=== PATIENT | male | born 1955 ===

== ENCOUNTER 2017-09-07 10:27 | Emergency (ER) | payer OTHER ==
[2017-09-07 10:28] VITALS: BMI 27.9
[2017-09-07 10:38] VITALS: TEMP 98
--- NOTE | 2017-09-07 11:08 | C.PDOC ---
History Of Present Illness 61 y/o male with hx of HTN and hyperlipidemia, c/o rash since this morning. Patient reports that he ate food with maral around 05:00 and is unsure if it is related to allergic reaction. Patient notes becoming itchy around 06:00 this morning, with hives. . Patient drank water with lemon and notes improvements of symptoms. Denies new substances. No wheezing or fever. No intra-orbital swelling or SOB. Time Seen by Provider: 09/07/17 10:43 Chief Complaint (Nursing): Allergic Reaction History Per: Patient History/Exam Limitations: no limitations Onset/Duration Of Symptoms: Hrs, Sudden Onset Current Symptoms Are (Timing): Still Present Quality Of Symptoms: Itching Severity: Mild Recent travel outside of the [place]: No Additional History Per: Patient Past Medical History Reviewed: Historical Data, Nursing Documentation, Vital Signs Vital Signs: Last Vital Signs Temp 98 F 09/07/17 10:33 Pulse 79 09/07/17 11:27 Resp 17 09/07/17 11:27 BP 136/79 09/07/17 11:27 Pulse Ox 99 09/07/17 11:57 - Medical History PMH: Arthritis, HTN, Hypercholesterolemia Denies: Chronic Kidney Disease Surgical History: Cholecystectomy, Tonsillectomy Family History: States: Unknown Family Hx - Social History Hx Alcohol Use: No Hx Substance Use: No - Immunization History Hx Tetanus Toxoid Vaccination: No Hx Influenza Vaccination: No Hx Pneumococcal Vaccination: No Review Of Systems Except As Marked, All Systems Reviewed And Found Negative. Constitutional: Negative for: Fever ENT: Negative for: Mouth Swelling, Throat Swelling Respiratory: Negative for: Shortness of Breath, Wheezing Skin: Positive for: Rash (Allergic reaction) Physical Exam - Physical Exam Appears: Non-toxic, No Acute Distress Skin: Warm, Dry, Rash (Mild maculopapular rash to the upper chest and shoulders. ) Head: Atraumatic, Normacephalic Oral Mucosa: Moist Tongue: Normal Appearing, No Swelling Lips: Normal Appearing, No Swelling Throat: Normal, No Erythema Neck: Supple Cardiovascular: Rhythm Regular, No Murmur Respiratory: Normal Breath Sounds, No Accessory Muscle Use, No Stridor, No Wheezing Neurological/Psych: Oriented x3 ED Course And Treatment O2 Sat by Pulse Oximetry: 99 (RA) Pulse Ox Interpretation: Normal Medical Decision Making Medical Decision Making: Plans: * Benadryl * Pepcid * Prednisone Patient is resting comfortably, tolerating PO, has no shortness of breath, has no intra-oral swelling, no stridor. Patient notes that pruritus has improved.. Patient was advised to avoid potential allergens, and to follow up with physician in 1-2 days. pt advised to d/c any new medications and avoid any potential precipitant food.s . pt advised to f/u in clinic for specialist. eval Disposition - Disposition Referrals: [facility] [Outside] [facility] [Outside] [facility] [Outside] [email or web address] [Outside] Disposition: HOME/ ROUTINE Disposition Time: 12:00 Condition: STABLE Additional Instructions: please follow up with your doctor. return to er with worsening symptoms or concerns. Prescriptions: DiphenhydrAMINE [Benadryl] 25 mg PO Q4 PRN #20 cap PRN Reason: Itching / Pruritus Famotidine [Pepcid] 20 mg PO DAILY #7 tab Prednisone 50 mg PO DAILY #4 tablet Instructions: Allergies (ED) Forms: [facility] ([place]i) Print Language: CZECH - Clinical Impression Clinical Impression: Allergic reaction - Scribe Statement The provider has reviewed the documentation as recorded by the Scribe Lacy duggan All medical record entries made by the Scribe were at my direction and personally dictated by me. I have reviewed the chart and agree that the record accurately reflects my personal performance of the history, physical exam, medical decision making, and the department course for this patient. I have also personally directed, reviewed, and agree with the discharge instructions and disposition.
[2017-09-07 11:27] VITALS: BP 136/79; PULSE 79; RESP 17
[2017-09-07 11:58] VITALS: O2SAT 99
== END 2017-09-07 11:29 | disposition home or self-care (01) ==
LOC: C.ER 10:27
DX: T78.40XA Allergy, unspecified, initial encounter (principal)

== ENCOUNTER 2017-10-16 08:52 | Inpatient (IN) | payer OTHER ==
[2017-10-16 08:52] VITALS: BMI 27.9
--- NOTE | 2017-10-16 10:15 | C.PDOC ---
History Of Present Illness 62 year old male with PMHx of CVA, HTN and HLD presents to the ED for evaluation of CP, palpitations and SOB on exertion. 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 Patient reports he was admitted 1 month ago for similar symptoms, he was d/c with prescriptions that finished, he states that while using the medications he still felt palpitations in his chest. Patient reports that yesterday while he was walking he felt SOB and palpitations once he got home he tried to lay down and rest but he still felt CP and palpitations. Patient denies fever, chills, abdominal pain, nausea, vomit, diarrhea, diaphoresis. Time Seen by Provider: 10/16/17 09:39 Chief Complaint (Nursing): Chest Pain History Per: Patient History/Exam Limitations: no limitations Onset/Duration Of Symptoms: Days Current Symptoms Are (Timing): Still Present Severity: Mild Pain Scale Rating Of: 4 Quality: "Pain" Exacerbating Factors: Movement, Exertion Alleviating Factors: None Recent travel outside of the [place]: No Additional History Per: Patient Past Medical History Reviewed: Historical Data, Nursing Documentation, Vital Signs Vital Signs: Last Vital Signs Temp 97.6 F 10/16/17 08:57 Pulse 108 H 10/16/17 13:30 Resp 18 10/16/17 13:30 BP 112/61 10/16/17 13:30 Pulse Ox 97 10/16/17 13:30 - Medical History PMH: Arthritis, HTN, Hypercholesterolemia Denies: Chronic Kidney Disease Surgical History: Cholecystectomy, Tonsillectomy Family History: States: Unknown Family Hx - Social History Hx Alcohol Use: No Hx Substance Use: No - Immunization History Hx Tetanus Toxoid Vaccination: No Hx Influenza Vaccination: No Hx Pneumococcal Vaccination: No Review Of Systems Constitutional: Negative for: Fever, Chills Cardiovascular: Positive for: Chest Pain, Palpitations Respiratory: Positive for: SOB with Excertion. Negative for: Cough Gastrointestinal: Negative for: Nausea, Vomiting, Abdominal Pain Musculoskeletal: Negative for: Back Pain Skin: Negative for: Rash Neurological: Negative for: Weakness, Numbness, Headache, Dizziness Physical Exam - Physical Exam Appears: Non-toxic, No Acute Distress Skin: Normal Color, Warm, Dry Head: Atraumatic, Normacephalic Nose: No Discharge, No Deformity Oral Mucosa: Moist Neck: Normal ROM, Supple Chest: Symmetrical Cardiovascular: Rhythm Regular, No Murmur Respiratory: Normal Breath Sounds, No Rales, No Rhonchi, No Wheezing Gastrointestinal/Abdominal: Soft, No Tenderness Extremity: Normal ROM, No Pedal Edema, No Calf Tenderness, No Swelling Neurological/Psych: Oriented x3, Normal Speech, Normal Cognition Gait: Steady ED Course And Treatment - Laboratory Results Result Diagrams: 10/16/17 10:37 10/16/17 10:37 O2 Sat by Pulse Oximetry: 100 (On RA) Pulse Ox Interpretation: Normal Medical Decision Making Medical Decision Making: Impression : 62 y/o male with CP, palpitations, SOB. Plan: * EKG * CXR * Plavix 600 mg PO * Tropol XL 25 mg PO * Blood work Spoke with laboratory gave result for: * Troponin 2.87 * BNP 2420 Disposition Discussed With DrMckenna: Cathie Calloway Doctor Will See Patient In The: Hospital Counseled Patient/Family Regarding: Studies Performed, Diagnosis - Disposition Disposition: HOSPITALIZED Disposition Time: 13:11 Condition: GUARDED - POA Present On Arrival: None - Clinical Impression Clinical Impression: NSTEMI (non-ST elevated myocardial infarction) - Scribe Statement The provider has reviewed the documentation as recorded by the Scribe Naseem Fraga All medical record entries made by the Scribe were at my direction and personally dictated by me. I have reviewed the chart and agree that the record accurately reflects my personal performance of the history, physical exam, medical decision making, and the department course for this patient. I have also personally directed, reviewed, and agree with the discharge instructions and disposition.
[2017-10-16 10:46] LABS: BASO # 0.1 K/uL (0.0-0.2); BASO % 0.6 % (0.0-2.0); EOS # 0.1 K/uL (0.0-0.7); EOS % 1.3 % (0.0-4.0); HEMATOCRIT 41.8 % (35.0-51.0); LYMPH # 1.4 K/uL (1.0-4.3); LYMPH % 15.7 % (20.0-40.0); MEAN CELL VOLUME 94.6 fL (80.0-94.0); MEAN CORPUSCULAR HEMOGLOBIN 32.6 pg (27.0-31.0); MEAN CORPUSCULAR HGB CONC 34.5 g/dL (33.0-37.0); MONO # 0.8 K/uL (0.0-0.8); MONO % 9.3 % (0.0-10.0); NRBC % 0.1 % (0.0-2.0); RED CELL DISTRIBUTION WIDTH 13.7 % (11.5-14.5); WHITE BLOOD COUNT 9.1 K/uL (4.8-10.8)
[2017-10-16 11:04] LABS: ALKALINE PHOSPHATASE 70 U/L (38-126); ALT/SGPT 25 U/L (21-72); AST/SGOT 71 U/L (17-59); BILIRUBIN,TOTAL 0.8 mg/dL (0.2-1.3); BLOOD UREA NITROGEN 13 mg/dL (9-20); CALCIUM 8.4 mg/dl (8.6-10.4); CARBON DIOXIDE 33 mmol/L (22-30); CHLORIDE 96 mmol/L (98-107); GFR AFRICAN-AMERICAN > 60; GLUCOSE,RANDOM 110 mg/dL (75-110); POTASSIUM 3.5 mmol/L (3.6-5.2); SODIUM 133 mmol/L (132-148); TOTAL PROTEIN 6.2 g/dL (6.3-8.3)
[2017-10-16 11:06] LABS: ALB/GLOB RATIO 1.6 (1.0-2.1)
[2017-10-16] MEDS ORDERED: Metoprolol Succinate 25 mg XL Tab PO STA (13:17)
[2017-10-16] MEDS ORDERED: Heparin25000 units/250ml 1/2NS 25,000 UNITS/250 ML BAG IV ONE (13:21)
--- NOTE | 2017-10-16 14:03 | CP.PCM.CON ---
<Michelle Pettit - Last Filed: 10/16/17 14:10> History of Present Illness - History of Present Illness History of Present Illness: PGY 2 consult note for cardiology, Dr. Maria 62 year old male with past medical history of HTN, HLD, hx of CVA in 2007 vitamin D deficiency presented to ED for left sided chest pain. Cardiology is consulted due to NSTEMI. Pt states that about 4 days ago he developed left sided chest pain. Pain was intermittent and radiating down left arm. Patient states that yesterday pain worsened after he went for a walk. Pain was also accompanied with palpitations. Pain was no associated with N/V, diaphoresis. 1 month ago, patient presented to hospital for left sided chest pain as well. At that time, cardiac markers and EKG were negative. Stress test done in 07/2016 was also negative. Patient denies having any recent travels or recent illnesses. Patient denies having any F/C, abd pain, N/V/D/C, LE pain or swelling, SOB, cough. 12 point ROS are negative except for the above mentioned PMHx: stated above PSHx: Lap Cholecystecomy 2011, per chart review: amygdala 1984 Allergies: Penicillin (known from allergy testing in past) Home medications: Plavix 75mg po qd, Aspirin 81 mg, tamsulosin 0.4mg po qd, vitamin D 2000u po qd, irbesartan 150mg po qd, hydrocholothiazide 25mg po qd, atorvastatin 40mg po qd, Ranexa? FamHx: Father - DMII, Mother - HTN SocialHx: 2 ppd for 30 years, quit smoking 30 years ago; denies alcohol or illicit drug use; lives at home with Review of Systems - Constitutional Constitutional: absent: Chills, Fever, Headache - EENT Eyes: absent: Change in Vision Nose/Mouth/Throat: absent: Nasal Congestion, Nasal Discharge, Sore Throat - Cardiovascular Cardiovascular: Chest Pain, Palpitations, Radiating Pain, Rapid Heart Rate. absent: Dyspnea, Edema, Pedal Edema - Respiratory Respiratory: absent: Cough, Dyspnea, Dyspnea on Exertion, Wheezing, Pain with Coughing - Gastrointestinal Gastrointestinal: absent: Abdominal Pain, Constipation, Diarrhea, Nausea, Vomiting - Genitourinary Genitourinary: absent: Urinary Frequency - Musculoskeletal Musculoskeletal: absent: Muscle Weakness - Neurological Neurological: absent: Numbness, Headaches, Paresthesias, Syncope - Psychiatric Psychiatric: absent: Confusion Past Patient History - Past Medical History & Family History Past Medical History?: Yes - Past Social History Smoking Status: Former Smoker - CARDIAC Hx Hypercholesterolemia: Yes Hx Hypertension: Yes - PULMONARY Hx Respiratory Disorders: No - NEUROLOGICAL Hx Neurological Disorder: Yes HX Cerebrovascular Accident: Yes (2006) - HEENT Hx HEENT Problems: No - RENAL Hx Chronic Kidney Disease: No - ENDOCRINE/METABOLIC Hx Endocrine Disorders: No - HEMATOLOGICAL/ONCOLOGICAL Hx Blood Disorders: No - INTEGUMENTARY Hx Dermatological Problems: No - MUSCULOSKELETAL/RHEUMATOLOGICAL Hx Arthritis: Yes - GASTROINTESTINAL Hx Gastrointestinal Disorders: No - GENITOURINARY/GYNECOLOGICAL Hx Genitourinary Disorders: No - PSYCHIATRIC Hx Substance Use: No - SURGICAL HISTORY Hx Cholecystectomy: Yes Hx Tonsillectomy: Yes - ANESTHESIA Hx Anesthesia: Yes Hx Anesthesia Reactions: No Hx Malignant Hyperthermia: No Meds Allergies/Adverse Reactions: Allergies Allergy/AdvReac Type Severity Reaction Status Date / Time Penicillins Allergy ANAPHYLAXIS Verified 10/16/17 08:58 diphenhydramine AdvReac Verified 10/16/17 12:19 [From Benadryl] - Medications Medications: Current Medications Aspirin (Ecotrin) 81 mg PO DAILY J[facility]ON Clopidogrel Bisulfate (Plavix) 75 mg PO DAILY [facility] Heparin Sodium/Sodium Chloride (Heparin 59379 Units/250ml 1/2 Normal Saline) 25 ,000 units in 250 mls @ 13.608 mls/hr IV .[id number] ONE; 15 UNITS/KG/HR PRN Reason: Protocol Stop: 10/17/17 07:43 Nitroglycerin (Nitrostat Sl Tab) 0.4 mg SL Q5M PRN PRN Reason: Pain, Mild (1-3) Physical Exam - Constitutional Appears: Non-toxic, No Acute Distress - Head Exam Head Exam: ATRAUMATIC, NORMOCEPHALIC - Eye Exam Eye Exam: EOMI - ENT Exam ENT Exam: Mucous Membranes Moist - Respiratory Exam Respiratory Exam: Clear to Auscultation Bilateral. absent: Accessory Muscle Use , Rales, Rhonchi, Wheezes, Respiratory Distress - Cardiovascular Exam Cardiovascular Exam: Tachycardia, +S1, +S2. absent: Diastolic murmur, Gallop, Rubs, Systolic Murmur - GI/Abdominal Exam GI & Abdominal Exam: Normal Bowel Sounds, Soft. absent: Distended, Firm, Guarding, Rigid, Tenderness - Extremities Exam Extremities exam: Negative for: pedal edema, tenderness - Neurological Exam Neurological exam: Alert, Oriented x3 - Psychiatric Exam Psychiatric exam: Normal Affect, Normal Mood - Skin Skin Exam: Dry, Intact, Normal Color, Warm Results - Vital Signs Recent Vital Signs: Last Vital Signs Temp 97.6 F 10/16/17 08:57 Pulse 67 10/16/17 12:11 Resp 18 10/16/17 12:11 BP 103/57 L 10/16/17 12:11 Pulse Ox 100 10/16/17 13:13 - Labs Result Diagrams: 10/16/17 10:37 10/16/17 10:37 Labs: Laboratory Results - last 24 hr 10/16/17 10/16/17 10:37 10:37 WBC 9.1 RBC 4.42 Hgb 14.4 Hct 41.8 MCV 94.6 H MCH 32.6 H MCHC 34.5 RDW 13.7 Plt Count 159 MPV 10.0 Neut % (Auto) 73.1 Lymph % (Auto) 15.7 L Real % (Auto) 9.3 Eos % (Auto) 1.3 Baso % (Auto) 0.6 Neut # 6.7 Lymph # 1.4 Real # 0.8 Eos # 0.1 Baso # 0.1 Sodium 133 Potassium 3.5 L Chloride 96 L Carbon Dioxide 33 H Anion Gap 8 L BUN 13 Creatinine 0.9 Est GFR ( Amer) > 60 Est GFR (Non-Af Amer) > 60 Random Glucose 110 Calcium 8.4 L Total Bilirubin 0.8 AST 71 H D ALT 25 Alkaline Phosphatase 70 Troponin I 2.8700 H* NT-Pro-B Natriuret Pep 2420 H Total Protein 6.2 L Albumin 3.9 Globulin 2.4 Albumin/Globulin Ratio 1.6 - EKG Data EKG Interpreted by: ER Physician Assessment & Plan - Assessment and Plan (Free Text) Assessment: 62 year old male with past medical history of HTN, HLD, CVA in 2007 on DAPT ( noncompliant for 1 month), impaired glucose tolerance is admitted for NSTEMI with elevated troponin and EKG changes. 1. NSTEMI - pt will have STAT echo done. Will be taken for cardiac cath today - Pt started on heparin drip therapeutic dose. - Stat dose of plavix and Aspirin and metoprolol given - Nitroglycerine prn - Continue daily Aspirin, plavix and metoprolol - Blood work from 09/02/17 showed Hgb A1c of 5.8; TG 71; Cholestrol 99; LDL 56; HDL 37 - Will continue to monitor VS Case discussed with Dr. Maria. All orders and management per Dr. Maria - Date & Time Date: 10/16/17 Time: 14:15 <Tyrone Maria - Last Filed: 10/16/17 17:16> Meds - Medications Medications: Current Medications Aspirin (Ecotrin) 81 mg PO DAILY JASON Clopidogrel Bisulfate (Plavix) 75 mg PO DAILY [facility] Heparin Sodium/Sodium Chloride (Heparin 52208 Units/250ml 1/2 Normal Saline) 25 ,000 units in 250 mls @ 13.608 mls/hr IV .[id number] ONE; 15 UNITS/KG/HR PRN Reason: Protocol Stop: 10/17/17 07:43 Last Admin: 10/16/17 14:30 Dose: 15 units/kg/hr, 13.608 mls/hr Metoprolol Succinate (Toprol Xl) 12.5 mg PO DAILY [facility] Nitroglycerin (Nitrostat Sl Tab) 0.4 mg SL Q5M PRN PRN Reason: Pain, Mild (1-3) Last Admin: 10/16/17 16:52 Dose: 0.4 mg Rosuvastatin Calcium (Crestor) 20 mg PO HS [facility] Results - Vital Signs Recent Vital Signs: Last Vital Signs Temp 97.6 F 10/16/17 08:57 Pulse 108 H 10/16/17 13:30 Resp 18 10/16/17 13:30 BP 112/61 10/16/17 13:30 Pulse Ox 100 10/16/17 14:55 - Labs Result Diagrams: 10/16/17 10:37 10/16/17 10:37 Labs: Laboratory Results - last 24 hr 10/16/17 10/16/17 10/16/17 10:37 10:37 14:54 WBC 9.1 RBC 4.42 Hgb 14.4 Hct 41.8 MCV 94.6 H MCH 32.6 H MCHC 34.5 RDW 13.7 Plt Count 159 MPV 10.0 Neut % (Auto) 73.1 Lymph % (Auto) 15.7 L Real % (Auto) 9.3 Eos % (Auto) 1.3 Baso % (Auto) 0.6 Neut # 6.7 Lymph # 1.4 Real # 0.8 Eos # 0.1 Baso # 0.1 APTT 34 Sodium 133 Potassium 3.5 L Chloride 96 L Carbon Dioxide 33 H Anion Gap 8 L BUN 13 Creatinine 0.9 Est GFR ( Amer) > 60 Est GFR (Non-Af Amer) > 60 Random Glucose 110 Hemoglobin A1c Calcium 8.4 L Total Bilirubin 0.8 AST 71 H D ALT 25 Alkaline Phosphatase 70 Troponin I 2.8700 H* NT-Pro-B Natriuret Pep 2420 H Total Protein 6.2 L Albumin 3.9 Globulin 2.4 Albumin/Globulin Ratio 1.6 LDL Cholesterol Direct Influenza Typ A,B (EIA) 10/16/17 10/16/17 10/16/17 16:17 16:17 16:17 WBC RBC Hgb Hct MCV MCH MCHC RDW Plt Count MPV Neut % (Auto) Lymph % (Auto) Real % (Auto) Eos % (Auto) Baso % (Auto) Neut # Lymph # Real # Eos # Baso # APTT Sodium Potassium Chloride Carbon Dioxide Anion Gap BUN Creatinine Est GFR ( Amer) Est GFR (Non-Af Amer) Random Glucose Hemoglobin A1c 5.6 Calcium Total Bilirubin AST ALT Alkaline Phosphatase Troponin I NT-Pro-B Natriuret Pep Total Protein Albumin Globulin Albumin/Globulin Ratio LDL Cholesterol Direct 36 Influenza Typ A,B (EIA) Negative for flu a/b Attending/Attestation - Attestation I have personally seen and examined this patient.: Yes I have fully participated in the care of the patient.: Yes I have reviewed all pertinent clinical information: Yes Notes (Text): 10/16/17 17:15 62 year old male with hx of htn, dyslipidemia presenting with typical CP and + ve TnI Echo - reviewed mild inferior hypokinesis with normal LVEF IV heparin ICU monitoring GDMT for CAD ( DAPT , BB, statins ) plan for cath at [facility] [place], [place] tomorrow at 2 pm NPO p BF in am
--- NOTE | 2017-10-16 14:26 | CP.PCM.HP ---
History of Present Illness - History of Present Illness History of Present Illness: Patient seen, examined at approximately 1:30PM on 10/16/17 on [facility] 7. CC: Palpitations HPI: 62 year old Male PMHX CVA (6-7 years ago), HTN, Lipid disorder comes in for chest pain, palpitations and associated dyspnea on exertion. Patient reports last Saturday, he felt chest pain, over left side of chest, while walking up hill, which stopped and had to breathe heavy. Patient reports chest pain improved on Saturday but was intermittent. Last night around 3:30AM, chest pain was more persistent, more frequent and he could not sleep. Patient reports he took his Plavix 75mgX1, Irebsratan [id number], Ranexa 500mg X1, and HCTZ 25mg X1last night but did not take Aspirin for the past month because did not have script. Patient reports when he first came into the Emergency Room his chest pain was 8/10, and now on assessment it is 3/10 on pain scale. Patient reports he is normally able to walk 40 blocks with ease prior to Saturday' s episode. ROS: denies headache, denies change in vision, denies hearing loss, reports chest pain, reports dyspnea on exertion, and angina on rest, denies cough, denies abdominal pain, denies nausea, denies vomitting, denies numbness, denies tingling, denies edema, denies dizziness. Medical Hx: CVA (6-7 years ago), Lipid disorder, HTN, impaired glucose tolerance , Vitamin D deficiency Surgery: Lap Cholecystecomy 2011, per chart review: 1984 Medications: Plavix 75mg po qd, tamsulosin 0.4mg po qd, vitamin D 2000u po qd, irbesartan 150mg po qd, hydrocholothiazide 25mg po qd, atorvastatin 40mg po qd, ranexa 500mg twice a day Allergies: PCN, benadryl (SE: makes his blood pressure come down?) Social: former smoker, stopped 30 years ago, 2ppd for 20 years, denies alcohol or illicit drug use; lives at home with Family Hx: Father- DM, Mother--HTN, No family hx of NC/CAD PMD: Dr. Alas, [facility] In the ED, given Aspirin 325mg POX1. Patient seen and evaluated by Dr Maria and his team, pending echo stat to determine next step. Cardiology discussed with patient and at bedside, with assistance of translation from Sarah Luong-speaker for cardiac cath given nonstemi. Discussed with ICU, Dr Boucher, awaiting plan from cardiology team. Present on Admission - Present on Admission Any Indicators Present on Admission: No History of DVT/PE: No History of Uncontrolled Diabetes: No Urinary Catheter: No Decubitus Ulcer Present: No Review of Systems - Constitutional Constitutional: Excessive Sweating, Lethargy. absent: Chills, Fever, Weakness - EENT Eyes: absent: Blurred Vision, Change in Vision Ears: Decreased Hearing (right sided, from prior stroke). absent: Ear Pain Nose/Mouth/Throat: absent: Epistaxis, Sore Throat - Cardiovascular Cardiovascular: Chest Pain, Chest Pain at Rest, Diaphoresis, Dyspnea, Palpitations, Radiating Pain. absent: Edema, Lightheadedness, Pedal Edema - Respiratory Respiratory: Dyspnea, Dyspnea on Exertion. absent: Cough, Hemoptysis, Wheezing - Gastrointestinal Gastrointestinal: absent: Abdominal Pain, Constipation, Diarrhea, Nausea, Vomiting - Genitourinary Genitourinary: absent: Dysuria - Musculoskeletal Musculoskeletal: absent: Myalgias, Numbness - Integumentary Integumentary: absent: Dry Skin, Unusual Bruising - Neurological Neurological: absent: Confusion, Convulsions, Headaches, Loss of Vision - Endocrine Endocrine: Fatigue, Palpitations Past Patient History - Past Medical History & Family History Past Medical History?: Yes - Past Social History Smoking Status: Former Smoker Alcohol: None Drugs: Denies Home Situation {Lives}: With Family - CARDIAC Hx Cardiac Disorders: Yes Hx Hypercholesterolemia: Yes Hx Hypertension: Yes - PULMONARY Hx Respiratory Disorders: No - NEUROLOGICAL Hx Neurological Disorder: Yes HX Cerebrovascular Accident: Yes (2006) - HEENT Hx HEENT Problems: No - RENAL Hx Chronic Kidney Disease: No - ENDOCRINE/METABOLIC Hx Endocrine Disorders: No - HEMATOLOGICAL/ONCOLOGICAL Hx Blood Disorders: No - INTEGUMENTARY Hx Dermatological Problems: No - MUSCULOSKELETAL/RHEUMATOLOGICAL Hx Arthritis: Yes - GASTROINTESTINAL Hx Gastrointestinal Disorders: No - GENITOURINARY/GYNECOLOGICAL Hx Genitourinary Disorders: No - PSYCHIATRIC Hx Substance Use: No - SURGICAL HISTORY Hx Cholecystectomy: Yes Hx Tonsillectomy: Yes - ANESTHESIA Hx Anesthesia: Yes Hx Anesthesia Reactions: No Hx Malignant Hyperthermia: No Meds Allergies/Adverse Reactions: Allergies Allergy/AdvReac Type Severity Reaction Status Date / Time Penicillins Allergy ANAPHYLAXIS Verified 10/16/17 08:58 diphenhydramine AdvReac Verified 10/16/17 12:19 [From Benadryl] Physical Exam - Constitutional Appears: Non-toxic, No Acute Distress - Head Exam Head Exam: NORMAL INSPECTION - Eye Exam Eye Exam: EOMI, PERRL. absent: Nystagmus, Scleral icterus Pupil Exam: NORMAL ACCOMODATION - ENT Exam ENT Exam: Mucous Membranes Moist - Neck Exam Neck exam: Negative for: Meningismus, Thyromegaly - Respiratory Exam Respiratory Exam: Clear to Auscultation Bilateral, NORMAL BREATHING PATTERN. absent: Rales, Rhonchi, Wheezes, Stridor - Cardiovascular Exam Cardiovascular Exam: Tachycardia, +S1, +S2. absent: JVD - GI/Abdominal Exam GI & Abdominal Exam: Normal Bowel Sounds, Soft. absent: Distended, Firm, Guarding, Rebound, Rigid, Tenderness - Extremities Exam Extremities exam: Positive for: normal capillary refill, pedal pulses present. 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 no erythema, no swelling Muscle strength 5/5 sensation intact - Back Exam Back exam: absent: CVA tenderness (L), CVA tenderness (R), rash noted - Neurological Exam Neurological exam: Alert, CN II-XII Intact, Oriented x3 - Expanded Neurological Exam Expanded Neuro motor strength exam: Left Upper Extremity: 5, Right Upper Extremity: 5, Left Lower Extremity: 5, Right Lower Extremity: 5 Coma Scale Eye Opening: SPONTANEOUS Coma Scale Motor Response: OBEYS COMMANDS Coma Scale Verbal: Oriented Coma Scale Total: 15 - Psychiatric Exam Psychiatric exam: Normal Affect, Normal Mood - Skin Skin Exam: Dry, Intact, Normal Color, Warm Results - Vital Signs Recent Vital Signs: Last Vital Signs Temp 97.6 F 10/16/17 08:57 Pulse 67 10/16/17 12:11 Resp 18 10/16/17 12:11 BP 103/57 L 10/16/17 12:11 Pulse Ox 100 10/16/17 13:13 - Labs Result Diagrams: 10/16/17 10:37 10/16/17 10:37 Labs: Laboratory Results - last 24 hr 12/20/17 12/20/17 10:37 10:37 WBC 9.1 RBC 4.42 Hgb 14.4 Hct 41.8 MCV 94.6 H MCH 32.6 H MCHC 34.5 RDW 13.7 Plt Count 159 MPV 10.0 Neut % (Auto) 73.1 Lymph % (Auto) 15.7 L Castro % (Auto) 9.3 Eos % (Auto) 1.3 Baso % (Auto) 0.6 Neut # 6.7 Lymph # 1.4 Castro # 0.8 Eos # 0.1 Baso # 0.1 Sodium 133 Potassium 3.5 L Chloride 96 L Carbon Dioxide 33 H Anion Gap 8 L BUN 13 Creatinine 0.9 Est GFR ( Amer) > 60 Est GFR (Non-Af Amer) > 60 Random Glucose 110 Calcium 8.4 L Total Bilirubin 0.8 AST 71 H D ALT 25 Alkaline Phosphatase 70 Troponin I 2.8700 H* NT-Pro-B Natriuret Pep 2420 H Total Protein 6.2 L Albumin 3.9 Globulin 2.4 Albumin/Globulin Ratio 1.6 Assessment & Plan (1) Hypokalemia Status: Acute (2) NSTEMI (non-ST elevated myocardial infarction) Status: Acute (3) Benign prostatic hyperplasia Status: Chronic Priority: Medium (4) HLD (hyperlipidemia) Status: Chronic Priority: Medium (5) History of CVA (cerebrovascular accident) Status: Chronic Priority: Medium (6) Hypertension Status: Chronic Priority: Medium (7) Impaired glucose tolerance Status: Chronic Priority: Medium (8) Prophylactic measure Status: Resolved Priority: Low - Assessment and Plan (Free Text) Assessment: Assessment/Plan (1) NONSTEMI Chest pain on exertion Assessment and Plan: * Cardiology consult, Dr Maria on board-->help appreciated * ICU, Dr Boucher, case discussed-->help appreciated * Elevated Troponin, not STEMI on EKG * Pending echocardiogram * To determine cardiac cath plan by cardiology team * Aspirin 325mg po dose given in ED, * Lipid panel: within normal; a1c; 5.8 * STACEY: 4 (CAD risk factors, Used plavix (instead of aspirin), Severe angina 2 episodes in 24 hours, Positive cardiac marker) * Placed on Heparin drip * Aspirin 81mg PO daily * Plavix 75mg PO daily * Toprol XL 12.m5 PO daily * Nitrosublingual 0.4ml SL Q3-5 min X3 doses * UDS pending * TSH ordered (2) Hypertension Assessment and Plan: * Monitor vital signs * Patient given Dose of Toprol Xl in the ED X1 Status: Chronic (3) History of CVA (cerebrovascular accident) Assessment and Plan: * Continue home medication plavix 75mg po qd * Start losartan 50mg po qd; (home medication irbesartan 150mg not carried on hospital formulary) * start rosuvastatin 20mg po qd (home medication atorvastatin 40mg is not carried on hospital formulary) Status: Chronic (4) HLD (hyperlipidemia) Assessment and Plan: * Administer rosuvastatin 20mg po qd (home medication atorvastatin 40mg is not carried here) * Lipid panel ordered: controlled Status: Chronic (5) Impaired glucose tolerance Assessment and Plan: * Monitor Accuchecks Qac and HS * HgbA1C 07/2017: 6.0--->09/02/17: 5.8 Status: Chronic (6) Benign prostatic hyperplasia Assessment and Plan: * Continue home medication tamsulosin 0.4mg po qd-->resume upon discharge Status: Chronic (7) Hypokalemia Assessment and Plan: * Replete Status: Acute (8) Prophylactic measure Assessment and Plan: * Heparin Drip * NPO after breakfast-->Cardiac cath 10/17/17 Status: Acute Pending plan from cardiology team to determine cardiac cath. medicine and ICU teams are aware. Discussed with patient's ED nurse, we are awaiting echocardiogram. Updated: Discussed with cardiology and ICU teams; echocardiogram reviewed by cardiology team, scheduled for cardiac cath tomorrow 10/17 at 2pm, NPO after breakfast. Patient is accepted to ICU for further monitoring. - Date & Time Date: 10/17/17 Time: 14:01
--- NOTE | 2017-10-16 15:53 | CP.CCUPN ---
CCU Subjective - Physician Review Subjective (Free Text): Patient seen, examined at approximately 1:30PM on 10/16/17 on [facility] Bed 7. CC: Palpitations HPI: 62 year old Male PMHX CVA (6-7 years ago), HTN, Lipid disorder comes in for chest pain, palpitations and associated dyspnea on exertion. Patient reports last Saturday, he felt chest pain, over left side of chest, while walking up hill, which stopped and had to breathe heavy. Patient reports chest pain improved on Saturday but was intermittent. Last night around 3:30AM, chest pain was more persistent, more frequent and he could not sleep. Patient reports he took his Plavix 75mgX1, Irebsratan [id number], Ranexa 500mg X1, and HCTZ 25mg X1 last night but did not take Aspirin for the past month because did not have script. Patient states the last time he took Ranexa 10/02. Patient reports when he first came into the Emergency Room his chest pain was 8/10, and now on assessment it is 3/10 on pain scale. Patient reports he is normally able to walk 40 blocks with ease prior to Saturday' s episode. ROS: denies headache, denies change in vision, denies hearing loss, reports chest pain, reports dyspnea on exertion, and angina on rest, denies cough, denies abdominal pain, denies nausea, denies vomiting, denies numbness, denies tingling, denies edema, denies dizziness. Medical Hx: CVA (6-7 years ago), Lipid disorder, HTN, impaired glucose tolerance , Vitamin D deficiency Surgery: Lap Cholecystecomy 2011, per chart review: 1984 Medications: Plavix 75mg po qd, tamsulosin 0.4mg PO QD, vitamin D 2000u po qd, irbesartan 150mg po qd, hydrocholothiazide 25mg po qd, atorvastatin 40mg po qd, ranexa 500mg twice a day Allergies: PCN, benadryl (SE: makes his blood pressure come down?) Social: former smoker, stopped 30 years ago, 2ppd for 20 years, denies alcohol or illicit drug use; lives at home with Family Hx: Father- DM, Mother--HTN, No family hx of ID/CAD PMD: Dr. Alas, [facility] In the ED, given Aspirin 325mg POX1. Patient seen and evaluated by Dr Maria and his team, pending echo stat to determine next step. Cardiology discussed with patient and at bedside, with assistance of translation from Cherise, Tuvaluan-speaker for cardiac cath given NSTEMI Discussed with ICU, Dr Boucher, awaiting plan from cardiology team. CCU Objective - Vital Signs / Intake & Output Vital Signs (Last 4 hours): Vital Signs Pulse Resp BP Pulse Ox 10/16/17 14:55 100 10/16/17 13:30 108 H 18 112/61 97 10/16/17 12:11 67 18 103/57 L 97 Intake and Output (Last 8hrs): Intake & Output 10/16/17 10/16/17 10/16/17 06:59 14:59 22:59 Weight 200 lb - Physical Exam Head: Positive for: Atraumatic, Normocephalic. Negative for: Tenderness Extroacular Muscles: Positive for: EOMI Conjunctiva: Positive for: Normal Pharnyx: Positive for: Normal. Negative for: ERYTHEMA, EXUDATE Neck: Positive for: Normal Range of Motion. Negative for: JVD Cardiovascular: Positive for: Normal S1, S2, Tachycardic Skin: Positive for: Warm, Dry, Normal Color Psychiatric: Positive for: Alert, Oriented x 3, Normal Insight - Medications Active Medications: Active Medications Generic Name Dose Route Start Last Admin Trade Name Freq PRN Reason Stop Dose Admin Aspirin 81 mg 10/17/17 10:00 Ecotrin PO DAILY [facility] Clopidogrel Bisulfate 75 mg 10/17/17 10:00 Plavix PO DAILY [facility] Heparin Sodium/Sodium Chloride 25,000 units in 250 mls @ 13.608 mls/hr 13:21 10/16/17 14:30 Heparin 91487 Units/250ml 1/2 Normal Saline IV 10/17/17 07:43 15 units/kg/ hr .[id number] ONE 13.608 mls/hr Protocol Administration 15 UNITS/KG/HR Potassium Chloride 20 meq in 100 mls @ 50 mls/hr 10/16/17 14:36 Potassium Chloride 20 Meq/100 Ml IVPB 10/16/17 16:35 ONCE ONE Metoprolol Succinate 12.5 mg 10/17/17 10:00 Toprol Xl PO DAILY [facility] Nitroglycerin 0.4 mg 10/16/17 13:56 Nitrostat Sl Tab SL Q5M PRN Pain, Mild (1-3) Rosuvastatin Calcium 20 mg 10/16/17 22:00 Crestor PO HS JASON - Patient Studies Lab Studies: Lab Studies 10/16/17 10/16/17 10/16/17 Range/Units 14:54 10:37 10:37 WBC 9.1 (4.8-10.8) K/uL RBC 4.42 (4.40-5.90) Mil/uL Hgb 14.4 (12.0-18.0) g/dL Hct 41.8 (35.0-51.0) % MCV 94.6 H (80.0-94.0) fL MCH 32.6 H (27.0-31.0) pg MCHC 34.5 (33.0-37.0) g/dL RDW 13.7 (11.5-14.5) % Plt Count 159 (130-400) K/uL MPV 10.0 (7.2-11.7) fL Neut % (Auto) 73.1 (50.0-75.0) % Lymph % (Auto) 15.7 L (20.0-40.0) % Lee % (Auto) 9.3 (0.0-10.0) % Eos % (Auto) 1.3 (0.0-4.0) % Baso % (Auto) 0.6 (0.0-2.0) % Neut # 6.7 (1.8-7.0) K/uL Lymph # 1.4 (1.0-4.3) K/uL Lee # 0.8 (0.0-0.8) K/uL Eos # 0.1 (0.0-0.7) K/uL Baso # 0.1 (0.0-0.2) K/uL APTT 34 (21-34) SECONDS Sodium 133 (132-148) mmol/L Potassium 3.5 L (3.6-5.2) mmol/L Chloride 96 L (98-107) mmol/L Carbon Dioxide 33 H (22-30) mmol/L Anion Gap 8 L (10-20) BUN 13 (9-20) mg/dL Creatinine 0.9 (0.8-1.5) mg/dL Est GFR ( Amer) > 60 Est GFR (Non-Af Amer) > 60 Random Glucose 110 (75-110) mg/dL Calcium 8.4 L (8.6-10.4) mg/dl Total Bilirubin 0.8 (0.2-1.3) mg/dL AST 71 H D (17-59) U/L ALT 25 (21-72) U/L Alkaline Phosphatase 70 (38-126) U/L Troponin I 2.8700 H* (0.00-0.120) ng/mL NT-Pro-B Natriuret Pep 2420 H (0-900) pg/mL Total Protein 6.2 L (6.3-8.3) g/dL Albumin 3.9 (3.5-5.0) g/dL Globulin 2.4 (2.2-3.9) gm/dL Albumin/Globulin Ratio 1.6 (1.0-2.1) Laboratory Results - last 24 hr 10/16/17 10/16/17 10/16/17 10:37 10:37 14:54 WBC 9.1 RBC 4.42 Hgb 14.4 Hct 41.8 MCV 94.6 H MCH 32.6 H MCHC 34.5 RDW 13.7 Plt Count 159 MPV 10.0 Neut % (Auto) 73.1 Lymph % (Auto) 15.7 L Lee % (Auto) 9.3 Eos % (Auto) 1.3 Baso % (Auto) 0.6 Neut # 6.7 Lymph # 1.4 Lee # 0.8 Eos # 0.1 Baso # 0.1 APTT 34 Sodium 133 Potassium 3.5 L Chloride 96 L Carbon Dioxide 33 H Anion Gap 8 L BUN 13 Creatinine 0.9 Est GFR ( Amer) > 60 Est GFR (Non-Af Amer) > 60 Random Glucose 110 Calcium 8.4 L Total Bilirubin 0.8 AST 71 H D ALT 25 Alkaline Phosphatase 70 Troponin I 2.8700 H* NT-Pro-B Natriuret Pep 2420 H Total Protein 6.2 L Albumin 3.9 Globulin 2.4 Albumin/Globulin Ratio 1.6 EKG/Cardiology Studies: Cardiology / EKG Studies 10/16/17 08:58 EKG [ELECTROCARDIOGRAM] Stat Comment: Mode Of Transportation: PORTABLE Reason For Exam: Chest pain 10/16/17 10:21 ELECTROCARDIOGRAM Stat Comment: Mode Of Transportation: BED Reason For Exam: chest pain 10/16/17 15:34 EKG [ELECTROCARDIOGRAM] Stat Comment: Mode Of Transportation: Reason For Exam: chest pain Critical Care Progress Note - Ventilator Checklist Head of Bed 30 Degrees: Yes Daily Sedation Vacation: No Daily Assessment of Readiness to Wean: No Daily Spontaneous Breathing Trial: No PUD Prophalyxis: Yes DVT Prophylaxis: Yes - Extremities/Vascular Does the Patient have a Central Venous Catheter?: No Does the Patient need a Central Venous Catheter?: No Does the Patient have a Castillo Catheter?: No - Prophylaxis DVT Prophylaxis DVT: Heparin SQ - Nutrition Nutrition: Nutrition Category Date Time Status NPO Diet [DIET] Diets 10/16/17 Dinner Active Assessment/Plan - Assessment and Plan (Free Text) Assessment: Cardio Troponin I 10:37 2.8700 CONOR 15:34, 21:49 BNP 2420 Cardiology Consult: Dr. Maria Diet: HHD Endo Hemoglobin A1c Lipid Panel TSH Heme/onc ID monitor WBCs - Date & Time Date: 10/16/17 Time: 16:08
--- NOTE | 2017-10-16 15:57 | RAD ---
PROCEDURE: CHEST RADIOGRAPH, 1 VIEW HISTORY: chest pain COMPARISON: Chest radiograph dated 09/02/2017. FINDINGS: LUNGS: Clear. PLEURA: No pneumothorax or pleural fluid seen. CARDIOVASCULAR: Atherosclerotic aortic calcifications. Cardiomediastinal silhouette stably prominent. OSSEOUS STRUCTURES: Unchanged. VISUALIZED UPPER ABDOMEN: Normal. OTHER FINDINGS: None. IMPRESSION: No active disease.
[2017-10-16 17:23] LABS: TROPONIN I 4.96 ng/mL (0.00-0.120)
[2017-10-16 17:36] LABS: THYROID STIMULATING HORMONE 1.62 mIU/L (0.46-4.68)
[2017-10-16] MEDS ORDERED: Sodium Chloride 0.9% 250 ML IV ONE (17:44)
--- NOTE | 2017-10-16 17:57 | CP.PCM.CON ---
<Soo Vazquez - Last Filed: 10/16/17 18:26> History of Present Illness - History of Present Illness History of Present Illness: Patient seen, examined at approximately 1:30PM on 10/16/17 on [facility]. CC: Chest pain HPI: 62 year old Male PMHX CVA (1999), HTN, Lipid disorder comes in for chest pain, palpitations and associated dyspnea on exertion. Patient reports last Saturday, he felt chest pain, over left side of chest, while walking up hill, which stopped and had to breathe heavy. Patient reports chest pain improved on Saturday but was intermittent. Last night around 3:30AM, chest pain was more persistent, more frequent and he could not sleep. Patient reports he took his Plavix 75mg once, Irebsratan 150mg once, and HCTZ 25mg once, last night but did not take Ranexa since October 02 because did not have script for refills. Patient states the last time he took Ranexa 10/02. Patient reports when he first came into the Emergency Room his chest pain was 8/10, and now on assessment it is 3/10 on pain scale. Patient states that he's had problems for about a month which has been about the same until Saturday, when pain was the worst it's been. Patient reports he is normally able to walk 40 blocks with ease prior to Saturday's episode. Patient denies fever, chills, headache, denies change in vision, denies hearing loss, reports chest pain, reports dyspnea on exertion, and angina on rest, denies cough, denies abdominal pain, denies nausea, denies vomiting, denies numbness, denies tingling, denies edema, denies dizziness. Medical Hx: CVA (6-7 years ago), Lipid disorder, HTN, impaired glucose tolerance , Vitamin D deficiency Surgery: Lap Cholecystecomy 2011, per chart review: 1984 Home Medications: Plavix 75mg po qd, tamsulosin 0.4mg PO QD, vitamin D 2000u po qd, irbesartan 150mg PO QD, hydrochlorothiazide 25mg PO QD, atorvastatin 40mg PO QD, Ranexa 500mg BID (last taken 10/02) Allergies: PCN, benadryl (SE: makes his blood pressure come down?) Social: former smoker, stopped 30 years ago, 2ppd for 20 years, denies alcohol or illicit drug use; lives at home with Family Hx: Father- DM, Mother--HTN, No family hx of VT/CAD PMD: Dr. Alas, Clinic and Resident [facility]ana In the ED, given Aspirin 325mg PO Once. Patient was seen and evaluated by Cardiology Dr. Maria, Patient had an echo and was admitted to the ICU. Cardiology discussed with patient and at bedside, with assistance of translation from Cherise, [employer]-speaker for cardiac cath given NSTEMI. Troponin I came back positive and elevated x2 Past Patient History - Past Medical History & Family History Past Medical History?: Yes - Past Social History Smoking Status: Former Smoker - CARDIAC Hx Hypercholesterolemia: Yes Hx Hypertension: Yes - PULMONARY Hx Respiratory Disorders: No - NEUROLOGICAL Hx Neurological Disorder: Yes HX Cerebrovascular Accident: Yes (2006) - HEENT Hx HEENT Problems: No - RENAL Hx Chronic Kidney Disease: No - ENDOCRINE/METABOLIC Hx Endocrine Disorders: No - HEMATOLOGICAL/ONCOLOGICAL Hx Blood Disorders: No - INTEGUMENTARY Hx Dermatological Problems: No - MUSCULOSKELETAL/RHEUMATOLOGICAL Hx Falls: No - GASTROINTESTINAL Hx Gastrointestinal Disorders: No - GENITOURINARY/GYNECOLOGICAL Hx Genitourinary Disorders: No - PSYCHIATRIC Hx Substance Use: No - SURGICAL HISTORY Hx Cholecystectomy: Yes Hx Tonsillectomy: Yes Other/Comment: amputated 1 finger 9thumb on left hand - ANESTHESIA Hx Anesthesia: Yes Hx Anesthesia Reactions: No Hx Malignant Hyperthermia: No Has any member of the family had a problem w/ anesthesia?: No Meds Allergies/Adverse Reactions: Allergies Allergy/AdvReac Type Severity Reaction Status Date / Time Penicillins Allergy ANAPHYLAXIS Verified 10/16/17 08:58 diphenhydramine AdvReac Verified 10/16/17 12:19 [From Benadryl] - Medications Medications: Current Medications Aspirin (Ecotrin) 81 mg PO DAILY JASON Clopidogrel Bisulfate (Plavix) 75 mg PO DAILY JASON Heparin Sodium/Sodium Chloride (Heparin 57229 Units/250ml 1/2 Normal Saline) 25 ,000 units in 250 mls @ 13.608 mls/hr IV .[id number] ONE; 15 UNITS/KG/HR PRN Reason: Protocol Stop: 10/17/17 07:43 Last Admin: 10/16/17 14:30 Dose: 15 units/kg/hr, 13.608 mls/hr Sodium Chloride (Sodium Chloride 0.9%) 250 mls @ 250 mls/hr IV .Q1H ONE Stop: 10/16/17 18:43 Metoprolol Succinate (Toprol Xl) 12.5 mg PO DAILY JASON Nitroglycerin (Nitrostat Sl Tab) 0.4 mg SL Q5M PRN PRN Reason: Pain, Mild (1-3) Last Admin: 10/16/17 16:52 Dose: 0.4 mg Rosuvastatin Calcium (Crestor) 20 mg PO HS [facility] Physical Exam - Head Exam Head Exam: NORMAL INSPECTION - Eye Exam Eye Exam: EOMI, Normal appearance - Cardiovascular Exam Cardiovascular Exam: Bradycardia, +S1, +S2 - GI/Abdominal Exam GI & Abdominal Exam: Normal Bowel Sounds, Soft. absent: Tenderness - Neurological Exam Neurological exam: CN II-XII Intact, Normal Gait, Oriented x3 - Psychiatric Exam Psychiatric exam: Normal Affect, Normal Mood - Skin Skin Exam: Dry, Normal Color, Warm Results - Vital Signs Recent Vital Signs: Last Vital Signs Temp 97.6 F 10/16/17 08:57 Pulse 108 H 10/16/17 13:30 Resp 18 10/16/17 13:30 BP 112/61 10/16/17 13:30 Pulse Ox 100 10/16/17 14:55 - Labs Result Diagrams: 10/16/17 10:37 10/16/17 10:37 Labs: Laboratory Results - last 24 hr 10/16/17 10/16/17 10/16/17 10:37 10:37 14:54 WBC 9.1 RBC 4.42 Hgb 14.4 Hct 41.8 MCV 94.6 H MCH 32.6 H MCHC 34.5 RDW 13.7 Plt Count 159 MPV 10.0 Neut % (Auto) 73.1 Lymph % (Auto) 15.7 L [place] % (Auto) 9.3 Eos % (Auto) 1.3 Baso % (Auto) 0.6 Neut # 6.7 Lymph # 1.4 [place] # 0.8 Eos # 0.1 Baso # 0.1 APTT 34 Sodium 133 Potassium 3.5 L Chloride 96 L Carbon Dioxide 33 H Anion Gap 8 L BUN 13 Creatinine 0.9 Est GFR ( Amer) > 60 Est GFR (Non-Af Amer) > 60 Random Glucose 110 Hemoglobin A1c Calcium 8.4 L Total Bilirubin 0.8 AST 71 H D ALT 25 Alkaline Phosphatase 70 Total Creatine Kinase CK-MB (Mass) Troponin I 2.8700 H* NT-Pro-B Natriuret Pep 2420 H Total Protein 6.2 L Albumin 3.9 Globulin 2.4 Albumin/Globulin Ratio 1.6 Triglycerides Cholesterol LDL Cholesterol Direct HDL Cholesterol TSH 3rd Generation Influenza Typ A,B (EIA) 10/16/17 10/16/17 10/16/17 16:17 16:17 16:17 WBC RBC Hgb Hct MCV MCH MCHC RDW Plt Count MPV Neut % (Auto) Lymph % (Auto) [place] % (Auto) Eos % (Auto) Baso % (Auto) Neut # Lymph # [place] # Eos # Baso # APTT Sodium Potassium Chloride Carbon Dioxide Anion Gap BUN Creatinine Est GFR ( Amer) Est GFR (Non-Af Amer) Random Glucose Hemoglobin A1c 5.6 Calcium Total Bilirubin AST ALT Alkaline Phosphatase Total Creatine Kinase 456 H CK-MB (Mass) 48.4 H Troponin I 4.9600 H* NT-Pro-B Natriuret Pep Total Protein Albumin Globulin Albumin/Globulin Ratio Triglycerides 58 Cholesterol 102 LDL Cholesterol Direct 36 HDL Cholesterol 44 TSH 3rd Generation 1.62 Influenza Typ A,B (EIA) Negative for flu a/b Assessment & Plan - Assessment and Plan (Free Text) Assessment: Cardio hx hypertension, stable angina Troponin I 10:37 2.8700 CONOR 15:34 4.96, f/u CONOR 21:49 CONOR Q6H w/ EKG until procedure BNP 2420 10/16 EKG: t wave inversion in inferior leads, suggesting inferior infarct Cardiology Consult: Dr. Maria laborer laboratory tomorrow 2pm, continue heparin drip per Dr. Maria ASA 81mg POQD JASON Plavix 75mg POQD Toprol 12.5 mg POQD Nitroglycerin 20mg PO Q HS NS @ 250cc/hr Pulmonology NC @ 4L Endo hx hyperlipidemia Hemoglobin A1c Lipid Panel TSH Prophylaxis: Heparin drip Diet: HHD discussed with Dr. Citlaly Vann Eng PGY1 - Date & Time Date: 10/16/17 Time: 18:24 <Glenn Boucher P - Last Filed: 10/20/17 21:17> Results - Vital Signs Recent Vital Signs: Last Vital Signs Temp 97.6 F 10/19/17 07:00 Pulse 71 10/19/17 07:00 Resp 20 10/19/17 07:00 BP 94/55 L 10/19/17 10:28 Pulse Ox 98 10/19/17 07:00 - Labs Result Diagrams: 10/19/17 08:22 10/19/17 08:22 Attending/Attestation - Attestation I have personally seen and examined this patient.: Yes I have fully participated in the care of the patient.: Yes I have reviewed all pertinent clinical information: Yes Notes (Text): Patient evaluated with resident, d/w consultants, agreed with assessment/plan.
[2017-10-16 22:26] LABS: INR 1.2
[2017-10-17 05:33] LABS: BASO # 0.1 K/uL (0.0-0.2); BASO % 1.6 % (0.0-2.0); EOS # 0.1 K/uL (0.0-0.7); HEMATOCRIT 38.7 % (35.0-51.0); LYMPH # 1.4 K/uL (1.0-4.3); LYMPH % 18.6 % (20.0-40.0); MEAN CELL VOLUME 93.2 fL (80.0-94.0); MEAN CORPUSCULAR HEMOGLOBIN 32.5 pg (27.0-31.0); MEAN CORPUSCULAR HGB CONC 34.9 g/dL (33.0-37.0); MEAN PLATELET VOLUME 9.6 fL (7.2-11.7); MONO # 0.8 K/uL (0.0-0.8); MONO % 10.2 % (0.0-10.0); RED CELL DISTRIBUTION WIDTH 13.9 % (11.5-14.5); WHITE BLOOD COUNT 7.4 K/uL (4.8-10.8)
[2017-10-17 06:18] LABS: ALB/GLOB RATIO 1.5 (1.0-2.1); ALKALINE PHOSPHATASE 63 U/L (38-126); ALT/SGPT 27 U/L (21-72); AST/SGOT 149 U/L (17-59); BILIRUBIN,TOTAL 1.6 mg/dL (0.2-1.3); BLOOD UREA NITROGEN 13 mg/dL (9-20); CALCIUM 8.3 mg/dl (8.6-10.4); CARBON DIOXIDE 29 mmol/L (22-30); CHLORIDE 101 mmol/L (98-107); GFR AFRICAN-AMERICAN > 60; GLUCOSE,RANDOM 115 mg/dL (75-110); MAGNESIUM 1.8 mg/dL (1.6-2.3); PHOSPHOROUS 3.4 mg/dL (2.5-4.5); POTASSIUM 3.6 mmol/L (3.6-5.2); SODIUM 134 mmol/L (132-148); TOTAL PROTEIN 5.6 g/dL (6.3-8.3)
[2017-10-17] MEDS ORDERED: Sodium Chloride 0.9% 1,000 ML IV ONE (08:21)
[2017-10-17] MEDS: Metoprolol Succinate 12.5 mg XL PO SCH (09:56)
--- NOTE | 2017-10-17 11:18 | CARD ---
APPROVED REPORT EXAM: Two-dimensional and M-mode echocardiogram with Doppler and color Doppler. Other Information Quality : GoodRhythm : INDICATION CVA/TIA Chest Pain Non STEMI RISK FACTORS Hypertension Hyperlipidemia 2D DIMENSIONS IVSd1.1 (0.7-1.1cm)LVDd5.4 (3.9-5.9cm) PWd1.1 (0.7-1.1cm)LVDs3.9 (2.5-4.0cm) FS (%) 28.5 %LVEF (%)54.4 (>50%) M-Mode DIMENSIONS RVDd1.87 (2.1-3.2cm)Left Atrium (MM)4.30 (2.5-4.0cm) IVSd0.90 (0.7-1.1cm)Aortic Root2.82 (2.2-3.7cm) LVDd5.90 (4.0-5.6cm)Aortic Cusp Exc.2.00 (1.5-2.0cm) PWd0.87 (0.7-1.1cm)FS (%) 29 % LVDs4.20 (2.0-3.8cm)LVEF (%)55 (>50%) Aortic Valve AI P 1/2 [id number] Mitral Valve MV E Uzhcvaqr30.0cm/sMV A Wtxfjoxy031.4cm/sE/A ratio0.5 TDI E/Lateral E'0.0E/Medial E'0.0 Tricuspid Valve TR Peak [id number]/sTR Peak [id number] LEFT VENTRICLE The left ventricle is normal size. There is normal left ventricular wall thickness. Left ventricle systolic function is low normal. The Ejection Fraction is 50-55%. There is mild hypokinesis in the mid-inferior wall consistent with CAD. Transmitral Doppler flow pattern is abnormal.Grade I-abnormal relaxation pattern. No left ventricle thrombus noted on this study. RIGHT VENTRICLE The right ventricle is normal size. The right ventricular systolic function is normal. ATRIA The left atrium is mildly dilated. The right atrium size is normal. AORTIC VALVE The aortic valve is mildly sclerotic. The aortic valve is trileaflet. There is mild to moderate aortic regurgitation. There is no aortic valvular stenosis. There is no aortic valvular vegetation. MITRAL VALVE Mitral annular calcification is mild. There is no evidence of mitral valve prolapse. There is no mitral valve stenosis. Mitral regurgitation is mild. TRICUSPID VALVE The tricuspid valve is normal in structure. There is mild tricuspid regurgitation. Right ventricular systolic pressure is estimated at 30-40 mmHg. There is no pulmonary hypertension. There is no tricuspid valve prolapse or vegetation. There is no tricuspid valve stenosis. PULMONIC VALVE The pulmonic valve is not well visualized. There is mild pulmonic valvular regurgitation. GREAT VESSELS The aortic root is normal in size. The IVC is normal in size and collapses >50% with inspiration. PERICARDIAL EFFUSION There is no pericardial effusion. There is no pleural effusion. <Conclusion> The left ventricle is normal size. Left ventricle systolic function is low normal. The Ejection Fraction is 50-55%. There is mild hypokinesis in the mid-inferior wall consistent with CAD. Transmitral Doppler flow pattern is abnormal.Grade I-abnormal relaxation pattern. The right ventricle is normal size. The right ventricular systolic function is normal. The left atrium is mildly dilated. The right atrium size is normal. There is mild to moderate aortic regurgitation. Mitral regurgitation is mild. There is mild tricuspid regurgitation. There is mild pulmonic valvular regurgitation.
[2017-10-17] MEDS ORDERED: Sodium Chloride 0.9% 1,000 ML IV SCH (11:30)
--- NOTE | 2017-10-17 11:49 | CP.PCM.PN ---
Subjective - Date & Time of Evaluation Date of Evaluation: 10/17/17 Time of Evaluation: 11:30 - Subjective Subjective: Medical Attending Note: Patient seen at bedside. Patient reports chest pain is 1/10 on pain, denies cough, denies abdominal pain, denies nausea, denies vomitting, denies dysuria, denies constipation. Patient is accompanied by his , sister, and brother at law. Objective - Vital Signs/Intake and Output Vital Signs (last 24 hours): Temp Pulse Resp BP Pulse Ox 98.1 F 57 L 9 L 95/50 L 99 10/17/17 08:00 10/17/17 11:00 10/17/17 11:00 10/17/17 10:55 10/17/17 11:00 Intake and Output: 10/17/17 10/17/17 06:59 18:59 Intake Total 410.6 1254.0 Output Total 750 300 Balance -339.4 954.0 - Medications Medications: Current Medications Aspirin (Ecotrin) 81 mg PO DAILY [facility] Last Admin: 10/17/17 09:54 Dose: 81 mg Clopidogrel Bisulfate (Plavix) 75 mg PO DAILY [facility] Last Admin: 10/17/17 09:54 Dose: 75 mg Sodium Chloride (Sodium Chloride 0.9%) 1,000 mls @ 100 mls/hr IV .Q10H JASON Sodium Chloride (Sodium Chloride 0.9%) 1,000 mls @ 100 mls/hr IV .Q10H JASON Heparin Sodium/Sodium Chloride (Heparin 42352 Units/250ml 1/2 Normal Saline) 25 ,000 units in 250 mls @ 9.651 mls/hr IV .Q24H PRN; Protocol; 12 UNITS/KG/HR PRN Reason: PROTOCOL Metoprolol Succinate (Toprol Xl) 12.5 mg PO DAILY [facility] Last Admin: 10/17/17 09:56 Dose: Not Given Rosuvastatin Calcium (Crestor) 20 mg PO HS [facility] Last Admin: 10/16/17 21:07 Dose: 20 mg - Labs Labs: 10/17/17 05:25 10/17/17 05:25 PT 13.5 SECONDS (9.7-12.2) H 10/16/17 22:06 INR 1.2 10/16/17 22:06 APTT 102 SECONDS (21-34) H* D 10/17/17 05:25 - Constitutional Appears: Non-toxic, No Acute Distress - Head Exam Head Exam: NORMAL INSPECTION - Eye Exam Eye Exam: EOMI - ENT Exam ENT Exam: Mucous Membranes Moist - Respiratory Exam Respiratory Exam: Clear to Ausculation Bilateral, NORMAL BREATHING PATTERN. absent: Rales, Rhonchi, Wheezes - Cardiovascular Exam Cardiovascular Exam: Bradycardia, +S1, +S2 - GI/Abdominal Exam GI & Abdominal Exam: Soft, Normal Bowel Sounds. absent: Distended, Rigid, Tenderness, Rebound - Extremities Exam Extremities Exam: absent: Pedal Edema, Tenderness - Neurological Exam Neurological Exam: Alert, Awake, Oriented x3 Neuro motor strength exam: Left Upper Extremity: 5, Right Upper Extremity: 5, Left Lower Extremity: 5, Right Lower Extremity: 5 - Psychiatric Exam Psychiatric exam: Normal Affect, Normal Mood - Skin Skin Exam: Dry, Intact, Normal Color, Warm Assessment and Plan (1) Hypokalemia Status: Acute (2) NSTEMI (non-ST elevated myocardial infarction) Status: Acute (3) Benign prostatic hyperplasia Status: Chronic (4) HLD (hyperlipidemia) Status: Chronic (5) History of CVA (cerebrovascular accident) Status: Chronic (6) Hypertension Status: Chronic (7) Impaired glucose tolerance Status: Chronic (8) Prophylactic measure Status: Resolved Attending/Attestation - Attestation I have personally seen and examined this patient.: Yes I have fully participated in the care of the patient.: Yes I have reviewed all pertinent clinical information, including history, physical exam and plan: Yes Notes (Text): Assessment/Plan (1) NONSTEMI Chest pain on exertion Assessment and Plan: * Cardiology consult, Dr Maria on board-->help appreciated * ICU consult -->help appreciated * STACEY: 4 (CAD risk factors, Used plavix (instead of aspirin), Severe angina 2 episodes in 24 hours, Positive cardiac marker) * Echocardiogram (10/17/17): * Left ventricle is normal size. * Left ventricle systolic function is low normal. Ejection Fraction: 50-55%. Mild hypokinese in the mid-inferior wall consistent with CAD. Right ventricle is normal size. Right ventricular systolic function is normal. Left atrium is mildly dilated. Right atrium size is normal. Mild to moderate aortic regurgitation. Mitral regurgitation is mild. Mild tricupsid regurgitation. Mild pulmonic valvular regurgitation. * Aspirin 325mg po dose given in ED, Aspirin 81mg PO daily * Lipid panel: within normal; a1c; 5.8 * STACEY: 4 (CAD risk factors, Used plavix (instead of aspirin), Severe angina 2 episodes in 24 hours, Positive cardiac marker) * Placed on Heparin drip and to continue while going to [place] for cath 10/17 * Aspirin 81mg PO daily * Plavix 75mg PO daily * Toprol XL 12.5mg PO daily * UDS: negative * Crestor 20mg POqHS * TSH: 1.62 * Lipid panel: 58, Cholestrol: 102, LDL: 36, HDl: 44 * [id number]: 5.6 * Troponin: 2.87-->4.96-->14-->24.100 (2) Hypertension Assessment and Plan: * Monitor vital signs * Patient given Dose of Toprol Xl in the ED X1 Status: Chronic (3) History of CVA (cerebrovascular accident) Assessment and Plan: * Continue home medication plavix 75mg po qd * Start losartan 50mg po qd; (home medication irbesartan 150mg not carried on hospital formulary) * start rosuvastatin 20mg po qd (home medication atorvastatin 40mg is not carried on hospital formulary) Status: Chronic (4) HLD (hyperlipidemia) Assessment and Plan: * Administer rosuvastatin 20mg po qd (home medication atorvastatin 40mg is not carried here) * Lipid panel ordered: controlled Status: Chronic (5) Impaired glucose tolerance Assessment and Plan: * Monitor Accuchecks Qac and HS * HgbA1C 07/2017: 6.0--->09/02/17: 5.8 Status: Chronic (6) Benign prostatic hyperplasia Assessment and Plan: * Continue home medication tamsulosin 0.4mg po qd Status: Chronic (7) Hypokalemia Assessment and Plan: * Normalized Status: Acute (8) Prophylactic measure Assessment and Plan: * Heparin Drip * NPO after breakfast-->Cardiac cath 10/17/17 Status: Acute Disposition: Patient is going to [place] for cardiac cath with Dr. Maria. Patient will continue Heparin Drip per cardiology.
[2017-10-17] MEDS: Heparin25000 units/250ml 1/2NS 25,000 UNITS/250 ML BAG IV PRN (12:33)
[2017-10-17] MEDS: Sodium Chloride 0.9% 1,000 ML IV SCH ×2 (12:43→21:30)
--- NOTE | 2017-10-17 15:47 | CP.CCUPN ---
<Soo Vazquez - Last Filed: 10/17/17 16:50> CCU Subjective - Physician Review Subjective (Free Text): 10/17/17 16:[address] Zavala Patient seen and examined at bedside. Patient continues to be hypotensive, with chest pain at 1/10. Patient states he feels okay and is waiting for cath placed at [address] Maria, Patient tolerated the procedure well and is to return to [facility] at 9pm. Patient is to transfer to telemetry [facility] upon return CCU Objective - Vital Signs / Intake & Output Vital Signs (Last 4 hours): Vital Signs Temp Pulse Resp BP Pulse Ox 10/17/17 12:00 98.8 F 64 9 L 100 10/17/17 11:55 62 14 101/53 L 100 Intake and Output (Last 8hrs): Intake & Output 10/17/17 10/17/17 10/17/17 06:59 14:59 22:59 Intake Total 306.2 1358.8 Output Total 250 300 Balance 56.2 1058.8 Weight 177 lb 4.8 oz Intake: IV 211 Intake, IV Amount 95.2 1158.8 Left Proximal Port 95.2 10.8 Antecubital Right Forearm 48.0 Right Forearm - Y-port 1100 Oral 200 Output: Urine 250 300 Urine, Voided 250 300 - Physical Exam Head: Positive for: Atraumatic, Normocephalic Extroacular Muscles: Positive for: EOMI Conjunctiva: Positive for: Normal Respiratory/Chest: Positive for: Clear to Auscultation. Negative for: Respiratory Distress Cardiovascular: Positive for: Normal S1, S2, Bradycardic - Medications Active Medications: Active Medications Generic Name Dose Route Start Last Admin Trade Name Freq PRN Reason Stop Dose Admin Aspirin 81 mg 10/17/17 10:00 10/17/17 09:54 Ecotrin PO 81 mg DAILY JASON Administration Clopidogrel Bisulfate 75 mg 10/17/17 10:00 10/17/17 09:54 Plavix PO 75 mg DAILY JASON Administration Sodium Chloride 1,000 mls @ 100 mls/hr 10/17/17 11:30 10/17/17 12:40 Sodium Chloride 0.9% IV 100 mls/hr .Q10H JASON Administration Sodium Chloride 1,000 mls @ 100 mls/hr 10/17/17 11:30 10/17/17 12:43 Sodium Chloride 0.9% IV Not Given .Q10H JASON Heparin Sodium/Sodium Chloride 25,000 units in 250 mls @ 9.651 mls/hr 12:00 10/17/17 12:33 Heparin 43651 Units/250ml 1/2 Normal Saline IV 12 units/kg/hr .Q24H PRN 9.651 mls/hr PROTOCOL Administration Protocol 12 UNITS/KG/HR Metoprolol Succinate 12.5 mg 10/17/17 10:00 10/17/17 09:56 Toprol Xl PO Not Given DAILY JASON Rosuvastatin Calcium 20 mg 10/16/17 22:00 10/16/17 21:07 Crestor PO 20 mg HS JASON Administration - Patient Studies Lab Studies: Lab Studies 10/17/17 10/17/17 10/17/17 Range/Units 05:25 05:25 05:25 WBC 7.4 (4.8-10.8) K/uL RBC 4.15 L (4.40-5.90) Mil/uL Hgb 13.5 (12.0-18.0) g/dL Hct 38.7 (35.0-51.0) % MCV 93.2 (80.0-94.0) fL MCH 32.5 H (27.0-31.0) pg MCHC 34.9 (33.0-37.0) g/dL RDW 13.9 (11.5-14.5) % Plt Count 144 (130-400) K/uL MPV 9.6 (7.2-11.7) fL Neut % (Auto) 68.6 (50.0-75.0) % Lymph % (Auto) 18.6 L (20.0-40.0) % Esmeralda % (Auto) 10.2 H (0.0-10.0) % Eos % (Auto) 1.0 (0.0-4.0) % Baso % (Auto) 1.6 (0.0-2.0) % Neut # 5.1 (1.8-7.0) K/uL Lymph # 1.4 (1.0-4.3) K/uL Esmeralda # 0.8 (0.0-0.8) K/uL Eos # 0.1 (0.0-0.7) K/uL Baso # 0.1 (0.0-0.2) K/uL PT (9.7-12.2) SECONDS INR APTT 102 H* D (21-34) SECONDS Sodium 134 (132-148) mmol/L Potassium 3.6 (3.6-5.2) mmol/L Chloride 101 (98-107) mmol/L Carbon Dioxide 29 (22-30) mmol/L Anion Gap 9 L (10-20) BUN 13 (9-20) mg/dL Creatinine 0.8 (0.8-1.5) mg/dL Est GFR ( Amer) > 60 Est GFR (Non-Af Amer) > 60 Random Glucose 115 H (75-110) mg/dL Hemoglobin A1c (4.2-6.5) % Calcium 8.3 L (8.6-10.4) mg/dl Phosphorus 3.4 (2.5-4.5) mg/dL Magnesium 1.8 (1.6-2.3) mg/dL Total Bilirubin 1.6 H (0.2-1.3) mg/dL AST 149 H D (17-59) U/L ALT 27 (21-72) U/L Alkaline Phosphatase 63 (38-126) U/L Total Creatine Kinase 796 H (55-170) U/L CK-MB (Mass) 57.6 H (0.0-3.38) ng/mL Troponin I 24.1000 H* (0.00-0.120) ng/mL Total Protein 5.6 L (6.3-8.3) g/dL Albumin 3.4 L (3.5-5.0) g/dL Globulin 2.2 (2.2-3.9) gm/dL Albumin/Globulin Ratio 1.5 (1.0-2.1) Triglycerides (0-149) mg/dL Cholesterol (0-199) mg/dL LDL Cholesterol Direct (0-129) mg/dL HDL Cholesterol (30-70) mg/dL TSH 3rd Generation (0.46-4.68) mIU/L Urine Opiates Screen (NEGATIVE) Urine Methadone Screen (NEGATIVE) Ur Barbiturates Screen (NEGATIVE) Ur Phencyclidine Scrn (NEGATIVE) Ur Amphetamines Screen (NEGATIVE) U Benzodiazepines Scrn (NEGATIVE) U Oth Cocaine Metabols (NEGATIVE) U Cannabinoids Screen (NEGATIVE) Influenza Typ A,B (EIA) (NEGATIVE) 10/16/17 10/16/17 10/16/17 Range/Units 22:06 22:06 19:17 WBC (4.8-10.8) K/uL RBC (4.40-5.90) Mil/uL Hgb (12.0-18.0) g/dL Hct (35.0-51.0) % MCV (80.0-94.0) fL MCH (27.0-31.0) pg MCHC (33.0-37.0) g/dL RDW (11.5-14.5) % Plt Count (130-400) K/uL MPV (7.2-11.7) fL Neut % (Auto) (50.0-75.0) % Lymph % (Auto) (20.0-40.0) % Esmeralda % (Auto) (0.0-10.0) % Eos % (Auto) (0.0-4.0) % Baso % (Auto) (0.0-2.0) % Neut # (1.8-7.0) K/uL Lymph # (1.0-4.3) K/uL Esmeralda # (0.0-0.8) K/uL Eos # (0.0-0.7) K/uL Baso # (0.0-0.2) K/uL PT 13.5 H (9.7-12.2) SECONDS INR 1.2 APTT 76 H D (21-34) SECONDS Sodium (132-148) mmol/L Potassium (3.6-5.2) mmol/L Chloride (98-107) mmol/L Carbon Dioxide (22-30) mmol/L Anion Gap (10-20) BUN (9-20) mg/dL Creatinine (0.8-1.5) mg/dL Est GFR ( Amer) Est GFR (Non-Af Amer) Random Glucose (75-110) mg/dL Hemoglobin A1c (4.2-6.5) % Calcium (8.6-10.4) mg/dl Phosphorus (2.5-4.5) mg/dL Magnesium (1.6-2.3) mg/dL Total Bilirubin (0.2-1.3) mg/dL AST (17-59) U/L ALT (21-72) U/L Alkaline Phosphatase (38-126) U/L Total Creatine Kinase 776 H (55-170) U/L CK-MB (Mass) 70.0 H (0.0-3.38) ng/mL Troponin I 14.0000 H* (0.00-0.120) ng/mL Total Protein (6.3-8.3) g/dL Albumin (3.5-5.0) g/dL Globulin (2.2-3.9) gm/dL Albumin/Globulin Ratio (1.0-2.1) Triglycerides (0-149) mg/dL Cholesterol (0-199) mg/dL LDL Cholesterol Direct (0-129) mg/dL HDL Cholesterol (30-70) mg/dL TSH 3rd Generation (0.46-4.68) mIU/L Urine Opiates Screen Negative (NEGATIVE) Urine Methadone Screen Negative (NEGATIVE) Ur Barbiturates Screen Negative (NEGATIVE) Ur Phencyclidine Scrn Negative (NEGATIVE) Ur Amphetamines Screen Negative (NEGATIVE) U Benzodiazepines Scrn Negative (NEGATIVE) U Oth Cocaine Metabols Negative (NEGATIVE) U Cannabinoids Screen Negative (NEGATIVE) Influenza Typ A,B (EIA) (NEGATIVE) 10/16/17 10/16/17 10/16/17 Range/Units 16:17 16:17 16:17 WBC (4.8-10.8) K/uL RBC (4.40-5.90) Mil/uL Hgb (12.0-18.0) g/dL Hct (35.0-51.0) % MCV (80.0-94.0) fL MCH (27.0-31.0) pg MCHC (33.0-37.0) g/dL RDW (11.5-14.5) % Plt Count (130-400) K/uL MPV (7.2-11.7) fL Neut % (Auto) (50.0-75.0) % Lymph % (Auto) (20.0-40.0) % Esmeralda % (Auto) (0.0-10.0) % Eos % (Auto) (0.0-4.0) % Baso % (Auto) (0.0-2.0) % Neut # (1.8-7.0) K/uL Lymph # (1.0-4.3) K/uL Esmeralda # (0.0-0.8) K/uL Eos # (0.0-0.7) K/uL Baso # (0.0-0.2) K/uL PT (9.7-12.2) SECONDS INR APTT (21-34) SECONDS Sodium (132-148) mmol/L Potassium (3.6-5.2) mmol/L Chloride (98-107) mmol/L Carbon Dioxide (22-30) mmol/L Anion Gap (10-20) BUN (9-20) mg/dL Creatinine (0.8-1.5) mg/dL Est GFR ( Amer) Est GFR (Non-Af Amer) Random Glucose (75-110) mg/dL Hemoglobin A1c 5.6 (4.2-6.5) % Calcium (8.6-10.4) mg/dl Phosphorus (2.5-4.5) mg/dL Magnesium (1.6-2.3) mg/dL Total Bilirubin (0.2-1.3) mg/dL AST (17-59) U/L ALT (21-72) U/L Alkaline Phosphatase (38-126) U/L Total Creatine Kinase 456 H (55-170) U/L CK-MB (Mass) 48.4 H (0.0-3.38) ng/mL Troponin I 4.9600 H* (0.00-0.120) ng/mL Total Protein (6.3-8.3) g/dL Albumin (3.5-5.0) g/dL Globulin (2.2-3.9) gm/dL Albumin/Globulin Ratio (1.0-2.1) Triglycerides 58 (0-149) mg/dL Cholesterol 102 (0-199) mg/dL LDL Cholesterol Direct 36 (0-129) mg/dL HDL Cholesterol 44 (30-70) mg/dL TSH 3rd Generation 1.62 (0.46-4.68) mIU/L Urine Opiates Screen (NEGATIVE) Urine Methadone Screen (NEGATIVE) Ur Barbiturates Screen (NEGATIVE) Ur Phencyclidine Scrn (NEGATIVE) Ur Amphetamines Screen (NEGATIVE) U Benzodiazepines Scrn (NEGATIVE) U Oth Cocaine Metabols (NEGATIVE) U Cannabinoids Screen (NEGATIVE) Influenza Typ A,B (EIA) Negative for flu a/b (NEGATIVE) Laboratory Results - last 24 hr 10/16/17 10/16/17 10/16/17 16:17 16:17 16:17 WBC RBC Hgb Hct MCV MCH MCHC RDW Plt Count MPV Neut % (Auto) Lymph % (Auto) Esmeralda % (Auto) Eos % (Auto) Baso % (Auto) Neut # Lymph # Esmeralda # Eos # Baso # PT INR APTT Sodium Potassium Chloride Carbon Dioxide Anion Gap BUN Creatinine Est GFR ( Amer) Est GFR (Non-Af Amer) Random Glucose Hemoglobin A1c 5.6 Calcium Phosphorus Magnesium Total Bilirubin AST ALT Alkaline Phosphatase Total Creatine Kinase 456 H CK-MB (Mass) 48.4 H Troponin I 4.9600 H* Total Protein Albumin Globulin Albumin/Globulin Ratio Triglycerides 58 Cholesterol 102 LDL Cholesterol Direct 36 HDL Cholesterol 44 TSH 3rd Generation 1.62 Urine Opiates Screen Urine Methadone Screen Ur Barbiturates Screen Ur Phencyclidine Scrn Ur Amphetamines Screen U Benzodiazepines Scrn U Oth Cocaine Metabols U Cannabinoids Screen Influenza Typ A,B (EIA) Negative for flu a/b 10/16/17 10/16/17 10/16/17 19:17 22:06 22:06 WBC RBC Hgb Hct MCV MCH MCHC RDW Plt Count MPV Neut % (Auto) Lymph % (Auto) Esmeralda % (Auto) Eos % (Auto) Baso % (Auto) Neut # Lymph # Esmeralda # Eos # Baso # PT 13.5 H INR 1.2 APTT 76 H D Sodium Potassium Chloride Carbon Dioxide Anion Gap BUN Creatinine Est GFR ( Amer) Est GFR (Non-Af Amer) Random Glucose Hemoglobin A1c Calcium Phosphorus Magnesium Total Bilirubin AST ALT Alkaline Phosphatase Total Creatine Kinase 776 H CK-MB (Mass) 70.0 H Troponin I 14.0000 H* Total Protein Albumin Globulin Albumin/Globulin Ratio Triglycerides Cholesterol LDL Cholesterol Direct HDL Cholesterol TSH 3rd Generation Urine Opiates Screen Negative Urine Methadone Screen Negative Ur Barbiturates Screen Negative Ur Phencyclidine Scrn Negative Ur Amphetamines Screen Negative U Benzodiazepines Scrn Negative U Oth Cocaine Metabols Negative U Cannabinoids Screen Negative Influenza Typ A,B (EIA) 10/17/17 10/17/17 10/17/17 05:25 05:25 05:25 WBC 7.4 RBC 4.15 L Hgb 13.5 Hct 38.7 MCV 93.2 MCH 32.5 H MCHC 34.9 RDW 13.9 Plt Count 144 MPV 9.6 Neut % (Auto) 68.6 Lymph % (Auto) 18.6 L Esmeralda % (Auto) 10.2 H Eos % (Auto) 1.0 Baso % (Auto) 1.6 Neut # 5.1 Lymph # 1.4 Esmeralda # 0.8 Eos # 0.1 Baso # 0.1 PT INR APTT 102 H* D Sodium 134 Potassium 3.6 Chloride 101 Carbon Dioxide 29 Anion Gap 9 L BUN 13 Creatinine 0.8 Est GFR ( Amer) > 60 Est GFR (Non-Af Amer) > 60 Random Glucose 115 H Hemoglobin A1c Calcium 8.3 L Phosphorus 3.4 Magnesium 1.8 Total Bilirubin 1.6 H AST 149 H D ALT 27 Alkaline Phosphatase 63 Total Creatine Kinase 796 H CK-MB (Mass) 57.6 H Troponin I 24.1000 H* Total Protein 5.6 L Albumin 3.4 L Globulin 2.2 Albumin/Globulin Ratio 1.5 Triglycerides Cholesterol LDL Cholesterol Direct HDL Cholesterol TSH 3rd Generation Urine Opiates Screen Urine Methadone Screen Ur Barbiturates Screen Ur Phencyclidine Scrn Ur Amphetamines Screen U Benzodiazepines Scrn U Oth Cocaine Metabols U Cannabinoids Screen Influenza Typ A,B (EIA) EKG/Cardiology Studies: Cardiology / EKG Studies 10/16/17 15:34 EKG [ELECTROCARDIOGRAM] Stat Comment: Mode Of Transportation: Reason For Exam: chest pain 10/16/17 21:00 EKG [ELECTROCARDIOGRAM] Routine Comment: Mode Of Transportation: Reason For Exam: with akash panel 10/17/17 03:00 EKG [ELECTROCARDIOGRAM] Q6H Comment: Mode Of Transportation: Reason For Exam: chest pain 10/17/17 09:00 EKG [ELECTROCARDIOGRAM] Q6H Comment: Mode Of Transportation: Reason For Exam: chest pain 10/17/17 15:00 EKG [ELECTROCARDIOGRAM] Q6H Comment: Mode Of Transportation: Reason For Exam: chest pain Critical Care Progress Note - Nutrition Nutrition: Nutrition Category Date Time Status Heart Healthy Diet [DIET] Diets 10/17/17 Breakfast Active Assessment/Plan - Assessment and Plan (Free Text) Assessment: Cardio: CAD s/p 2 LENA placement Hx hypertension, stable angina Patient is bradycardic and hypotensive, with NSTEMI - 10/16 EKG shows t wave inversion in inferior leads suggesting, inferior infarct 10/17: Troponins 14.0 and 24.1 10/17: Total Creatine kinase 796 and 776, CK-MB 57.6 and 70.0 10/17 Echocardiogram: Left ventricular systolic function is low normal with EF of 50-55%. Mild hypokinesis and mid-inferior wall consistent with LAD. Dr. Maria consulted and plan for cardiac catheterization at 2pm today in [place] Patient transferred to [place] for cath procedure at 2pm 10/[address] Maria: LCx large sized vessel mid 99% stenosis, proximal left PDA 90%, 2 LENA placed. 10/[address] Maria: Patient to return to this hospital to telemetry floor. Aspirin 81 mg PO daily Heparin Drip Toprol XL 12.5 mg PO daily Crestor 20 mg PO qHs NS 0.9% 100 mls/hr Q10H Plavix 75 mg PO daily Pulmonology: NC @ 4L Endocrine: TSH: 1.62 Lipid Panel: 58, cholesterol: 102, LDL: 36, HDL: 44: controlled A1C: 5.6 - monitor accuchecks ACHS Prophylaxis: Heparin drip Made NPO after breakfast Heart healthy diet discussed with Dr. Branden Vazquez DO PGY1 - Date & Time Date: 10/17/17 Time: 16:52 <Branden Zavala - Last Filed: 10/20/17 11:16> CCU Objective - Patient Studies Lab Studies: Microbiology Studies 10/18/17 18:00 MRSA Culture - Final Naris MRSA NOT DETECTED Critical Care Progress Note - Nutrition Nutrition: Nutrition Category Date Time Status Heart Healthy Diet [DIET] Diets 10/17/17 Breakfast Active Assessment/Plan - Assessment and Plan (Free Text) Plan: Patient seen and examined at bedside with above resident. Above management reviewed and discussed with nursing staff.
[2017-10-18] MEDS ORDERED: Sodium Chloride 0.9% 1,000 ML IV ONE (01:13)
[2017-10-18] MEDS: Heparin25000 units/250ml 1/2NS 25,000 UNITS/250 ML BAG IV PRN (03:00)
[2017-10-18 06:39] LABS: INR 1.2
[2017-10-18 06:43] LABS: BASO % 0.5 % (0.0-2.0); EOS # 0.1 K/uL (0.0-0.7); EOS % 1.4 % (0.0-4.0); HEMATOCRIT 34.5 % (35.0-51.0); LYMPH # 1.1 K/uL (1.0-4.3); LYMPH % 15.2 % (20.0-40.0); MEAN CELL VOLUME 93.6 fL (80.0-94.0); MEAN CORPUSCULAR HEMOGLOBIN 33.3 pg (27.0-31.0); MEAN CORPUSCULAR HGB CONC 35.5 g/dL (33.0-37.0); MEAN PLATELET VOLUME 9.8 fL (7.2-11.7); MONO # 0.7 K/uL (0.0-0.8); MONO % 9.4 % (0.0-10.0); RED CELL DISTRIBUTION WIDTH 13.7 % (11.5-14.5); WHITE BLOOD COUNT 7.2 K/uL (4.8-10.8)
[2017-10-18 07:07] LABS: ALKALINE PHOSPHATASE 55 U/L (38-126); ALT/SGPT 35 U/L (21-72); AST/SGOT 103 U/L (17-59); BILIRUBIN,TOTAL 0.9 mg/dL (0.2-1.3); BLOOD UREA NITROGEN 15 mg/dL (9-20); CALCIUM 7.6 mg/dl (8.6-10.4); CARBON DIOXIDE 26 mmol/L (22-30); CHLORIDE 104 mmol/L (98-107); GFR AFRICAN-AMERICAN > 60; GLUCOSE,RANDOM 92 mg/dL (75-110); POTASSIUM 3.6 mmol/L (3.6-5.2); SODIUM 134 mmol/L (132-148); TOTAL PROTEIN 6.1 g/dL (6.3-8.3)
[2017-10-18] MEDS: Sodium Chloride 0.9% 1,000 ML IV SCH ×2 (08:35→17:30)
[2017-10-18] MEDS: Metoprolol Succinate 12.5 mg XL PO SCH ×2 (09:49→13:26)
[2017-10-18 12:28] VITALS: RESP 20
--- NOTE | 2017-10-18 12:36 | CP.PCM.PN ---
Subjective - Date & Time of Evaluation Date of Evaluation: 10/18/17 Time of Evaluation: 12:30 - Subjective Subjective: Medical Attending Note: Patient seen and examined with and spoken with sister, Nereyda over the phone. Patient reports had chest pain this morning, given dose of Morphine 1mg IVX1, and chest pain improved. Patient reports had [place] prior to coming back had a fever: 100.3F. He reports he received Tylenol and felt better. Patient denies cough, denies abdominal pain, denies nausea, denies constipation, denies diarrhea, denies numbness, and denies tingling. Objective - Vital Signs/Intake and Output Vital Signs (last 24 hours): Temp Pulse Resp BP Pulse Ox 99.6 F 73 20 112/57 L 99 10/18/17 12:00 10/18/17 12:00 10/18/17 12:00 10/18/17 12:00 10/18/17 12:00 Intake and Output: 10/18/17 10/18/17 06:59 18:59 Intake Total 1770 2434 Output Total 0 650 Balance 1770 1784 - Medications Medications: Current Medications Aspirin (Ecotrin) 81 mg PO DAILY [facility] Last Admin: 10/18/17 09:47 Dose: 81 mg Clopidogrel Bisulfate (Plavix) 75 mg PO DAILY [facility] Last Admin: 10/18/17 09:47 Dose: 75 mg Sodium Chloride (Sodium Chloride 0.9%) 1,000 mls @ 100 mls/hr IV .Q10H [facility] Last Admin: 10/18/17 08:35 Dose: 100 mls/hr Heparin Sodium/Sodium Chloride (Heparin 32667 Units/250ml 1/2 Normal Saline) 25 ,000 units in 250 mls @ 9.651 mls/hr IV .Q24H PRN; Protocol; 12 UNITS/KG/HR PRN Reason: PROTOCOL Last Titration: 10/18/17 12:20 Dose: 0 units/kg/hr, 0 mls/hr Metoprolol Succinate (Toprol Xl) 12.5 mg PO DAILY [facility] Last Admin: 10/18/17 09:49 Dose: Not Given Morphine Sulfate (Morphine) 2 mg IVP Q4 PRN PRN Reason: Pain, moderate (4-7) Last Admin: 10/18/17 08:34 Dose: 2 mg Rosuvastatin Calcium (Crestor) 20 mg PO [facility] Last Admin: 10/17/17 23:49 Dose: 20 mg - Labs Labs: 10/18/17 06:28 10/18/17 06:28 PT 13.9 SECONDS (9.7-12.2) H 10/18/17 06:28 INR 1.2 10/18/17 06:28 APTT 47 SECONDS (21-34) H D 10/18/17 06:28 - Constitutional Appears: Non-toxic, No Acute Distress - Head Exam Head Exam: NORMAL INSPECTION - Eye Exam Eye Exam: EOMI - ENT Exam ENT Exam: Mucous Membranes Moist - Respiratory Exam Respiratory Exam: Clear to Ausculation Bilateral, NORMAL BREATHING PATTERN. absent: Rales, Rhonchi - Cardiovascular Exam Cardiovascular Exam: REGULAR RHYTHM, +S1, +S2 - GI/Abdominal Exam GI & Abdominal Exam: Soft, Normal Bowel Sounds. absent: Distended, Firm, Guarding, Rigid, Tenderness, Rebound - Extremities Exam Extremities Exam: absent: Pedal Edema, Tenderness Additional comments: right upper extremity: bandage, clean, dry - Neurological Exam Neurological Exam: Alert, Awake, Oriented x3 Neuro motor strength exam: Left Upper Extremity: 5, Right Upper Extremity: 5, Left Lower Extremity: 5, Right Lower Extremity: 5 - Psychiatric Exam Psychiatric exam: Normal Affect, Normal Mood - Skin Skin Exam: Dry, Normal Color, Warm Assessment and Plan (1) Hypokalemia Status: Acute (2) NSTEMI (non-ST elevated myocardial infarction) Status: Acute (3) Benign prostatic hyperplasia Status: Chronic (4) HLD (hyperlipidemia) Status: Chronic (5) History of CVA (cerebrovascular accident) Status: Chronic (6) Hypertension Status: Chronic (7) Impaired glucose tolerance Status: Chronic Attending/Attestation - Attestation I have personally seen and examined this patient.: Yes I have fully participated in the care of the patient.: Yes I have reviewed all pertinent clinical information, including history, physical exam and plan: Yes
--- NOTE | 2017-10-18 13:06 | CP.PCM.PN ---
Subjective - Date & Time of Evaluation Date of Evaluation: 10/18/17 Time of Evaluation: 12:35 - Subjective Subjective: Medical Attending Note Patient seen and examined with patient's and sister at bedside. Patient seen and examined with and spoken with sister, Nereyda over the phone. Patient reports had chest pain this morning, given dose of Morphine 1mg IVX1, and chest pain improved. Patient reports had [place] prior to coming back had a fever: 100.3F. He reports he received Tylenol and felt better. Patient denies cough, denies abdominal pain, denies nausea, denies constipation, denies diarrhea, denies numbness, and denies tingling. Patient had an episode of anginal pain, which improved after Morphine 2mg IVX21. Heparin drip discontinued. Patient start on IV fluids. Discussed with patient's cardiology, patient to resume Toprol 12.5mg PO X1, and start Ranexa. Objective - Vital Signs/Intake and Output Vital Signs (last 24 hours): Temp Pulse Resp BP Pulse Ox 99.6 F 73 20 112/57 L 99 10/18/17 12:00 10/18/17 12:00 10/18/17 12:00 10/18/17 12:00 10/18/17 12:00 Intake and Output: 10/18/17 10/18/17 06:59 18:59 Intake Total 1770 2434 Output Total 0 650 Balance 1770 1784 - Medications Medications: Current Medications Aspirin (Ecotrin) 81 mg PO DAILY [facility] Last Admin: 10/18/17 09:47 Dose: 81 mg Clopidogrel Bisulfate (Plavix) 75 mg PO DAILY [facility] Last Admin: 10/18/17 09:47 Dose: 75 mg Sodium Chloride (Sodium Chloride 0.9%) 1,000 mls @ 100 mls/hr IV .Q10H [facility] Last Admin: 10/18/17 08:35 Dose: 100 mls/hr Metoprolol Succinate (Toprol Xl) 12.5 mg PO DAILY [facility] Last Admin: 10/18/17 09:49 Dose: Not Given Morphine Sulfate (Morphine) 2 mg IVP Q4 PRN PRN Reason: Pain, moderate (4-7) Last Admin: 10/18/17 08:34 Dose: 2 mg Ranolazine (Ranexa) 500 mg PO BID [facility] Rosuvastatin Calcium (Crestor) 20 mg PO HS [facility] Last Admin: 10/17/17 23:49 Dose: 20 mg - Labs Labs: 10/18/17 06:28 10/18/17 06:28 PT 13.9 SECONDS (9.7-12.2) H 10/18/17 06:28 INR 1.2 10/18/17 06:28 APTT 47 SECONDS (21-34) H D 10/18/17 06:28 - Constitutional Appears: Non-toxic, No Acute Distress - Head Exam Head Exam: NORMAL INSPECTION - Eye Exam Eye Exam: EOMI - ENT Exam ENT Exam: Mucous Membranes Moist - Respiratory Exam Respiratory Exam: Clear to Ausculation Bilateral, NORMAL BREATHING PATTERN. absent: Rales, Rhonchi, Wheezes - Cardiovascular Exam Cardiovascular Exam: REGULAR RHYTHM, +S1, +S2 - GI/Abdominal Exam GI & Abdominal Exam: Soft, Normal Bowel Sounds. absent: Distended, Firm, Guarding, Rigid, Tenderness, Rebound - Extremities Exam Extremities Exam: Normal Capillary Refill. absent: Pedal Edema, Tenderness Additional comments: right extremity upper: bandage is clean dry intact - Back Exam Back Exam: absent: CVA tenderness (L), CVA tenderness (R) - Neurological Exam Neurological Exam: Alert, Awake, Oriented x3 Neuro motor strength exam: Left Upper Extremity: 5, Right Upper Extremity: 5, Left Lower Extremity: 5, Right Lower Extremity: 5 - Psychiatric Exam Psychiatric exam: Normal Affect, Normal Mood - Skin Skin Exam: Dry, Normal Color, Warm Assessment and Plan (1) Hypokalemia Status: Acute (2) NSTEMI (non-ST elevated myocardial infarction) Status: Acute (3) Benign prostatic hyperplasia Status: Chronic (4) HLD (hyperlipidemia) Status: Chronic (5) History of CVA (cerebrovascular accident) Status: Chronic (6) Hypertension Status: Chronic (7) Impaired glucose tolerance Status: Chronic Attending/Attestation - Attestation I have personally seen and examined this patient.: Yes I have fully participated in the care of the patient.: Yes I have reviewed all pertinent clinical information, including history, physical exam and plan: Yes Notes (Text): Assessment/Plan (1) NONSTEMI Coronary Artery Disease with Drug Eluting Stents with POD 1 (2 stents) Chest pain on exertion Assessment and Plan: * Cardiology consult, Dr Maria on board-->help appreciated * ICU consult -->help appreciated * STACEY: 4 (CAD risk factors, Used plavix (instead of aspirin), Severe angina 2 episodes in 24 hours, Positive cardiac marker) * Echocardiogram (10/17/17): * Left ventricle is normal size. * Left ventricle systolic function is low normal. Ejection Fraction: 50-55%. * Mild hypokineses in the mid-inferior wall consistent with CAD. Right ventricle is normal size. Right ventricular systolic function is normal. Left atrium is mildly dilated. Right atrium size is normal. Mild to moderate aortic regurgitation. Mitral regurgitation is mild. Mild tricupsid regurgitation. Mild pulmonic valvular regurgitation. * Lipid panel: within normal: a1c; 5.8 * STACEY: 4 (CAD risk factors, Used plavix (instead of aspirin), Severe angina 2 episodes in 24 hours, Positive cardiac marker) * Cardiac cath 10/17/17: Left dominant system , left circumflex-large size vessel mid 99% stenosis, proximal left PDA 90% fixed both 2 LENA * Aspirin 81mg PO daily * Plavix 75mg PO daily * Toprol XL 12.5mg PO daily * Start Ranexa 500mg PO BID * Crestor 20mg POqHS * Held losartan 50mg po qd; (home medication irbesartaan 150mg not carried on hospital formulary) secondary to hypotension * UDS: negative * Crestor 20mg POqHS * TSH: 1.62 * Lipid panel: 58, Cholestrol: 102, LDL: 36, HDl: 44 * [id number]: 5.6 * Troponin: 2.87-->4.96-->14-->24.100; Order for CONOR today (2) Hypertension Assessment and Plan: * Toprol XL 12.5mg PO daily Status: Chronic (3) History of CVA (cerebrovascular accident) Assessment and Plan: * Continue home medication plavix 75mg po qdaily * held losartan 50mg po qd; (home medication irbesartaan 150mg not carried on hospital formulary) secondary to hypotension * start rosuvastatin 20mg po qHS (home medication atorvastatin 40mg is not carried on hospital formulary) Status: Chronic (4) HLD (hyperlipidemia) Assessment and Plan: * Administer rosuvastatin 20mg po qd (home medication atorvastatin 40mg is not carried here) * Lipid panel ordered: controlled Status: Chronic (5) Impaired glucose tolerance Assessment and Plan: * Monitor Accuchecks Qac and HS * HgbA1C 07/2017: 6.0--->09/02/17: 5.8 Status: Chronic (6) Benign prostatic hyperplasia Assessment and Plan: * Continue home medication tamsulosin 0.4mg po qd Status: Chronic (7) Hypokalemia Assessment and Plan: * Normalized Status: Acute (8) Prophylactic measure Assessment and Plan: * Off Heparin drip today-->start heparin DVT ppx tomorrow * heart Healthy diet Status: Acute Disposition: s/p POD 1 cardiac cath with LENA 2 stents. start Ranexa today. Discussed with cardiology. Continue to monitor post-NY in light of angina and hypotensive episode
[2017-10-18 14:13] LABS: TROPONIN I 18.7 ng/mL (0.00-0.120)
[2017-10-18] MEDS: Ranolazine 500 mg Extended Release Tablets PO SCH (17:29)
--- NOTE | 2017-10-18 18:41 | CARD ---
APPROVED REPORT EKG Measurement Heart [id number] <Conclusion> Sinus bradycardia T wave abnormality, consider inferior ischemia Abnormal ECG
[2017-10-19 08:36] LABS: BASO % 0.4 % (0.0-2.0); EOS # 0.1 K/uL (0.0-0.7); EOS % 1.6 % (0.0-4.0); LYMPH # 1.1 K/uL (1.0-4.3); LYMPH % 16.5 % (20.0-40.0); MEAN CELL VOLUME 93.4 fL (80.0-94.0); MEAN CORPUSCULAR HEMOGLOBIN 33.2 pg (27.0-31.0); MEAN CORPUSCULAR HGB CONC 35.6 g/dL (33.0-37.0); MONO # 0.7 K/uL (0.0-0.8); MONO % 9.8 % (0.0-10.0); RED CELL DISTRIBUTION WIDTH 13.6 % (11.5-14.5); WHITE BLOOD COUNT 6.6 K/uL (4.8-10.8)
[2017-10-19 08:45] VITALS: PULSE 71; TEMP 97.6; O2SAT 98
[2017-10-19 09:18] LABS: BLOOD UREA NITROGEN 12 mg/dL (9-20); CALCIUM 7.7 mg/dl (8.6-10.4); CARBON DIOXIDE 27 mmol/L (22-30); CHLORIDE 106 mmol/L (98-107); GFR AFRICAN-AMERICAN > 60; GLUCOSE,RANDOM 102 mg/dL (75-110); MAGNESIUM 1.7 mg/dL (1.6-2.3); POTASSIUM 3.4 mmol/L (3.6-5.2); SODIUM 138 mmol/L (132-148); TOTAL PROTEIN 5.2 g/dL (6.3-8.3)
[2017-10-19 09:19] LABS: ALB/GLOB RATIO 1.3 (1.0-2.1); ALKALINE PHOSPHATASE 59 U/L (38-126); ALT/SGPT 28 U/L (21-72); AST/SGOT 66 U/L (17-59); BILIRUBIN,TOTAL 0.9 mg/dL (0.2-1.3)
[2017-10-19] MEDS: Ranolazine 500 mg Extended Release Tablets PO SCH (10:24)
[2017-10-19] MEDS: Metoprolol Succinate 12.5 mg XL PO SCH ×2 (10:24→10:28)
[2017-10-19 10:29] VITALS: BP 94/55
[2017-10-19] MEDS ORDERED: Potassium Chloride 20 mEq ER Tab PO STA ×2 (10:39→11:55)
--- NOTE | 2017-10-19 12:47 | CP.PCM.PN ---
Subjective - Date & Time of Evaluation Date of Evaluation: 10/19/17 Time of Evaluation: 12:45 - Subjective Subjective: feeling fine mild pleuritic chest pain constant in nature walked around the unit with no complaints Objective - Vital Signs/Intake and Output Vital Signs (last 24 hours): Temp Pulse Resp BP Pulse Ox 97.6 F 71 20 94/55 L 98 10/19/17 07:00 10/19/17 07:00 10/19/17 07:00 10/19/17 10:28 10/19/17 07:00 Intake and Output: 10/19/17 10/19/17 06:59 18:59 Output Total 300 Balance -300 - Medications Medications: Current Medications Aspirin (Ecotrin) 81 mg PO DAILY [facility] Last Admin: 10/19/17 10:24 Dose: 81 mg Clopidogrel Bisulfate (Plavix) 75 mg PO DAILY [facility] Last Admin: 10/19/17 10:24 Dose: 75 mg Metoprolol Succinate (Toprol Xl) 12.5 mg PO DAILY [facility] Last Admin: 10/19/17 10:28 Dose: Not Given Morphine Sulfate (Morphine) 1 mg IVP Q4 PRN PRN Reason: Pain, moderate (4-7) Ranolazine (Ranexa) 500 mg PO BID [facility] Last Admin: 10/19/17 10:24 Dose: 500 mg Rosuvastatin Calcium (Crestor) 20 mg PO HS [facility] Last Admin: 10/18/17 21:15 Dose: 20 mg - Labs Labs: 10/19/17 08:22 10/19/17 08:22 PT 13.9 SECONDS (9.7-12.2) H 10/18/17 06:28 INR 1.2 10/18/17 06:28 APTT 47 SECONDS (21-34) H D 10/18/17 06:28 - Constitutional Appears: Well - Head Exam Head Exam: ATRAUMATIC, NORMAL INSPECTION, NORMOCEPHALIC - Eye Exam Eye Exam: EOMI, Normal appearance, PERRL Pupil Exam: NORMAL ACCOMODATION, PERRL - ENT Exam ENT Exam: Mucous Membranes Moist, Normal Exam - Neck Exam Neck Exam: Full ROM, Normal Inspection. absent: Lymphadenopathy - Respiratory Exam Respiratory Exam: Clear to Ausculation Bilateral, NORMAL BREATHING PATTERN - Cardiovascular Exam Cardiovascular Exam: REGULAR RHYTHM, +S1, +S2. absent: Murmur - GI/Abdominal Exam GI & Abdominal Exam: Soft, Normal Bowel Sounds. absent: Tenderness - Exam Bimanual exam: NORMAL BIMANUAL EXAM - Extremities Exam Extremities Exam: Full ROM, Normal Capillary Refill, Normal Inspection. absent : Joint Swelling, Pedal Edema - Back Exam Back Exam: NORMAL INSPECTION - Neurological Exam Neurological Exam: Alert, Awake, CN II-XII Intact, Normal Gait, Oriented x3 - Psychiatric Exam Psychiatric exam: Normal Affect, Normal Mood - Skin Skin Exam: Dry, Intact, Normal Color, Warm Assessment and Plan (1) NSTEMI (non-ST elevated myocardial infarction) Assessment & Plan: cont dapt x 1 year cont bb, ranexa cont statins s/p PCI of LCx and L PDA with LENA x 2 stable to dc home Status: Acute (2) Chest pain Status: Acute (3) HLD (hyperlipidemia) Status: Chronic (4) History of CVA (cerebrovascular accident) Status: Chronic (5) Hypertension Status: Chronic
--- NOTE | 2017-10-19 12:52 | CP.PCM.DIS ---
<Viki Cortez - Last Filed: 10/19/17 19:32> Provider - Provider Date of Admission: 10/16/17 13:12 Attending physician: Cathie Calloway DO Consults: Cardiology: Dr Maria Time Spent in preparation of Discharge (in minutes): 40 Hospital Course - Lab Results Lab Results: Micro Results 10/18/17 18:00 Naris MRSA Culture - Final MRSA NOT DETECTED 10/16/17 16:20 Naris MRSA Culture (Admit) - Final MRSA NOT DETECTED Most Recent Lab Values WBC 6.6 K/uL (4.8-10.8) 10/19/17 08:22 RBC 3.75 Mil/uL (4.40-5.90) L 10/19/17 08:22 Hgb 12.5 g/dL (12.0-18.0) 10/19/17 08:22 Hct 35.0 % (35.0-51.0) 10/19/17 08:22 MCV 93.4 fL (80.0-94.0) 10/19/17 08:22 MCH 33.2 pg (27.0-31.0) H 10/19/17 08:22 MCHC 35.6 g/dL (33.0-37.0) 10/19/17 08:22 RDW 13.6 % (11.5-14.5) 10/19/17 08:22 Plt Count 136 K/uL (130-400) 10/19/17 08:22 MPV 10.0 fL (7.2-11.7) 10/19/17 08:22 Neut % (Auto) 71.7 % (50.0-75.0) 10/19/17 08:22 Lymph % (Auto) 16.5 % (20.0-40.0) L 10/19/17 08:22 Nicholas % (Auto) 9.8 % (0.0-10.0) 10/19/17 08:22 Eos % (Auto) 1.6 % (0.0-4.0) 10/19/17 08:22 Baso % (Auto) 0.4 % (0.0-2.0) 10/19/17 08:22 Neut # 4.8 K/uL (1.8-7.0) 10/19/17 08:22 Lymph # 1.1 K/uL (1.0-4.3) 10/19/17 08:22 Nicholas # 0.7 K/uL (0.0-0.8) 10/19/17 08:22 Eos # 0.1 K/uL (0.0-0.7) 10/19/17 08:22 Baso # 0.0 K/uL (0.0-0.2) 10/19/17 08:22 PT 13.9 SECONDS (9.7-12.2) H 10/18/17 06:28 INR 1.2 10/18/17 06:28 APTT 47 SECONDS (21-34) H D 10/18/17 06:28 Sodium 138 mmol/L (132-148) 10/19/17 08:22 Potassium 3.4 mmol/L (3.6-5.2) L 10/19/17 08:22 Chloride 106 mmol/L (98-107) 10/19/17 08:22 Carbon Dioxide 27 mmol/L (22-30) 10/19/17 08:22 Anion Gap 9 (10-20) L 10/19/17 08:22 BUN 12 mg/dL (9-20) 10/19/17 08:22 Creatinine 0.8 mg/dL (0.8-1.5) 10/19/17 08:22 Est GFR ( Amer) > 60 10/19/17 08:22 Est GFR (Non-Af Amer) > 60 10/19/17 08:22 Random Glucose 102 mg/dL (75-110) 10/19/17 08:22 Hemoglobin A1c 5.6 % (4.2-6.5) 10/16/17 16:17 Calcium 7.7 mg/dl (8.6-10.4) L 10/19/17 08:22 Phosphorus 3.4 mg/dL (2.5-4.5) 10/17/17 05:25 Magnesium 1.7 mg/dL (1.6-2.3) 10/19/17 08:22 Total Bilirubin 0.9 mg/dL (0.2-1.3) 10/19/17 08:22 AST 66 U/L (17-59) H D 10/19/17 08:22 ALT 28 U/L (21-72) 10/19/17 08:22 Alkaline Phosphatase 59 U/L (38-126) 10/19/17 08:22 Total Creatine Kinase 264 U/L (55-170) H 10/19/17 08:22 CK-MB (Mass) 5.71 ng/mL (0.0-3.38) H 10/19/17 08:22 Troponin I 12.9000 ng/mL (0.00-0.120) H* 10/19/17 08:22 NT-Pro-B Natriuret Pep 2420 pg/mL (0-900) H 10/16/17 10:37 Total Protein 5.2 g/dL (6.3-8.3) L 10/19/17 08:22 Albumin 2.9 g/dL (3.5-5.0) L 10/19/17 08:22 Globulin 2.3 gm/dL (2.2-3.9) 10/19/17 08:22 Albumin/Globulin Ratio 1.3 (1.0-2.1) 10/19/17 08:22 Triglycerides 58 mg/dL (0-149) 10/16/17 16:17 Cholesterol 102 mg/dL (0-199) 10/16/17 16:17 LDL Cholesterol Direct 36 mg/dL (0-129) 10/16/17 16:17 HDL Cholesterol 44 mg/dL (30-70) 10/16/17 16:17 TSH 3rd Generation 1.62 mIU/L (0.46-4.68) 10/16/17 16:17 Urine Opiates Screen Negative (NEGATIVE) 10/16/17 19:17 Urine Methadone Screen Negative (NEGATIVE) 10/16/17 19:17 Ur Barbiturates Screen Negative (NEGATIVE) 10/16/17 19:17 Ur Phencyclidine Scrn Negative (NEGATIVE) 10/16/17 19:17 Ur Amphetamines Screen Negative (NEGATIVE) 10/16/17 19:17 U Benzodiazepines Scrn Negative (NEGATIVE) 10/16/17 19:17 U Oth Cocaine Metabols Negative (NEGATIVE) 10/16/17 19:17 U Cannabinoids Screen Negative (NEGATIVE) 10/16/17 19:17 Influenza Typ A,B (EIA) Negative for flu a/b (NEGATIVE) 10/16/17 16:17 - Hospital Course Hospital Course: HPI: 62 year old Male PMHX CVA (6-7 years ago), HTN, Lipid disorder comes in for chest pain, palpitations and associated dyspnea on exertion. Patient reports last Saturday, he felt chest pain, over left side of chest, while walking up hill, which stopped and had to breathe heavy. Patient reports chest pain improved on Saturday but was intermittent. Last night around 3:30AM, chest pain was more persistent, more frequent and he could not sleep. Patient reports he took his Plavix 75mgX1, Irebsratan [id number], Ranexa 500mg X1, and HCTZ 25mg X1 last night but did not take Aspirin for the past month because did not have script. Patient reports when he first came into the Emergency Room his chest pain was 8/10, and now on assessment it is 3/10 on pain scale. Patient was admitted for NSTEMI. Troponin was 2.87. Patient was admitted to the ICU. Patient was started on a heparin drip and was given STAT dose of plavix, aspirin and metoprolol. Echo showed low normal EF 50-55%, mild to moderate aortic regurgitation, left atrium mildly dilated, mild pulmonary valvular regurgitation (see full report). Patient was transferred to [facility] for cardiac catherization. Cath showed Left dominant system , left circumflex-large size vessel mid 99% stenosis, proximal left PDA 90% fixed both 2 LENA. Patient tolerated the procedure well and was transferred back to [facility]. Patient reports had [place] prior to coming back had a fever: 100.3F. He reports he received Tylenol and felt better. Patient was started on Ranexa 500mg BID. Patient was downgraded to telemetry floor. On day of discharge, patient was doing well. Troponins were trending down. Chest pain was improving. Physical Therapy evaluated the patient as well. Patient was medically stable and clear for discharge home. Patient to continue medications as prescribed and is to follow up with Dr Maria on Saturday10/25/17. Patient not to resume working until he is cleared by Dr. Maria. A list of medications was provided to the patient and his . Patient to follow up with [facility] clinic. (1) NONSTEMI Coronary Artery Disease with Drug Eluting Stents with POD 1 (2 stents) Chest pain on exertion Assessment and Plan: * Cardiology consult, Dr Maria on board-->help appreciated * ICU consult -->help appreciated * STACEY: 4 (CAD risk factors, Used plavix (instead of aspirin), Severe angina 2 episodes in 24 hours, Positive cardiac marker) * Echocardiogram (10/17/17): * Left ventricle is normal size. * Left ventricle systolic function is low normal. Ejection Fraction: 50-55%. * Mild hypokineses in the mid-inferior wall consistent with CAD. Right ventricle is normal size. Right ventricular systolic function is normal. Left atrium is mildly dilated. Right atrium size is normal. Mild to moderate aortic regurgitation. Mitral regurgitation is mild. Mild tricupsid regurgitation. Mild pulmonic valvular regurgitation. * Lipid panel: within normal: a1c; 5.8 * STACEY: 4 (CAD risk factors, Used plavix (instead of aspirin), Severe angina 2 episodes in 24 hours, Positive cardiac marker) * Cardiac cath 10/17/17: Left dominant system , left circumflex-large size vessel mid 99% stenosis, proximal left PDA 90% fixed both 2 LENA * Aspirin 81mg PO daily * Plavix 75mg PO daily * Toprol XL 12.5mg PO daily * Start Ranexa 500mg PO BID * Crestor 20mg POqHS * Held losartan 50mg po qd; (home medication irbesartaan 150mg not carried on hospital formulary) secondary to hypotension * UDS: negative * Crestor 20mg POqHS * TSH: 1.62 * Lipid panel: 58, Cholestrol: 102, LDL: 36, HDl: 44 * Xfubftiegwy2n: 5.6 * Troponin: 2.87-->4.96-->14-->24.100; Order for CONOR today (2) Hypertension Assessment and Plan: * Toprol XL 12.5mg PO daily Status: Chronic (3) History of CVA (cerebrovascular accident) Assessment and Plan: * Continue home medication plavix 75mg po qdaily * held losartan 50mg po qd; (home medication irbesartaan 150mg not carried on hospital formulary) secondary to hypotension * start rosuvastatin 20mg po qHS (home medication atorvastatin 40mg is not carried on hospital formulary) Status: Chronic (4) HLD (hyperlipidemia) Assessment and Plan: * Administer rosuvastatin 20mg po qd (home medication atorvastatin 40mg is not carried here) * Lipid panel ordered: controlled Status: Chronic (5) Impaired glucose tolerance Assessment and Plan: * Monitor Accuchecks Qac and HS * HgbA1C 07/2017: 6.0--->09/02/17: 5.8 Status: Chronic (6) Benign prostatic hyperplasia Assessment and Plan: * Continue home medication tamsulosin 0.4mg po qd Status: Chronic (7) Hypokalemia Assessment and Plan: * Normalized Status: Acute (8) Prophylactic measure Assessment and Plan: * Off Heparin drip today-->start heparin DVT ppx tomorrow * heart Healthy diet Discharge Medications as followed: Aspirin 81mg PO daily Plavix 75mg PO daily Crestor 20mg PO QHS Ranexa 500mg PO BID Toprol XL 12.5mg PO daily Per Cardiology recommendations, patient with need to be on dual anti-platelet therapy for 1 year. Discharge Exam - Head Exam Head Exam: ATRAUMATIC, NORMAL INSPECTION, NORMOCEPHALIC - Eye Exam Eye Exam: EOMI, Normal appearance - ENT Exam ENT Exam: Mucous Membranes Moist - Respiratory Exam Respiratory Exam: Clear to PA & Lateral, UNREMARKABLE. absent: Rales, Rhonchi, Wheezes - Cardiovascular Exam Cardiovascular Exam: REGULAR RHYTHM, +S1, +S2 - GI/Abdominal Exam GI & Abdominal Exam: Normal Bowel Sounds, Soft. absent: Guarding, Rebound, Rigid, Tenderness - Rectal Exam Rectal Exam: Deferred - Extremities Exam Extremities exam: normal inspection, pedal pulses present Additional comments: Right wrist bandage clean/dry/intact - Neurological Exam Neurological exam: Alert, CN II-XII Intact, Oriented x3 - Psychiatric Exam Psychiatric exam: Normal Affect, Normal Mood - Skin Skin Exam: Dry, Normal Color, Warm Discharge Plan - Discharge Medications Prescriptions: RX: Rosuvastatin Calcium [Crestor] 20 mg PO HS #30 tab - Follow Up Plan Condition: STABLE Disposition: HOME/ ROUTINE Instructions: Myocardial Infarction (DC), Myocardial Infarction (GEN) Referrals: Tyrone Maria MD [Staff Provider] - 7 Days (October 25-->Call Dr. Maria office ) [facility] [Provider Group] - 2 Weeks <Cathie Calloway V - Last Filed: 10/20/17 21:47> Provider - Provider Date of Admission: 10/16/17 13:12 Attending physician: Cathie V Borker, DO Primary care physician: [facility] Diagnosis - Discharge Diagnosis (1) NSTEMI (non-ST elevated myocardial infarction) Status: Resolved Comment: Discharged on: Aspirin 81mg PO daily. Plavix 75mg PO daily. Toprol XL 12.5mg PO bid. Ranexa 500mg PO BID. Crestor 20mg POqHS. Held uday/arb given patient is borderline hypotensive. (2) Hypokalemia Status: Resolved (3) Benign prostatic hyperplasia Status: Chronic Priority: Medium Comment: C/w Tamulosin 0.4mg PO daily (4) HLD (hyperlipidemia) Status: Chronic Priority: Medium Comment: c/w Crestor 20mg PO qHS (5) History of CVA (cerebrovascular accident) Status: Chronic Priority: Medium Comment: Aspirin 81mg PO daily. Plavix 75mg PO daily. Crestor 20mg POqHS (6) Hypertension Status: Chronic Priority: Medium Comment: D/c HCTZ/Irebsartan. start Toprol XL 12.5mg PO daily (7) Impaired glucose tolerance Status: Chronic Priority: Medium Comment: monitor hgba1c within one year to prevent overt diabetes Hospital Course - Lab Results Lab Results: Micro Results 10/18/17 18:00 Naris MRSA Culture - Final MRSA NOT DETECTED 10/16/17 16:20 Naris MRSA Culture (Admit) - Final MRSA NOT DETECTED Most Recent Lab Values WBC 6.6 K/uL (4.8-10.8) 10/19/17 08:22 RBC 3.75 Mil/uL (4.40-5.90) L 10/19/17 08:22 Hgb 12.5 g/dL (12.0-18.0) 10/19/17 08:22 Hct 35.0 % (35.0-51.0) 10/19/17 08:22 MCV 93.4 fL (80.0-94.0) 10/19/17 08:22 MCH 33.2 pg (27.0-31.0) H 10/19/17 08:22 MCHC 35.6 g/dL (33.0-37.0) 10/19/17 08:22 RDW 13.6 % (11.5-14.5) 10/19/17 08:22 Plt Count 136 K/uL (130-400) 10/19/17 08:22 MPV 10.0 fL (7.2-11.7) 10/19/17 08:22 Neut % (Auto) 71.7 % (50.0-75.0) 10/19/17 08:22 Lymph % (Auto) 16.5 % (20.0-40.0) L 10/19/17 08:22 Nicholas % (Auto) 9.8 % (0.0-10.0) 10/19/17 08:22 Eos % (Auto) 1.6 % (0.0-4.0) 10/19/17 08:22 Baso % (Auto) 0.4 % (0.0-2.0) 10/19/17 08: Neut # 4.8 K/uL (1.8-7.0) 10/19/17 08:22 Lymph # 1.1 K/uL (1.0-4.3) 10/19/17 08:22 Nicholas # 0.7 K/uL (0.0-0.8) 10/19/17 08:22 Eos # 0.1 K/uL (0.0-0.7) 10/19/17 08:22 Baso # 0.0 K/uL (0.0-0.2) 10/19/17 08:22 PT 13.9 SECONDS (9.7-12.2) H 10/18/17 06:28 INR 1.2 10/18/17 06:28 APTT 47 SECONDS (21-34) H D 10/18/17 06:28 Sodium 138 mmol/L (132-148) 10/19/17 08:22 Potassium 3.4 mmol/L (3.6-5.2) L 10/19/17 08:22 Chloride 106 mmol/L (98-107) 10/19/17 08:22 Carbon Dioxide 27 mmol/L (22-30) 10/19/17 08:22 Anion Gap 9 (10-20) L 10/19/17 08:22 BUN 12 mg/dL (9-20) 10/19/17 08:22 Creatinine 0.8 mg/dL (0.8-1.5) 10/19/17 08:22 Est GFR ( Amer) > 60 10/19/17 08:22 Est GFR (Non-Af Amer) > 60 10/19/17 08:22 Random Glucose 102 mg/dL (75-110) 10/19/17 08:22 Hemoglobin A1c 5.6 % (4.2-6.5) 10/16/17 16:17 Calcium 7.7 mg/dl (8.6-10.4) L 10/19/17 08:22 Phosphorus 3.4 mg/dL (2.5-4.5) 10/17/17 05:25 Magnesium 1.7 mg/dL (1.6-2.3) 10/19/17 08:22 Total Bilirubin 0.9 mg/dL (0.2-1.3) 10/19/17 08:22 AST 66 U/L (17-59) H D 10/19/17 08:22 ALT 28 U/L (21-72) 10/19/17 08:22 Alkaline Phosphatase 59 U/L (38-126) 10/19/17 08:22 Total Creatine Kinase 264 U/L (55-170) H 10/19/17 08:22 CK-MB (Mass) 5.71 ng/mL (0.0-3.38) H 10/19/17 08:22 Troponin I 12.9000 ng/mL (0.00-0.120) H* 10/19/17 08:22 NT-Pro-B Natriuret Pep 2420 pg/mL (0-900) H 10/16/17 10:37 Total Protein 5.2 g/dL (6.3-8.3) L 10/19/17 08:22 Albumin 2.9 g/dL (3.5-5.0) L 10/19/17 08:22 Globulin 2.3 gm/dL (2.2-3.9) 10/19/17 08:22 Albumin/Globulin Ratio 1.3 (1.0-2.1) 10/19/17 08:22 Triglycerides 58 mg/dL (0-149) 10/16/17 16:17 Cholesterol 102 mg/dL (0-199) 10/16/17 16:17 LDL Cholesterol Direct 36 mg/dL (0-129) 10/16/17 16:17 HDL Cholesterol 44 mg/dL (30-70) 10/16/17 16:17 TSH 3rd Generation 1.62 mIU/L (0.46-4.68) 10/16/17 16:17 Urine Opiates Screen Negative (NEGATIVE) 10/16/17 19:17 Urine Methadone Screen Negative (NEGATIVE) 10/16/17 19:17 Ur Barbiturates Screen Negative (NEGATIVE) 10/16/17 19:17 Ur Phencyclidine Scrn Negative (NEGATIVE) 10/16/17 19:17 Ur Amphetamines Screen Negative (NEGATIVE) 10/16/17 19:17 U Benzodiazepines Scrn Negative (NEGATIVE) 10/16/17 19:17 U Oth Cocaine Metabols Negative (NEGATIVE) 10/16/17 19:17 U Cannabinoids Screen Negative (NEGATIVE) 10/16/17 19:17 Influenza Typ A,B (EIA) Negative for flu a/b (NEGATIVE) 10/16/17 16:17 Discharge Exam - Respiratory Exam Respiratory Exam: NORMAL BREATHING PATTERN - GI/Abdominal Exam GI & Abdominal Exam: absent: Diminished Bowel Sounds, Distended, Firm Clinical Quality Measures - CQM - Stroke Antithrombotic Prescribed: Yes Anticoagulation Prescribed for Atrial Flutter, Atrial Fibrillation and History of:: Not Applicable Statin prescribed: Yes - Date & Time of Discharge Summary Date of Discharge Summary: 10/19/17 Time of Discharge Summary: 12:15 Attending/Attestation - Attestation I have personally seen and examined this patient.: Yes I have fully participated in the care of the patient.: Yes I have reviewed all pertinent clinical information, including history, physical exam and plan: Yes Notes (Text): This is late computer entry for 10/19/17. Patient seen, examined, case discussed with medical accounting clerk. Patient denies acute complaints. Case discussed with cardiology of patient stable for discharge. With assistance with translation by Thai-speaking nurse Melissa explained all 5 medications needed in light of patient's recent home heart attack. I have written list also provided to the patient all his medications updated as well as those that need to be discontinued. Patient to follow-up with benefits technician on Saturday, October 25 and office to determine when he can return back to work. Patient recommended to follow-up in the [facility] clinic within 1 month for refills of medications. Discharge instructions splint both the patient and patient's at bedside. New prescriptions: * Aspirin 81mg PO daily * Plavix 75mg PO daily * Toprol XL 12.5mg PO daily * Start Ranexa 500mg PO BID * Crestor 20mg POqHS Discontinue: HCTZ, Irebesartan, Lipitor. Continue: Flomax. This is a summary of patient's hospitalization please refer to EMR for further detail record. Please noted updated assessment/plan below: Assessment/Plan (1) NONSTEMI--Stable Coronary Artery Disease with Drug Eluting Stents with POD 2 (2 stents) --Stable Chest pain on exertion-->Resolved Assessment and Plan: * Cardiology consult, Dr Maria on board-->help appreciated * ICU consult -->help appreciated * STACEY: 4 (CAD risk factors, Used plavix (instead of aspirin), Severe angina 2 episodes in 24 hours, Positive cardiac marker) * Echocardiogram (10/17/17): * Left ventricle is normal size. * Left ventricle systolic function is low normal. Ejection Fraction: 50-55%. * Mild hypokineses in the mid-inferior wall consistent with CAD. Right ventricle is normal size. Right ventricular systolic function is normal. Left atrium is mildly dilated. Right atrium size is normal. Mild to moderate aortic regurgitation. Mitral regurgitation is mild. Mild tricupsid regurgitation. Mild pulmonic valvular regurgitation. * Lipid panel: within normal: a1c; 5.8 * STACEY: 4 (CAD risk factors, Used plavix (instead of aspirin), Severe angina 2 episodes in 24 hours, Positive cardiac marker) * Cardiac cath 10/17/17: Left dominant system , left circumflex-large size vessel mid 99% stenosis, proximal left PDA 90% fixed both 2 LENA * Aspirin 81mg PO daily * Plavix 75mg PO daily * Toprol XL 12.5mg PO daily * Start Ranexa 500mg PO BID * Crestor 20mg POqHS * Held losartan 50mg po qd; (home medication irbesartaan 150mg not carried on hospital formulary) secondary to hypotension * UDS: negative * Crestor 20mg POqHS * TSH: 1.62 * Lipid panel: 58, Cholestrol: 102, LDL: 36, HDl: 44 * [id number]: 5.6 * Troponin: 2.87-->4.96-->14-->24.100-->18.00-->12.00 Upon discharge (1 month supply): * Aspirin 81mg PO daily * Plavix 75mg PO daily * Toprol XL 12.5mg PO daily * Ranexa 500mg PO BID * Crestor 20mg POqHS * Held losartan 50mg po qd secondary secondary to hypotension * Will need dual anti-platelet for 1 year * Translation provided in Thai with assistance from Thai-speaking nurse, Christie. (2) Hypertension-->Chronic Assessment and Plan: * Toprol XL 12.5mg PO daily-->continue upon discharge * Patient's home medication HCTZ/Irebesartan discontinued Status: Chronic (3) History of CVA (cerebrovascular accident)-->Chronic Assessment and Plan: * Continue home medication plavix 75mg po qdaily * held losartan 50mg po qd; (home medication irbesartaan 150mg not carried on hospital formulary) secondary to hypotension * c/w Rosuvastatin 20mg po qHS (home medication atorvastatin 40mg is not carried on hospital formulary) * Upon discharge (1 month supply): * Aspirin 81mg PO daily * Plavix 75mg PO daily * Crestor 20mg POqHS Status: Chronic (4) HLD (hyperlipidemia)-->Chronic Assessment and Plan: * c/w rosuvastatin 20mg po qd (home medication atorvastatin 40mg is not carried here) upon discharge * Lipid panel ordered: controlled Status: Chronic (5) Impaired glucose tolerance-->Chronic Assessment and Plan: * Monitor Accuchecks Qac and HS * HgbA1C 07/2017: 6.0--->09/02/17: 5.8 * check a1c within one year to prevent overt diabetes Status: Chronic (6) Benign prostatic hyperplasia-->Chronic Assessment and Plan: * Continue home medication tamsulosin 0.4mg po qd upon discharge Status: Chronic (7) Hypokalemia--Resolved Assessment and Plan: * Normalized Status: Acute (8) Prophylactic measure Assessment and Plan: * on dvt ppx * heart Healthy diet Status: Acute Disposition: s/p POD 2 cardiac cath with LENA 2 stents. Per cardiology, patient is stable for discharge. Recommended to f/u with Dr. Maria, this upcoming SaturdayOctober 25, to call his [place] office for appointment.
--- NOTE | 2017-10-22 22:24 | CARD ---
APPROVED REPORT EKG Measurement Heart [id number] [place] [id number] <Conclusion> Sinus rhythm with premature atrial complexes with aberrant conduction Nonspecific ST abnormality Abnormal ECG
--- NOTE | 2017-10-22 22:24 | CARD ---
APPROVED REPORT EKG Measurement Heart [id number] [place] [id number] <Conclusion> Sinus bradycardia ST & T wave abnormality, consider inferior ischemia Abnormal ECG
--- NOTE | 2017-10-22 22:24 | CARD ---
APPROVED REPORT EKG Measurement Heart [id number] [place] [id number] <Conclusion> Sinus bradycardia Otherwise normal ECG
--- NOTE | 2017-10-22 22:40 | CARD ---
APPROVED REPORT EKG Measurement Heart [id number] [place] [id number] [id number] <Conclusion> Normal sinus rhythm ST & T wave abnormality, consider inferior ischemia Abnormal ECG
== END 2017-10-19 14:15 | disposition home or self-care (01) | DRG 853 ==
LOC: C.ER 08:52 → C.9E 13:12 → C.9I 15:39 → C.6T 10-18 19:04
PROVIDERS: ADMIT Hospitalist; ATTEND Hospitalist
PROC: 027135Z Dilation of Coronary Artery, Two Arteries with Two Drug-eluting Intraluminal Devices, Percutaneous Approach (ICD-10-PCS; principal; 2017-10-17)
PROC: 4A023N7 Measurement of Cardiac Sampling and Pressure, Left Heart, Percutaneous Approach (ICD-10-PCS; 2017-10-17)
PROC: B201YZZ Plain Radiography of Multiple Coronary Arteries using Other Contrast (ICD-10-PCS; 2017-10-17)
PROC: B205YZZ Plain Radiography of Left Heart using Other Contrast (ICD-10-PCS; 2017-10-17)
DX: I21.4 Non-ST elevation (NSTEMI) myocardial infarction (principal); I95.9 Hypotension, unspecified; E87.6 Hypokalemia; I25.119 Atherosclerotic heart disease of native coronary artery with unspecified angina pectoris; I10 Essential (primary) hypertension; R00.1 Bradycardia, unspecified; E78.5 Hyperlipidemia, unspecified; N40.0 Benign prostatic hyperplasia without lower urinary tract symptoms; Z86.73 Personal history of transient ischemic attack (TIA), and cerebral infarction without residual deficits; R73.02 Impaired glucose tolerance (oral); Z87.891 Personal history of nicotine dependence

== ENCOUNTER 2017-12-24 20:38 | Inpatient (IN) | payer OTHER ==
[2017-12-24 20:38] VITALS: BMI 27.9
[2017-12-24] MEDS ORDERED: Aspirin 325 mg EC Tablets PO STA (21:02)
--- NOTE | 2017-12-24 21:02 | C.PDOC ---
History Of Present Illness Patients presents to the ER with a complaint of a pressure chest pain that began today. Patient has a Hx of a non ST elevation NE in September. Denies fever , chills, nausea, or vomiting. Time Seen by Provider: 12/24/17 21:01 Chief Complaint (Nursing): Chest Pain History Per: Patient History/Exam Limitations: no limitations Onset/Duration Of Symptoms: Days Current Symptoms Are (Timing): Still Present Severity: Moderate Pain Scale Rating Of: 4 Quality: Pressure Associated Symptoms: denies: Nausea, Dyspnea, Diaphoresis, Syncope Modifying Factors: None Exacerbating Factors: None Alleviating Factors: None Recent travel outside of the [place]: No Additional History Per: Patient Past Medical History Reviewed: Historical Data, Nursing Documentation, Vital Signs Vital Signs: Last Vital Signs Temp 97.8 F 12/24/17 20:42 Pulse 69 12/24/17 21:02 Resp 20 12/24/17 20:42 BP 120/66 12/24/17 21:02 Pulse Ox 98 12/24/17 22:14 - Medical History PMH: Arthritis, HTN, Hypercholesterolemia Surgical History: Cholecystectomy, Tonsillectomy - [facility] DILATION OF 2 COR ART WITH 2 DRUG-ELUT, PERC APPROACH (10/16/17) MEASURE OF CARDIAC SAMPL & PRESSURE, L HEART, PERC APPROACH (10/16/17) PLAIN RADIOGRAPHY OF LEFT HEART USING OTHER CONTRAST (10/16/17) PLAIN RADIOGRAPHY OF MULT COR ART USING OTH CONTRAST (10/16/17) Family History: States: No Known Family Hx - Social History Hx Alcohol Use: No Hx Substance Use: No - Immunization History Hx Tetanus Toxoid Vaccination: Yes Hx Influenza Vaccination: Yes Hx Pneumococcal Vaccination: Yes Review Of Systems Constitutional: Negative for: Fever, Chills Eyes: Negative for: Vision Change Cardiovascular: Positive for: Chest Pain Respiratory: Negative for: Cough Gastrointestinal: Negative for: Nausea, Vomiting, Diarrhea Genitourinary: Negative for: Dysuria, Hematuria Musculoskeletal: Negative for: Neck Pain, Arm Pain Skin: Negative for: Rash Neurological: Negative for: Weakness, Numbness Psych: Negative for: Anxiety Physical Exam - Physical Exam Appears: Non-toxic Skin: Warm, Dry Head: Normacephalic Eye(s): bilateral: Normal Inspection Ear(s): Bilateral: Normal Oral Mucosa: Moist Throat: Normal, No Erythema Neck: Normal, Supple Chest: Symmetrical, No Tenderness Cardiovascular: Rhythm Regular Respiratory: No Rales, No Rhonchi, No Wheezing Gastrointestinal/Abdominal: Soft, No Tenderness Back: No CVA Tenderness Extremity: No Pedal Edema Extremity: Bilateral: Atraumatic Pulses: Left Dorsalis Pedis: Normal, Right Dorsalis Pedis: Normal Neurological/Psych: Oriented x3, Normal Speech, Normal Cognition Gait: Steady ED Course And Treatment - Laboratory Results Result Diagrams: 12/24/17 21:09 12/24/17 21:09 ECG: Interpreted By Me, Viewed By Me ECG Rhythm: Sinus Rhythm (71), Nonspecific Changes O2 Sat by Pulse Oximetry: 98 (Room air) Pulse Ox Interpretation: Normal - Radiology CXR: Interpreted by Me, Viewed By Me Progress Note: EKG, blood work, urinalysis, and CXR ordered. Aspirin administered. Disposition Discussed With DrMckenna: Mono Mata Comment: accepted the pt on his service and took over the care at 10 PM Doctor Will See Patient In The: ED Counseled Patient/Family Regarding: Studies Performed, Diagnosis - Disposition Disposition: HOSPITALIZED Disposition Time: 21:01 Condition: FAIR Forms: [facility] ([place]ralt[place]) - POA Present On Arrival: Poor Glycemic Control - Clinical Impression Clinical Impression: Chest pain - Scribe Statement The provider has reviewed the documentation as recorded by the Scribmarleen Ortiz All medical record entries made by the Scribe were at my direction and personally dictated by me. I have reviewed the chart and agree that the record accurately reflects my personal performance of the history, physical exam, medical decision making, and the department course for this patient. I have also personally directed, reviewed, and agree with the discharge instructions and disposition. Decision To Admit - Pt Status Changed To: Hospital Disposition Of: Inpatient - Admit Certification Admit to Inpatient:: After my assessment, the patient will require hospitalization for at least two midnights. This is because of the severity of symptoms shown, intensity of services needed, and/or the medical risk in this patient being treated as an outpatient. - InPatient: Physician Admission Certification: I certify that this patient requires 2 or more midnights of care for the following reason:: After my assessment, the patient will require hospitalization for at least two midnights. This is because of the severity of symptoms shown, intensity of services needed, and/or the medical risk in this patient being treated as an outpatient. - . Bed Request Type: Telemetry Admitting Physician: Mono Mata Patient Diagnosis: Chest pain
[2017-12-24 21:14] LABS: BASO % 0.6 % (0.0-2.0); EOS # 0.1 K/uL (0.0-0.7); EOS % 0.8 % (0.0-4.0); HEMOGLOBIN 13.7 g/dL (12.0-18.0); LYMPH # 1.1 K/uL (1.0-4.3); LYMPH % 17.5 % (20.0-40.0); MEAN CELL VOLUME 92.2 fL (80.0-94.0); MEAN CORPUSCULAR HEMOGLOBIN 31.6 pg (27.0-31.0); MEAN CORPUSCULAR HGB CONC 34.3 g/dL (33.0-37.0); MEAN PLATELET VOLUME 10.3 fL (7.2-11.7); MONO # 0.4 K/uL (0.0-0.8); MONO % 6.1 % (0.0-10.0); NEUT # 4.7 K/uL (1.8-7.0); RBC 4.35 Mil/uL (4.40-5.90); WHITE BLOOD COUNT 6.3 K/uL (4.8-10.8)
[2017-12-24 21:25] LABS: INR 1.1; PROTHROMBIN TIME 12.4 SECONDS (9.7-12.2)
[2017-12-24 21:41] LABS: ALB/GLOB RATIO 1.7 (1.0-2.1); ALBUMIN 4.1 g/dL (3.5-5.0); ALT/SGPT 24 U/L (21-72); AST/SGOT 23 U/L (17-59); BLOOD UREA NITROGEN 21 mg/dL (9-20); CALCIUM 8.5 mg/dl (8.6-10.4); GFR AFRICAN-AMERICAN > 60; GFR NON-AFRICAN AMERICAN > 60
[2017-12-24] MEDS ORDERED: Aspirin 325 mg EC Tablets PO ONE (21:58)
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
[2017-12-25 02:45] LABS: CK-MB 0.98 ng/mL (0.0-3.38); TROPONIN I 0.05 ng/mL (0.00-0.120)
--- NOTE | 2017-12-25 07:19 | CP.PCM.CON ---
History of Present Illness - History of Present Illness History of Present Illness: Cardiology Consult Note- Resident- Robbi; Attending Physician- Dr. Maria Subjective: CC: Chest pain and palpitations HPI: Patient is a 62 year old male with a PMH of NSTEMI w/ LENA x 2 (Sep 2017), CAD, HLD, HTN, CVA, BPH who was admitted for evaluation and treatment of chest pain and palpitations. Cardiology was consulted for management of aforementioned symptoms. The chest pain began yesterday morning upon exertion. It originated in the left parasternal region and was characterized as being dull and constant. It was rated a 9/10 and states the pain resolved after arriving to the hospital. The chest pain was associated with palpitations, anxiety, and SOB on exertion. Exacerbating factors include increased activity and relieving factors include rest and flatus. Denies fever, chills, dizziness, chest pain, SOB, N/V, anxiety. PMH: NSTEMI (Sep 2017) w/ 2 LENA, CAD, CVA (6-7 years ago; residual difficulty with word finding), HLD, HTN, BPH, impaired glucose tolerance, Vitamin D deficiency PSH: Cardiac catheterization with LENA x 2 (September 2017), laparoscopic cholecystectomy (2011), per chart review: amygdala (1984) Medications: Crestor 20mg PO daily; Toprol 12.5mg PO daily, Plavix 75mg PO daily , Flomax 0.4mg PO daily; Zestril 2.5mg PO daily, Lasix 20mg PO daily, Ergocalciferol (Vitamin D2) PO daily, Aspirin 81mg PO daily Allergies: Penicillin (anaphylaxis), benadryl (questionable--makes BP go down) Family History: Father-DM; Mother-HTN; no known family history of [place]/CAD Social History: lives with ; former 40 pack year smoker, quit 30 years ago; denies ETOH; denies recreational drug use Physical Examination: - Constitutional Appears: Non-toxic, No Acute Distress - Head Exam Head Exam: ATRAUMATIC, NORMOCEPHALIC - Eye Exam Eye Exam: EOMI, Normal appearance, PERRL Pupil Exam: PERRL - ENT Exam ENT Exam: Mucous Membranes Moist, Normal External Ear Exam, Normal Oropharynx - Respiratory Exam Respiratory Exam: Clear to Auscultation Bilateral. absent: Rales, Rhonchi, Wheezes - Cardiovascular Exam Cardiovascular Exam: REGULAR RHYTHM, +S1, +S2 - GI/Abdominal Exam GI & Abdominal Exam: Normal Bowel Sounds, Soft. absent: Distended, Rebound, Tenderness - Extremities Exam Extremities exam: Positive for: full ROM, pedal pulses present. 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 Treated with ASA 325mg PO in ED. Chest pain; History of NSTEMI - EKG reviewed and appreciated- NSR, HR 71 bpm, Qtc 417ms, no definitive ST changes; T wave inversions in III - recent PCI intervention in 09/2017 w/ LENA x 2 w/ Dr Maria - troponins: 0.0350--0.050--0.0590 - Continue home medications: Plavix 75mg PO daily , Aspirin 81mg PO daily, Crestor 20mg PO daily, Toprol 12.5mg PO daily - cardiac catherization planned for tomorrow- will continue to monitor closely and continue medical therapy, keep patient NPO after midnight Palpitations - EKG reviewed and appreciated- - NSR, HR 71 bpm, Qtc 417ms, no definitive ST changes; T wave inversions in III - continue on telemetry- experienced 12 beat run of Vtach this AM, not sustained , no chest pain or SOB associated with palpitations- cardiac catherization scheduled for tomorrow History of Hypertension - BP reviewed, trended, and appreciated- goal SBP 90-150mmHg, DBP 90-100mmHg - Continue home medications: Zestril 2.5mg PO daily - hold home med Lasix 20mg PO daily - continue with Heart healthy diet w/ low salt History of Hyperlipidemia - lipid panel reviewed from 11/22/2017- TAG, CHL, LDL, and HDL WNL - continue with Crestor 20mg PO daily History of CVA (cerebrovascular accident) - c/w Plavix 75mg PO QD History of benign prostatic hyperplasia - c/w Flomax 0.4mg PO daily - further management as per primary History of vitamin D deficiency - c/w Ergocalciferal (vitamin D2) PO daily - further management as per primary Prophylactic measure - DVT: SCDs, on ASA and Plavix - GI: not indicated - c/w Heart healthy diet Patient case discussed with and plan approved by attending physician, Dr. Maria. Past Patient History - Infectious Disease Hx of Infectious Diseases: None - Past Medical History & Family History Past Medical History?: Yes - Past Social History Smoking Status: Former Smoker - CARDIAC Hx Hypercholesterolemia: Yes Hx Hypertension: Yes - PULMONARY Hx Respiratory Disorders: No - NEUROLOGICAL Hx Neurological Disorder: Yes HX Cerebrovascular Accident: Yes (2006) - HEENT Hx HEENT Problems: No - RENAL Hx Chronic Kidney Disease: No - ENDOCRINE/METABOLIC Hx Endocrine Disorders: No - HEMATOLOGICAL/ONCOLOGICAL Hx Blood Disorders: No - INTEGUMENTARY Hx Dermatological Problems: No - MUSCULOSKELETAL/RHEUMATOLOGICAL Hx Arthritis: Yes - GASTROINTESTINAL Hx Gastrointestinal Disorders: No - GENITOURINARY/GYNECOLOGICAL Hx Genitourinary Disorders: No - PSYCHIATRIC Hx Substance Use: No - SURGICAL HISTORY Hx Cholecystectomy: Yes Hx Tonsillectomy: Yes - ANESTHESIA Hx Anesthesia: Yes Hx Anesthesia Reactions: No Hx Malignant Hyperthermia: No Meds Home Medications: Home Medication List Medication Instructions Recorded Confirmed Type Aspirin [Ecotrin] 81 mg PO DAILY #30 tabec 12/25/17 Rx Clopidogrel [Plavix] 75 mg PO DAILY #30 tab 12/25/17 Rx Ergocalciferol (Vitamin D2) 2,000 unit PO DAILY #30 tablet 12/25/17 Rx [Vitamin D2] Famotidine [Pepcid] 40 mg PO DAILY #30 tab 12/25/17 Rx Lisinopril [Zestril] 2.5 mg PO DAILY #30 tab 12/25/17 Rx Metoprolol Succinate XL [Toprol XL] 12.5 mg PO DAILY #30 tab 12/25/17 Rx Rosuvastatin Calcium [Crestor] 20 mg PO HS #30 tab 12/25/17 Rx Tamsulosin [Flomax] 0.4 mg PO DAILY #30 cap 12/25/17 Rx Allergies/Adverse Reactions: Allergies Allergy/AdvReac Type Severity Reaction Status Date / Time Penicillins Allergy ANAPHYLAXIS Verified 12/24/17 20:46 diphenhydramine AdvReac Verified 12/24/17 20:46 [From Benadryl] - Medications Medications: Current Medications Aspirin (Ecotrin) 81 mg PO DAILY [facility] Clopidogrel Bisulfate (Plavix) 75 mg PO DAILY [facility] Home Med (Ergocalciferol (Vitamin D2) [Vitamin D2]) 2,000 unit PO DAILY [facility] Lisinopril (Zestril) 2.5 mg PO DAILY [facility] Metoprolol Succinate (Toprol Xl) 12.5 mg PO DAILY [facility] Rosuvastatin Calcium (Crestor) 20 mg PO HS JASON Tamsulosin HCl (Flomax) 0.4 mg PO DAILY [facility] Results - Vital Signs Recent Vital Signs: Last Vital Signs Temp 97.7 F 12/25/17 00:09 Pulse 56 L 12/25/17 01:40 Resp 20 12/25/17 00:09 BP 130/44 L 12/25/17 00:09 Pulse Ox 97 12/25/17 00:09 - Labs Result Diagrams: 12/25/17 07:01 12/25/17 06:59 Labs: Laboratory Results - last 24 hr 12/24/17 12/24/17 12/24/17 21:09 21:09 21:09 WBC 6.3 RBC 4.35 L Hgb 13.7 Hct 40.1 MCV 92.2 MCH 31.6 H MCHC 34.3 RDW 14.0 Plt Count 131 MPV 10.3 Neut % (Auto) 75.0 Lymph % (Auto) 17.5 L [place] % (Auto) 6.1 Eos % (Auto) 0.8 Baso % (Auto) 0.6 Neut # (Auto) 4.7 Lymph # (Auto) 1.1 [place] # (Auto) 0.4 Eos # (Auto) 0.1 Baso # (Auto) 0.0 PT 12.4 H INR 1.1 APTT 36 H Sodium 139 Potassium 3.9 Chloride 100 Carbon Dioxide 27 Anion Gap 16 BUN 21 H Creatinine 0.9 Est GFR ( Amer) > 60 Est GFR (Non-Af Amer) > 60 Random Glucose 147 H Calcium 8.5 L Total Bilirubin 0.7 AST 23 ALT 24 Alkaline Phosphatase 53 Total Creatine Kinase CK-MB (Mass) Troponin I 0.0350 Total Protein 6.5 Albumin 4.1 Globulin 2.5 Albumin/Globulin Ratio 1.7 12/25/17 02:19 WBC RBC Hgb Hct MCV MCH MCHC RDW Plt Count MPV Neut % (Auto) Lymph % (Auto) [place] % (Auto) Eos % (Auto) Baso % (Auto) Neut # (Auto) Lymph # (Auto) [place] # (Auto) Eos # (Auto) Baso # (Auto) PT INR APTT Sodium Potassium Chloride Carbon Dioxide Anion Gap BUN Creatinine Est GFR ( Amer) Est GFR (Non-Af Amer) Random Glucose Calcium Total Bilirubin AST ALT Alkaline Phosphatase Total Creatine Kinase 80 CK-MB (Mass) 0.98 Troponin I 0.0500 Total Protein Albumin Globulin Albumin/Globulin Ratio
[2017-12-25 07:32] LABS: BASO # 0.1 K/uL (0.0-0.2); BASO % 2.1 % (0.0-2.0); EOS # 0.1 K/uL (0.0-0.7); EOS % 2.9 % (0.0-4.0); HEMOGLOBIN 13.9 g/dL (12.0-18.0); LYMPH # 1.8 K/uL (1.0-4.3); LYMPH % 35.2 % (20.0-40.0); MEAN CELL VOLUME 93.2 fL (80.0-94.0); MEAN CORPUSCULAR HEMOGLOBIN 32.1 pg (27.0-31.0); MEAN CORPUSCULAR HGB CONC 34.5 g/dL (33.0-37.0); MEAN PLATELET VOLUME 10.7 fL (7.2-11.7); MONO # 0.3 K/uL (0.0-0.8); MONO % 6.5 % (0.0-10.0); NEUT # 2.7 K/uL (1.8-7.0); NEUT % 53.3 % (50.0-75.0); NRBC % 0.1 % (0.0-2.0); RBC 4.34 Mil/uL (4.40-5.90)
[2017-12-25 07:54] LABS: ALB/GLOB RATIO 1.5 (1.0-2.1); ALT/SGPT 31 U/L (21-72); AST/SGOT 27 U/L (17-59); BLOOD UREA NITROGEN 19 mg/dL (9-20); CALCIUM 9.5 mg/dl (8.6-10.4); GFR AFRICAN-AMERICAN > 60; GFR NON-AFRICAN AMERICAN > 60; MAGNESIUM 2.2 mg/dL (1.6-2.3)
--- NOTE | 2017-12-25 09:07 | RAD ---
PROCEDURE: CHEST RADIOGRAPH, 1 VIEW HISTORY: Chest pain COMPARISON: 10/16/2017. FINDINGS: LUNGS: The lungs are well inflated and clear. PLEURA: No pneumothorax or pleural fluid seen. CARDIOVASCULAR: Normal. OSSEOUS STRUCTURES: No significant abnormalities. VISUALIZED UPPER ABDOMEN: Normal. OTHER FINDINGS: None. IMPRESSION: No active pulmonary disease.
[2017-12-25] MEDS: Enoxaparin 40 mg Syringe SC SCH (09:22)
[2017-12-25] MEDS: ERGOCALCIFEROL 2000 UNIT PO SCH (09:23)
[2017-12-25] MEDS: Metoprolol Succinate 12.5 mg XL PO SCH (09:23)
[2017-12-25 12:09] LABS: CK-MB 0.91 ng/mL (0.0-3.38); TROPONIN I 0.059 ng/mL (0.00-0.120)
--- NOTE | 2017-12-25 14:18 | CP.PCM.PN ---
<Yolis Donato - Last Filed: 12/25/17 15:21> Subjective - Date & Time of Evaluation Date of Evaluation: 12/25/17 Time of Evaluation: 09:00 - Subjective Subjective: Medicine Note for Hospitalist Service- Dr. Lux Patient was seen and examined at bedside. Patient reports at times he feels intermittent sharp chest pains after the PCI placement. This morning during exam he felt his heart race, tele monitor showed [address] Maria notified. Patient is for cardiac cath tomorrow. Denied fever, chills, headache, SOB, chest pain, abdominal pain, n/v/d/c/ or urinary symptoms. Objective - Vital Signs/Intake and Output Vital Signs (last 24 hours): Temp Pulse Resp BP Pulse Ox 97.6 F 58 L 20 119/66 98 12/25/17 08:00 12/25/17 08:00 12/25/17 08:00 12/25/17 08:00 12/25/17 08:00 Intake and Output: 12/25/17 12/25/17 06:59 18:59 Intake Total 500 Balance 500 - Medications Medications: Current Medications Aspirin (Ecotrin) 81 mg PO DAILY [facility] Last Admin: 12/25/17 09:22 Dose: 81 mg Clopidogrel Bisulfate (Plavix) 75 mg PO DAILY [facility] Last Admin: 12/25/17 09:26 Dose: 75 mg Enoxaparin Sodium (Lovenox) 40 mg SC DAILY [facility] Last Admin: 12/25/17 09:22 Dose: 40 mg Home Med (Ergocalciferol (Vitamin D2) [Vitamin D2]) 2,000 unit PO DAILY [facility] Last Admin: 12/25/17 09:23 Dose: 2,000 unit Lisinopril (Zestril) 2.5 mg PO DAILY [facility] Last Admin: 12/25/17 09:22 Dose: 2.5 mg Metoprolol Succinate (Toprol Xl) 12.5 mg PO DAILY [facility] Last Admin: 12/25/17 09:23 Dose: 12.5 mg Rosuvastatin Calcium (Crestor) 20 mg PO [facility] Tamsulosin HCl (Flomax) 0.4 mg PO DAILY [facility] Last Admin: 12/25/17 09:22 Dose: 0.4 mg - Labs Labs: 12/25/17 07:12/25/17 06:59 PT 12.4 SECONDS (9.7-12.2) H 12/24/17 21:09 INR 1.1 12/24/17 21:09 APTT 36 SECONDS (21-34) H 12/24/17 21:09 - Additional Findings Additional findings: - Constitutional Appears: Non-toxic, No Acute Distress - Head Exam Head Exam: ATRAUMATIC, NORMOCEPHALIC - Eye Exam Eye Exam: EOMI, Normal appearance, PERRL Pupil Exam: PERRL - ENT Exam ENT Exam: Mucous Membranes Moist, Normal External Ear Exam, Normal Oropharynx - Respiratory Exam Respiratory Exam: Clear to Auscultation Bilateral. absent: Rales, Rhonchi, Wheezes - Cardiovascular Exam Cardiovascular Exam: REGULAR RHYTHM, +S1, +S2 - GI/Abdominal Exam GI & Abdominal Exam: Normal Bowel Sounds, Soft. absent: Distended, Rebound, Tenderness - Extremities Exam Extremities exam: Positive for: full ROM, pedal pulses present. 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 Maria CXR in ED (12/24/17) F/U official report EKG: NSR, no ST or T waves changes noted Troponin I x3 NEGATIVE Plan for Cardiac Cath 12/26/17, patient will be NPO Continue home medications: Plavix 75mg PO daily Aspirin 81mg PO daily Crestor 20mg PO daily Toprol 12.5mg PO daily Palpitations Assessment and Plan: Consult placed to comptroller Dr. 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 or T waves changes noted potline monitor Patient had 12 beats of VTACH Plan for Cardiac Cath 12/26/17 History of hypertension Assessment and Plan: BP borderline low Continue home medications: Zestril 2.5mg PO daily HOLD home med Lasix 20mg PO daily History of hyperlipidemia Assessment and Plan: Heart healthy diet w/ low salt Continue home medications: Crestor 20mg PO daily History of CVA (cerebrovascular accident) Assessment and Plan: No residual deficits noted Cont home med Plavix 75mg PO QD History of benign prostatic hyperplasia Assessment and Plan: Continue home medications: Flomax 0.4mg PO daily History of vitamin D deficiency Assessment and Plan: As per medical record Continue home medications: Ergocalciferal (vitamin D2) PO daily Prophylactic measure Assessment and Plan: DVT: SCDs, on ASA and Plavix GI: not indicated Heart healthy diet DW Dr. Lux, Yolis Donato DO, PGY1 <Rory Lux - Last Filed: 12/25/17 18:38> Objective - Vital Signs/Intake and Output Vital Signs (last 24 hours): Temp Pulse Resp BP Pulse Ox 97.8 F 62 18 95/53 L 96 12/25/17 15:00 12/25/17 16:17 12/25/17 15:00 12/25/17 15:00 12/25/17 15:00 Intake and Output: 12/25/17 12/25/17 06:59 18:59 Intake Total 500 300 Balance 500 300 - Medications Medications: Current Medications Aspirin (Ecotrin) 81 mg PO DAILY [facility] Last Admin: 12/25/17 09:22 Dose: 81 mg Clopidogrel Bisulfate (Plavix) 75 mg PO DAILY [facility] Last Admin: 12/25/17 09:26 Dose: 75 mg Enoxaparin Sodium (Lovenox) 40 mg SC DAILY [facility] Last Admin: 12/25/17 09:22 Dose: 40 mg Home Med (Ergocalciferol (Vitamin D2) [Vitamin D2]) 2,000 unit PO DAILY [facility] Last Admin: 12/25/17 09:23 Dose: 2,000 unit Lisinopril (Zestril) 2.5 mg PO DAILY [facility] Last Admin: 12/25/17 09:22 Dose: 2.5 mg Metoprolol Succinate (Toprol Xl) 12.5 mg PO DAILY [facility] Last Admin: 12/25/17 09:23 Dose: 12.5 mg Rosuvastatin Calcium (Crestor) 20 mg PO [facility] Tamsulosin HCl (Flomax) 0.4 mg PO DAILY [facility] Last Admin: 12/25/17 09:22 Dose: 0.4 mg - Labs Labs: 12/25/17 07:01 12/25/17 06:59 PT 12.4 SECONDS (9.7-12.2) H 12/24/17 21:09 INR 1.1 12/24/17 21:09 APTT 36 SECONDS (21-34) H 12/24/17 21:09 Attending/Attestation - Attestation I have personally seen and examined this patient.: Yes I have fully participated in the care of the patient.: Yes I have reviewed all pertinent clinical information, including history, physical exam and plan: Yes Notes (Text): patient was seen and examined No sob,no chest pain. S/P VT discussed with Dr Maria. pt is going for cath tomorrow i agree with the documentation of the assessment and the plan. 12/25/17 18:37
[2017-12-25 14:54] LABS: URINE BILIRUBIN NEGATIVE (NEGATIVE); URINE BLOOD NEGATIVE (NEGATIVE); URINE CLARITY Clear (Clear); URINE COLOR Yellow (YELLOW); URINE GLUCOSE (UA) NORMAL (Normal); URINE LEUKOCYTE ESTERASE NEG Leu/uL (Negative); URINE NITRATE NEGATIVE (NEGATIVE); URINE PROTEIN NEGATIVE (NEGATIVE); URINE UROBILINOGEN NORMAL mg/dL (0.2-1.0)
--- NOTE | 2017-12-25 21:09 | CP.PCM.CON ---
History of Present Illness - History of Present Illness History of Present Illness: consultation for evaluation of chest pain HPI: 62-year-old male with past medical history significant for hypertension dyslipidemia who presented to [facility] in September with non- ST elevation [place] was subsequently transferred to on at which time he underwent PTCA stenting of left circumflex coronary artery and a left PDA with drug-eluting stent 2. Patient now presents with complains of chest pain and palpitations. According to the patient he felt a left sided sharp stabbing in nature pain 8 out of 10 intensity which got him concerned regarding his history of CAD. Patient had mild anxiety and shortness of breath associated with the episode. Past medical history as stated above significant for hypertension dyslipidemia vitamin D deficiency history of prior CVA. Past surgical history significant for cholecystectomy and PTCA stenting of left circumflex coronary artery and left PDA. Allergic allergic to penicillin and Benadryl. Family history noncontributory social history quit smoking 25 years ago 50-pack- year history of smoking. Review of Systems - Review of Systems Systems not reviewed;Unavailable: Acuity of Condition - Constitutional Constitutional: As Per HPI - EENT Eyes: As Per HPI Ears: As Per HPI Nose/Mouth/Throat: As Per HPI - Cardiovascular Cardiovascular: As Per HPI - Respiratory Respiratory: As Per HPI - Gastrointestinal Gastrointestinal: As Per HPI - Genitourinary Genitourinary: As Per HPI - Reproductive: Male Reproductive:Male: As Per HPI - Musculoskeletal Musculoskeletal: As Per HPI - Integumentary Integumentary: As Per HPI - Neurological Neurological: As Per HPI - Psychiatric Psychiatric: As Per HPI - Endocrine Endocrine: As Per HPI - Hematologic/Lymphatic Hematologic: As Per HPI Past Patient History - Infectious Disease Hx of Infectious Diseases: None - Past Medical History & Family History Past Medical History?: Yes - Past Social History Smoking Status: Former Smoker - CARDIAC Hx Hypercholesterolemia: Yes Hx Hypertension: Yes - PULMONARY Hx Respiratory Disorders: No - NEUROLOGICAL Hx Neurological Disorder: Yes HX Cerebrovascular Accident: Yes (2006) - HEENT Hx HEENT Problems: No - RENAL Hx Chronic Kidney Disease: No - ENDOCRINE/METABOLIC Hx Endocrine Disorders: No - HEMATOLOGICAL/ONCOLOGICAL Hx Blood Disorders: No - INTEGUMENTARY Hx Dermatological Problems: No - MUSCULOSKELETAL/RHEUMATOLOGICAL Hx Arthritis: Yes - GASTROINTESTINAL Hx Gastrointestinal Disorders: No - GENITOURINARY/GYNECOLOGICAL Hx Genitourinary Disorders: No - PSYCHIATRIC Hx Substance Use: No - SURGICAL HISTORY Hx Cholecystectomy: Yes Hx Tonsillectomy: Yes - ANESTHESIA Hx Anesthesia: Yes Hx Anesthesia Reactions: No Hx Malignant Hyperthermia: No Meds Home Medications: Home Medication List Medication Instructions Recorded Confirmed Type Aspirin [Ecotrin] 81 mg PO DAILY #30 tabec 12/25/17 Rx Clopidogrel [Plavix] 75 mg PO DAILY #30 tab 12/25/17 Rx Ergocalciferol (Vitamin D2) 2,000 unit PO DAILY #30 tablet 12/25/17 Rx [Vitamin D2] Famotidine [Pepcid] 40 mg PO DAILY #30 tab 12/25/17 Rx Lisinopril [Zestril] 2.5 mg PO DAILY #30 tab 12/25/17 Rx Metoprolol Succinate XL [Toprol XL] 12.5 mg PO DAILY #30 tab 12/25/17 Rx Rosuvastatin Calcium [Crestor] 20 mg PO HS #30 tab 12/25/17 Rx Tamsulosin [Flomax] 0.4 mg PO DAILY #30 cap 12/25/17 Rx Allergies/Adverse Reactions: Allergies Allergy/AdvReac Type Severity Reaction Status Date / Time Penicillins Allergy ANAPHYLAXIS Verified 12/24/17 20:46 diphenhydramine AdvReac Verified 12/24/17 20:46 [From Benadryl] - Medications Medications: Current Medications Aspirin (Ecotrin) 81 mg PO DAILY [facility] Last Admin: 12/25/17 09:22 Dose: 81 mg Clopidogrel Bisulfate (Plavix) 75 mg PO DAILY [facility] Last Admin: 12/25/17 09:26 Dose: 75 mg Enoxaparin Sodium (Lovenox) 40 mg SC DAILY [facility] Last Admin: 12/25/17 09:22 Dose: 40 mg Home Med (Ergocalciferol (Vitamin D2) [Vitamin D2]) 2,000 unit PO DAILY [facility] Last Admin: 12/25/17 09:23 Dose: 2,000 unit Lisinopril (Zestril) 2.5 mg PO DAILY [facility] Last Admin: 12/25/17 09:22 Dose: 2.5 mg Metoprolol Succinate (Toprol Xl) 12.5 mg PO DAILY [facility] Last Admin: 12/25/17 09:23 Dose: 12.5 mg Rosuvastatin Calcium (Crestor) 20 mg PO HS [facility] Tamsulosin HCl (Flomax) 0.4 mg PO DAILY [facility] Last Admin: 12/25/17 09:22 Dose: 0.4 mg Physical Exam - Constitutional Appears: Well - Head Exam Head Exam: ATRAUMATIC, NORMAL INSPECTION, NORMOCEPHALIC - Eye Exam Eye Exam: EOMI, Normal appearance, PERRL Pupil Exam: NORMAL ACCOMODATION, PERRL - ENT Exam ENT Exam: Mucous Membranes Moist, Normal Exam - Neck Exam Neck exam: Positive for: Normal Inspection - Respiratory Exam Respiratory Exam: Clear to Auscultation Bilateral, NORMAL BREATHING PATTERN - Cardiovascular Exam Cardiovascular Exam: REGULAR RHYTHM, RRR, +S1, +S2, Systolic Murmur - GI/Abdominal Exam GI & Abdominal Exam: Normal Bowel Sounds, Soft. absent: Tenderness - Extremities Exam Extremities exam: Positive for: normal inspection - Back Exam Back exam: NORMAL INSPECTION - Neurological Exam Neurological exam: Alert, CN II-XII Intact, Normal Gait, Oriented x3, Reflexes Normal - Psychiatric Exam Psychiatric exam: Normal Affect, Normal Mood - Skin Skin Exam: Dry, Intact, Normal Color, Warm Results - Vital Signs Recent Vital Signs: Last Vital Signs Temp 97.8 F 12/25/17 15:00 Pulse 62 12/25/17 16:17 Resp 18 12/25/17 15:00 BP 107/57 L 12/25/17 19:11 Pulse Ox 96 12/25/17 15:00 - Labs Result Diagrams: 12/25/17 07:01 12/25/17 06:59 Labs: Laboratory Results - last 24 hr 12/24/17 12/24/17 12/24/17 14:45 21:09 21:09 WBC 6.3 RBC 4.35 L Hgb 13.7 Hct 40.1 MCV 92.2 MCH 31.6 H MCHC 34.3 RDW 14.0 Plt Count 131 MPV 10.3 Neut % (Auto) 75.0 Lymph % (Auto) 17.5 L [place] % (Auto) 6.1 Eos % (Auto) 0.8 Baso % (Auto) 0.6 Neut # (Auto) 4.7 Lymph # (Auto) 1.1 [place] # (Auto) 0.4 Eos # (Auto) 0.1 Baso # (Auto) 0.0 PT 12.4 H INR 1.1 APTT 36 H Sodium Potassium Chloride Carbon Dioxide Anion Gap BUN Creatinine Est GFR ( Amer) Est GFR (Non-Af Amer) Random Glucose Calcium Phosphorus Magnesium Total Bilirubin AST ALT Alkaline Phosphatase Total Creatine Kinase CK-MB (Mass) Troponin I Total Protein Albumin Globulin Albumin/Globulin Ratio Urine Color Yellow Urine Clarity Clear Urine pH 5.0 Ur Specific [place] 1.015 Urine Protein Negative Urine Glucose (UA) Normal Urine Ketones Trace Urine Blood Negative Urine Nitrate Negative Urine Bilirubin Negative Urine Urobilinogen Normal Ur Leukocyte Esterase Neg Urine WBC (Auto) 1 Urine RBC (Auto) 2 12/24/17 12/25/17 12/25/17 21:09 02:19 06:59 WBC RBC Hgb Hct MCV MCH MCHC RDW Plt Count MPV Neut % (Auto) Lymph % (Auto) [place] % (Auto) Eos % (Auto) Baso % (Auto) Neut # (Auto) Lymph # (Auto) [place] # (Auto) Eos # (Auto) Baso # (Auto) PT INR APTT Sodium 139 141 Potassium 3.9 3.6 Chloride 100 103 Carbon Dioxide 27 26 Anion Gap 16 16 BUN 21 H 19 Creatinine 0.9 0.8 Est GFR ( Amer) > 60 > 60 Est GFR (Non-Af Amer) > 60 > 60 Random Glucose 147 H 76 Calcium 8.5 L 9.5 Phosphorus 3.8 Magnesium 2.2 Total Bilirubin 0.7 0.9 AST 23 27 ALT 24 31 Alkaline Phosphatase 53 59 Total Creatine Kinase 80 CK-MB (Mass) 0.98 Troponin I 0.0350 0.0500 Total Protein 6.5 6.7 Albumin 4.1 4.0 Globulin 2.5 2.7 Albumin/Globulin Ratio 1.7 1.5 Urine Color Urine Clarity Urine pH Ur Specific [place] Urine Protein Urine Glucose (UA) Urine Ketones Urine Blood Urine Nitrate Urine Bilirubin Urine Urobilinogen Ur Leukocyte Esterase Urine WBC (Auto) Urine RBC (Auto) 12/25/17 12/25/17 07:01 11:31 WBC 5.0 RBC 4.34 L Hgb 13.9 Hct 40.5 MCV 93.2 MCH 32.1 H MCHC 34.5 RDW 14.0 Plt Count 130 MPV 10.7 Neut % (Auto) 53.3 Lymph % (Auto) 35.2 [place] % (Auto) 6.5 Eos % (Auto) 2.9 Baso % (Auto) 2.1 H Neut # (Auto) 2.7 Lymph # (Auto) 1.8 [place] # (Auto) 0.3 Eos # (Auto) 0.1 Baso # (Auto) 0.1 PT INR APTT Sodium Potassium Chloride Carbon Dioxide Anion Gap BUN Creatinine Est GFR ( Amer) Est GFR (Non-Af Amer) Random Glucose Calcium Phosphorus Magnesium Total Bilirubin AST ALT Alkaline Phosphatase Total Creatine Kinase 63 CK-MB (Mass) 0.91 Troponin I 0.0590 Total Protein Albumin Globulin Albumin/Globulin Ratio Urine Color Urine Clarity Urine pH Ur Specific [place] Urine Protein Urine Glucose (UA) Urine Ketones Urine Blood Urine Nitrate Urine Bilirubin Urine Urobilinogen Ur Leukocyte Esterase Urine WBC (Auto) Urine RBC (Auto) Assessment & Plan (1) CAD (coronary artery disease) Assessment and Plan: atypical CP , pleuritic in nature ACS ruled out plan for ETT in am npo p mn cont dapt cont bb, acei, statins Status: Acute (2) Chest pain Assessment and Plan: CONOR ETT in am Status: Acute Priority: High Onset Date: ~12/24/17 (3) History of hyperlipidemia Status: Acute (4) Stable angina Status: Acute (5) HLD (hyperlipidemia) Status: Chronic Priority: Medium (6) History of CVA (cerebrovascular accident) Status: Chronic Priority: Medium (7) Hypertension Status: Chronic Priority: Medium
--- NOTE | 2017-12-26 00:23 | CARD ---
APPROVED REPORT EKG Measurement Heart [id number] <Conclusion> Normal sinus rhythm Normal ECG
--- NOTE | 2017-12-26 04:36 | CP.PCM.PN ---
Subjective - Date & Time of Evaluation Date of Evaluation: 12/26/17 Time of Evaluation: 07:30 - Subjective Subjective: Subjective: Patient seen and examined at bedside. No acute events overnight. Patient's HR elevated to 160bpm while brushing his teeth. HR returned to 60-70bpm upon resting. Offers no new complaints at this time. Denies chest pain, SOB, palpitations. Physical Examination: - Constitutional Appears: Well - Head Exam Head Exam: ATRAUMATIC, NORMAL INSPECTION, NORMOCEPHALIC - Eye Exam Eye Exam: EOMI, Normal appearance, PERRL Pupil Exam: NORMAL ACCOMODATION, PERRL - ENT Exam ENT Exam: Mucous Membranes Moist, Normal Exam - Neck Exam Neck exam: Positive for: Normal Inspection - Respiratory Exam Respiratory Exam: Clear to Auscultation Bilateral, NORMAL BREATHING PATTERN - Cardiovascular Exam Cardiovascular Exam: REGULAR RHYTHM, RRR, +S1, +S2, Systolic Murmur - GI/Abdominal Exam GI & Abdominal Exam: Normal Bowel Sounds, Soft. absent: Tenderness - Extremities Exam Extremities exam: Positive for: normal inspection - Back Exam Back exam: NORMAL INSPECTION - Neurological Exam Neurological exam: Alert, CN II-XII Intact, Normal Gait, Oriented x3, Reflexes Normal - Psychiatric Exam Psychiatric exam: Normal Affect, Normal Mood - Skin Skin Exam: Dry, Intact, Normal Color, Warm Assessment and Plan: Patient is a 62 year old male with a PMH of NSTEMI w/ LENA x 2 (Sep 2017), CAD, HLD, HTN, CVA, BPH who was admitted for evaluation and treatment of chest pain and palpitations. Treated with ASA 325mg PO in ED. Chest pain; History of NSTEMI - EKG reviewed and appreciated 12/25/2017- Sinus Bradycardia, low voltage qrs, HR 57 bpm, Qtc 418ms, T wave inversions in lead III and AVF - recent PCI intervention in 09/2017 w/ LENA x 2 w/ Dr. 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 Maria in 2 weeks Palpitations - EKG reviewed and appreciated 12/25/2017- Sinus Bradycardia, low voltage qrs, HR 57 bpm, Qtc 418ms, T wave inversions in lead III and AVF - no events on telemetry overnight History of Hypertension - BP reviewed, trended, and appreciated- goal SBP 90-150mmHg, DBP 90-100mmHg - Continue home medications: Zestril 2.5mg PO daily - continue with Heart healthy diet w/ low salt History of Hyperlipidemia - lipid panel reviewed from 11/22/2017- TAG, CHL, LDL, and HDL WNL - continue with Crestor 20mg PO daily History of CVA (cerebrovascular accident) - c/w Plavix 75mg PO QD History of benign prostatic hyperplasia - c/w Flomax 0.4mg PO daily - further management as per primary History of vitamin D deficiency - c/w Ergocalciferal (vitamin D2) PO daily - further management as per primary Prophylactic measure - DVT: SCDs - GI: not indicated - c/w Heart healthy diet Patient case will be discussed with attending physician, Dr. Maria. Objective - Vital Signs/Intake and Output Vital Signs (last 24 hours): Temp Pulse Resp BP Pulse Ox 97.6 F 48 L 20 97/52 L 96 12/25/17 23:00 12/26/17 00:00 12/25/17 23:00 12/25/17 23:00 12/25/17 23:00 Intake and Output: 12/25/17 12/26/17 18:59 06:59 Intake Total 300 300 Balance 300 300 - Medications Medications: Current Medications Aspirin (Ecotrin) 81 mg PO DAILY [facility] Last Admin: 12/25/17 09:22 Dose: 81 mg Clopidogrel Bisulfate (Plavix) 75 mg PO DAILY [facility] Last Admin: 12/25/17 09:26 Dose: 75 mg Enoxaparin Sodium (Lovenox) 40 mg SC DAILY [facility] Last Admin: 12/25/17 09:22 Dose: 40 mg Home Med (Ergocalciferol (Vitamin D2) [Vitamin D2]) 2,000 unit PO DAILY [facility] Last Admin: 12/25/17 09:23 Dose: 2,000 unit Lisinopril (Zestril) 2.5 mg PO DAILY [facility] Last Admin: 12/25/17 09:22 Dose: 2.5 mg Metoprolol Succinate (Toprol Xl) 12.5 mg PO DAILY [facility] Last Admin: 12/25/17 09:23 Dose: 12.5 mg Rosuvastatin Calcium (Crestor) 20 mg PO [facility] Last Admin: 12/25/17 21:09 Dose: 20 mg Tamsulosin HCl (Flomax) 0.4 mg PO DAILY [facility] Last Admin: 12/25/17 09:22 Dose: 0.4 mg - Labs Labs: 12/25/17 07:01 12/25/17 06:59 PT 12.4 SECONDS (9.7-12.2) H 12/24/17 21:09 INR 1.1 12/24/17 21:09 APTT 36 SECONDS (21-34) H 12/24/17 21:09
[2017-12-26 07:40] LABS: BASO % 0.6 % (0.0-2.0); EOS # 0.2 K/uL (0.0-0.7); EOS % 4.2 % (0.0-4.0); HEMOGLOBIN 13.4 g/dL (12.0-18.0); LYMPH # 1.5 K/uL (1.0-4.3); LYMPH % 31.1 % (20.0-40.0); MEAN CELL VOLUME 93.1 fL (80.0-94.0); MEAN CORPUSCULAR HGB CONC 34.4 g/dL (33.0-37.0); MEAN PLATELET VOLUME 11.1 fL (7.2-11.7); MONO # 0.4 K/uL (0.0-0.8); MONO % 7.5 % (0.0-10.0); NEUT # 2.7 K/uL (1.8-7.0); NEUT % 56.6 % (50.0-75.0); NRBC % 0.1 % (0.0-2.0); RBC 4.18 Mil/uL (4.40-5.90); RED CELL DISTRIBUTION WIDTH 14.1 % (11.5-14.5); WHITE BLOOD COUNT 4.8 K/uL (4.8-10.8)
[2017-12-26] MEDS: ERGOCALCIFEROL 2000 UNIT PO SCH (09:08)
[2017-12-26] MEDS: Enoxaparin 40 mg Syringe SC SCH (09:09)
[2017-12-26] MEDS: Metoprolol Succinate 12.5 mg XL PO SCH (09:11)
[2017-12-26 09:27] LABS: ALB/GLOB RATIO 1.3 (1.0-2.1); ALBUMIN 3.3 g/dL (3.5-5.0); ALT/SGPT 25 U/L (21-72); AST/SGOT 18 U/L (17-59); BLOOD UREA NITROGEN 16 mg/dL (9-20); CALCIUM 8.5 mg/dl (8.6-10.4); GFR AFRICAN-AMERICAN > 60; GFR NON-AFRICAN AMERICAN > 60; MAGNESIUM 1.9 mg/dL (1.6-2.3)
[2017-12-26 14:19] VITALS: O2SAT 97
--- NOTE | 2017-12-26 15:27 | CP.PCM.DIS ---
<Yolis Donato - Last Filed: 12/26/17 15:20> Provider - Provider Date of Admission: 12/24/17 22:00 Attending physician: Mono Mata MD Time Spent in preparation of Discharge (in minutes): 55 Hospital Course - Lab Results Lab Results: Most Recent Lab Values WBC 4.8 K/uL (4.8-10.8) 12/26/17 07:12 RBC 4.18 Mil/uL (4.40-5.90) L 12/26/17 07:12 Hgb 13.4 g/dL (12.0-18.0) 12/26/17 07:12 Hct 38.9 % (35.0-51.0) 12/26/17 07:12 MCV 93.1 fL (80.0-94.0) 12/26/17 07:12 MCH 32.0 pg (27.0-31.0) H 12/26/17 07:12 MCHC 34.4 g/dL (33.0-37.0) 12/26/17 07:12 RDW 14.1 % (11.5-14.5) 12/26/17 07:12 Plt Count 120 K/uL (130-400) L 12/26/17 07:12 MPV 11.1 fL (7.2-11.7) 12/26/17 07:12 Neut % (Auto) 56.6 % (50.0-75.0) 12/26/17 07:12 Lymph % (Auto) 31.1 % (20.0-40.0) 12/26/17 07:12 [place] % (Auto) 7.5 % (0.0-10.0) 12/26/17 07:12 Eos % (Auto) 4.2 % (0.0-4.0) H 12/26/17 07:12 Baso % (Auto) 0.6 % (0.0-2.0) 12/26/17 07:12 Neut # (Auto) 2.7 K/uL (1.8-7.0) 12/26/17 07:12 Lymph # (Auto) 1.5 K/uL (1.0-4.3) 12/26/17 07:12 [place] # (Auto) 0.4 K/uL (0.0-0.8) 12/26/17 07:12 Eos # (Auto) 0.2 K/uL (0.0-0.7) 12/26/17 07:12 Baso # (Auto) 0.0 K/uL (0.0-0.2) 12/26/17 07:12 PT 12.4 SECONDS (9.7-12.2) H 12/24/17 21:09 INR 1.1 12/24/17 21:09 APTT 36 SECONDS (21-34) H 12/24/17 21:09 Sodium 142 mmol/L (132-148) 12/26/17 07:12 Potassium 3.7 mmol/L (3.6-5.2) 12/26/17 07:12 Chloride 104 mmol/L (98-107) 12/26/17 07:12 Carbon Dioxide 27 mmol/L (22-30) 12/26/17 07:12 Anion Gap 14 (10-20) 12/26/17 07:12 BUN 16 mg/dL (9-20) 12/26/17 07:12 Creatinine 0.8 mg/dL (0.8-1.5) 12/26/17 07:12 Est GFR ( Amer) > 60 12/26/17 07:12 Est GFR (Non-Af Amer) > 60 12/26/17 07:12 Random Glucose 84 mg/dL (75-110) 12/26/17 07:12 Calcium 8.5 mg/dl (8.6-10.4) L 12/26/17 07:12 Phosphorus 3.5 mg/dL (2.5-4.5) 12/26/17 07:12 Magnesium 1.9 mg/dL (1.6-2.3) 12/26/17 07:12 Total Bilirubin 0.6 mg/dL (0.2-1.3) 12/26/17 07:12 AST 18 U/L (17-59) 12/26/17 07:12 ALT 25 U/L (21-72) 12/26/17 07:12 Alkaline Phosphatase 55 U/L (38-126) 12/26/17 07:12 Total Creatine Kinase 63 U/L (55-170) 12/25/17 11:31 CK-MB (Mass) 0.91 ng/mL (0.0-3.38) 12/25/17 11:31 Troponin I 0.0590 ng/mL (0.00-0.120) 12/25/17 11:31 Total Protein 6.0 g/dL (6.3-8.3) L 12/26/17 07:12 Albumin 3.3 g/dL (3.5-5.0) L 12/26/17 07:12 Globulin 2.6 gm/dL (2.2-3.9) 12/26/17 07:12 Albumin/Globulin Ratio 1.3 (1.0-2.1) 12/26/17 07:12 Urine Color Yellow (YELLOW) 12/24/17 14:45 Urine Clarity Clear (Clear) 12/24/17 14:45 Urine pH 5.0 (5.0-8.0) 12/24/17 14:45 Ur Specific [place] 1.015 (1.003-1.030) 12/24/17 14:45 Urine Protein Negative mg/dL (NEGATIVE) 12/24/17 14:45 Urine Glucose (UA) Normal mg/dL (Normal) 12/24/17 14:45 Urine Ketones Trace mg/dL (NEGATIVE) 12/24/17 14:45 Urine Blood Negative (NEGATIVE) 12/24/17 14:45 Urine Nitrate Negative (NEGATIVE) 12/24/17 14:45 Urine Bilirubin Negative (NEGATIVE) 12/24/17 14:45 Urine Urobilinogen Normal mg/dL (0.2-1.0) 12/24/17 14:45 Ur Leukocyte Esterase Neg Dona/uL (Negative) 12/24/17 14:45 Urine WBC (Auto) 1 /hpf (0-5) 12/24/17 14:45 Urine RBC (Auto) 2 /hpf (0-3) 12/24/17 14:45 - Hospital Course Hospital Course: Upon Admission: CC: Chest pain and palpitations HPI: Patient is a 62 year old Slovenian-speaking male with a PMH of NSTEMI w/ LENA x 2 (Sep 2017), CAD, HLD, HTN, CVA, BPH who presents complaining of chest pain and palpitations. Patient states that he was walking outside with his at 7:30pm today, when he felt onset of chest pain described as left sided, nonradiating, constant, 8-9 /10 at worst, non-pleuritic, non-positional, accompanied by palpitations in his chest and anxiety because he felt that he was "going to ." Patient only describes the pain as feeling like he is "tired" and like he's "going up a hill. " After onset of pain, patient told his that they should go to the hospital so they took a train (patient does not drive). Patient was sitting on the train for 40 minutes and thus cannot identify if the pain was made worse with exertion. After standing up on the train, patient expelled a lot of gas from his mouth and felt a 20% relief of pain. He did not take any medications for the pain prior to coming to the ED. Pain was improved with rest and medication in the ED. At present, patient denies chest pain or palpitations. Patient notes that he has seen his level designer Dr. Maria twice since being discharged in September after NSTEMI and PCI with 2 LENA. He has been compliant with all medications, exactly as prescribed, as written below. PMD: Clinic (Dr. Alas) Cardio: Dr. Maria PMH: NSTEMI (Sep 2017) w/ 2 LENA, CAD, CVA (6-7 years ago; residual difficulty with word finding), HLD, HTN, BPH, impaired glucose tolerance, Vitamin D deficiency PSH: Cardiac catheterization with LENA x 2 (September 2017), laparoscopic cholecystectomy (2011), per chart review: malachi (1984) Medications: Crestor 20mg PO daily; Toprol 12.5mg PO daily, Plavix 75mg PO daily , Flomax 0.4mg PO daily; Zestril 2.5mg PO daily, Lasix 20mg PO daily, Ergocalciferol (Vitamin D2) PO daily, Aspirin 81mg PO daily Allergies: Penicillin (anaphylaxis), benadryl (questionable--makes BP go down) Family History: Father-DM; Mother-HTN; no known family history of [place]/CAD Social History: lives with ; former 40 pack year smoker, quit 30 years ago; denies ETOH; denies recreational drug use Throughout Hospital Course: Patient was admitted for chest pain r/o ACS. Chest pain r/o ACS Assessment and Plan: Patient has history of NSTEMI, recent PCI intervention in 09/2017 w/ LENA x 2 w/ Dr Maria Consult placed to level designer Dr. 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 Maria in 2 weeks Continue home medications: Plavix 75mg PO daily Aspirin 81mg PO daily Crestor 20mg PO daily Toprol 12.5mg PO daily Palpitations Assessment and Plan: Consult placed to level designer Dr. 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 or T waves changes noted grill cook Patient had 12 beats of VTACH History of hypertension Assessment and Plan: BP borderline low Continue home medications: Zestril 2.5mg PO daily HOLD home med Lasix 20mg PO daily - WILL DISCONTINUE USE- Patient to start taking IMDUR 30mg PO daily History of hyperlipidemia Assessment and Plan: Heart healthy diet w/ low salt Continue home medications: Crestor 20mg PO daily History of CVA (cerebrovascular accident) Assessment and Plan: No residual deficits noted Cont home med Plavix 75mg PO QD History of benign prostatic hyperplasia Assessment and Plan: Continue home medications: Flomax 0.4mg PO daily History of vitamin D deficiency Assessment and Plan: As per medical record Continue home medications: Ergocalciferal (vitamin D2) PO daily Please review EMR for full record. Discharge Exam - Head Exam Head Exam: ATRAUMATIC, NORMAL INSPECTION, NORMOCEPHALIC - Eye Exam Eye Exam: EOMI, Normal appearance, PERRL Pupil Exam: NORMAL ACCOMODATION - ENT Exam ENT Exam: Mucous Membranes Moist, Normal Exam - Respiratory Exam Respiratory Exam: Clear to PA & Lateral, NORMAL BREATHING PATTERN - Cardiovascular Exam Cardiovascular Exam: REGULAR RHYTHM, RRR, +S1, +S2 - GI/Abdominal Exam GI & Abdominal Exam: Normal Bowel Sounds, Soft. absent: Tenderness - Extremities Exam Extremities exam: normal inspection, pedal pulses present - Neurological Exam Neurological exam: Alert, CN II-XII Intact, Normal Gait, Oriented x3 - Psychiatric Exam Psychiatric exam: Normal Affect, Normal Mood - Skin Skin Exam: Dry, Intact, Normal Color, Warm Discharge Plan - Discharge Medications Prescriptions: Aspirin [Ecotrin] 81 mg PO DAILY #30 tabec Clopidogrel [Plavix] 75 mg PO DAILY #30 tab Ergocalciferol (Vitamin D2) [Vitamin D2] 2,000 unit PO DAILY #30 tablet Famotidine [Pepcid] 40 mg PO DAILY #30 tab Isosorbide Mononitrate ER [Imdur ER] 30 mg PO DAILY 14 Days #14 tab Lisinopril [Zestril] 2.5 mg PO DAILY #30 tab Metoprolol Succinate XL [Toprol XL] 12.5 mg PO DAILY #30 tab Rosuvastatin Calcium [Crestor] 20 mg PO HS #30 tab Tamsulosin [Flomax] 0.4 mg PO DAILY #30 cap - Follow Up Plan Condition: FAIR Disposition: HOME/ ROUTINE Instructions: Chest Pain, Coronary Heart Disease (DC), Lowering Your Risk of Heart Disease, Palpitations (DC) Additional Instructions: Please continue your current medications. You will also be taking Pepcid 40mg by mouth daily to help with the acid reflux symptoms you have. You will also be taking IMDUR 30mg by mouth daily. PLEASE DO NOT TAKE lasix (furosemide 20mg by mouth twice a day anymore due to your low blood pressure. Please follow up with Dr. Maria the level designer as recommended. You have a follow up appointment already scheduled for this Saturday, please attend that appointment. Please also follow up with your Primary Care Doctor. ---- Por favor contine con marely medicamentos actuales. [place] Pepcid 40mg por va oral diariamente para ayudar con los sntomas de reflujo cido que tiene. [place] IMDUR 30 mg por va oral diariamente. POR FAVOR NO TOME LASIX (furosemida 20 mg por va oral dos veces al da debido a dominguez presin arterial baja). Por favor gab un seguimiento con el Dr. Maria cardilogo segn lo recomendado. Usted tiene hunter bulmaro de seguimiento ya programada para shelly viernes, por favor asista a noe bulmaro. Por favor, tambin gab un seguimiento con dominguez mdico de atencin primaria. Referrals: [facility] [Outside] Tyrone Maria MD [Staff Provider] - <Jose JSharathjose - Last Filed: 12/26/17 16:01> Provider - Provider Date of Admission: 12/24/17 22:00 Attending physician: Mono Mata MD Hospital Course - Lab Results Lab Results: Most Recent Lab Values WBC 4.8 K/uL (4.8-10.8) 12/26/17 07:12 RBC 4.18 Mil/uL (4.40-5.90) L 12/26/17 07:12 Hgb 13.4 g/dL (12.0-18.0) 12/26/17 07:12 Hct 38.9 % (35.0-51.0) 12/26/17 07:12 MCV 93.1 fL (80.0-94.0) 12/26/17 07:12 MCH 32.0 pg (27.0-31.0) H 12/26/17 07:12 MCHC 34.4 g/dL (33.0-37.0) 12/26/17 07:12 RDW 14.1 % (11.5-14.5) 12/26/17 07:12 Plt Count 120 K/uL (130-400) L 12/26/17 07:12 MPV 11.1 fL (7.2-11.7) 12/26/17 07:12 Neut % (Auto) 56.6 % (50.0-75.0) 12/26/17 07:12 Lymph % (Auto) 31.1 % (20.0-40.0) 12/26/17 07:12 [place] % (Auto) 7.5 % (0.0-10.0) 12/26/17 07:12 Eos % (Auto) 4.2 % (0.0-4.0) H 12/26/17 07:12 Baso % (Auto) 0.6 % (0.0-2.0) 12/26/17 07:12 Neut # (Auto) 2.7 K/uL (1.8-7.0) 12/26/17 07:12 Lymph # (Auto) 1.5 K/uL (1.0-4.3) 12/26/17 07:12 [place] # (Auto) 0.4 K/uL (0.0-0.8) 12/26/17 07:12 Eos # (Auto) 0.2 K/uL (0.0-0.7) 12/26/17 07:12 Baso # (Auto) 0.0 K/uL (0.0-0.2) 12/26/17 07:12 PT 12.4 SECONDS (9.7-12.2) H 12/24/17 21:09 INR 1.1 12/24/17 21:09 APTT 36 SECONDS (21-34) H 12/24/17 21:09 Sodium 142 mmol/L (132-148) 12/26/17 07:12 Potassium 3.7 mmol/L (3.6-5.2) 12/26/17 07:12 Chloride 104 mmol/L (98-107) 12/26/17 07:12 Carbon Dioxide 27 mmol/L (22-30) 12/26/17 07:12 Anion Gap 14 (10-20) 12/26/17 07:12 BUN 16 mg/dL (9-20) 12/26/17 07:12 Creatinine 0.8 mg/dL (0.8-1.5) 12/26/17 07:12 Est GFR ( Amer) > 60 12/26/17 07:12 Est GFR (Non-Af Amer) > 60 12/26/17 07:12 Random Glucose 84 mg/dL (75-110) 12/26/17 07:12 Calcium 8.5 mg/dl (8.6-10.4) L 12/26/17 07:12 Phosphorus 3.5 mg/dL (2.5-4.5) 12/26/17 07:12 Magnesium 1.9 mg/dL (1.6-2.3) 12/26/17 07:12 Total Bilirubin 0.6 mg/dL (0.2-1.3) 12/26/17 07:12 AST 18 U/L (17-59) 12/26/17 07:12 ALT 25 U/L (21-72) 12/26/17 07:12 Alkaline Phosphatase 55 U/L (38-126) 12/26/17 07:12 Total Creatine Kinase 63 U/L (55-170) 12/25/17 11:31 CK-MB (Mass) 0.91 ng/mL (0.0-3.38) 12/25/17 11:31 Troponin I 0.0590 ng/mL (0.00-0.120) 12/25/17 11:31 Total Protein 6.0 g/dL (6.3-8.3) L 12/26/17 07:12 Albumin 3.3 g/dL (3.5-5.0) L 12/26/17 07:12 Globulin 2.6 gm/dL (2.2-3.9) 12/26/17 07:12 Albumin/Globulin Ratio 1.3 (1.0-2.1) 12/26/17 07:12 Urine Color Yellow (YELLOW) 12/24/17 14:45 Urine Clarity Clear (Clear) 12/24/17 14:45 Urine pH 5.0 (5.0-8.0) 12/24/17 14:45 Ur Specific [place] 1.015 (1.003-1.030) 12/24/17 14:45 Urine Protein Negative mg/dL (NEGATIVE) 12/24/17 14:45 Urine Glucose (UA) Normal mg/dL (Normal) 12/24/17 14:45 Urine Ketones Trace mg/dL (NEGATIVE) 12/24/17 14:45 Urine Blood Negative (NEGATIVE) 12/24/17 14:45 Urine Nitrate Negative (NEGATIVE) 12/24/17 14:45 Urine Bilirubin Negative (NEGATIVE) 12/24/17 14:45 Urine Urobilinogen Normal mg/dL (0.2-1.0) 12/24/17 14:45 Ur Leukocyte Esterase Neg Dona/uL (Negative) 12/24/17 14:45 Urine WBC (Auto) 1 /hpf (0-5) 12/24/17 14:45 Urine RBC (Auto) 2 /hpf (0-3) 12/24/17 14:45 Attending/Attestation - Attestation I have personally seen and examined this patient.: Yes I have fully participated in the care of the patient.: Yes I have reviewed all pertinent clinical information, including history, physical exam and plan: Yes Notes (Text): Patient was seen and examined.Lying comfortable Patient had stress test today. Patient was recommended to d/c home by level designer Discharge medication as per level designer. d/w the resident I agree with the documentation of the resident's recommendation of the assessment and the plan
[2017-12-26 17:02] VITALS: BP 115/68; PULSE 72; RESP 18; TEMP 97.6
--- NOTE | 2017-12-26 19:06 | CARD ---
APPROVED REPORT EKG Measurement Heart [id number] <Conclusion> Sinus bradycardia Low voltage QRS ST & T wave abnormality, consider inferior ischemia Abnormal ECG
== END 2017-12-26 16:50 | disposition home or self-care (01) | DRG 132 ==
LOC: C.ER 20:38 → C.9E 22:00 → C.5S 23:18
PROVIDERS: ADMIT Family Medicine; ATTEND Family Medicine
DX: I25.118 Atherosclerotic heart disease of native coronary artery with other forms of angina pectoris (principal); I47.2 Ventricular tachycardia; E78.5 Hyperlipidemia, unspecified; F41.9 Anxiety disorder, unspecified; I10 Essential (primary) hypertension; I25.2 Old myocardial infarction; N40.0 Benign prostatic hyperplasia without lower urinary tract symptoms; Z86.73 Personal history of transient ischemic attack (TIA), and cerebral infarction without residual deficits; Z87.891 Personal history of nicotine dependence; Z88.0 Allergy status to penicillin; Z95.5 Presence of coronary angioplasty implant and graft

== ENCOUNTER 2018-05-05 07:54 | Emergency (ER) | payer OTHER ==
[2018-05-05 08:01] VITALS: BMI 25.8
[2018-05-05] MEDS ORDERED: MethylPREDNISolone 40 mg Vial IVP STA (08:22)
--- NOTE | 2018-05-05 08:22 | C.PDOC ---
History Of Present Illness VIA TRANS CO RECUR GEN RASH AND R CP SINCE LAST NIGHT. PS HO SIM PRIOR RASH 1 YR AGO. INITIAL ONSET SCALP THEN PROGRESSES DOWNWARD. +ASSOC ITCH. PS PREV RELIEVED W DRINKING WATER BUT NO IMPROVE THIS TIME AFTER DRINKING. RASH NOW IMPROVED BUT STILL RESIDUAL CHEST WALL. ALSO RECUR CP. ADMITTED 11/2017 FOR SAME. SP GI CLINIC 02/2018, +H PYLORI. PS COMPLETED ABX. CURRENT PAIN SIM TO PRIOR, FIRST TIME SINCE FINISHING ABX. CP NOW RESOLVED. NO SOB, NV, DIZZY. MH: NSTEMI (Sep 2017) w/ 2 LENA, CAD, CVA (6-7 years ago; residual difficulty with word finding), HLD, HTN, BPH, impaired glucose tolerance, Vitamin D deficiency PSH: Cardiac catheterization with LENA x 2 (September 2017), laparoscopic cholecystectomy (2011), per chart review: amygdala (1984) Allergies: Penicillin (anaphylaxis), benadryl (questionable--makes BP go down) Family History: Father-DM; Mother-HTN; no known family history of [place]/CAD Social History: lives with ; former 40 pack year smoker, quit 30 years ago; denies ETOH; denies recreational drug use Patient has history of NSTEMI, recent PCI intervention in 09/2017 w/ LENA x 2 w/ Dr Maria Consult placed to senior science consultant Dr. 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 NO EDEMA REMIANDER NEG MDM CP HO CAD, H PYLORI NOW RESOLVED. RO ACS; RECUR SKIN RASH, POSSIBLE RECUR HIVES. ALLERGY BENADRYL. STEROID, LABS, REASSESS Time Seen by Provider: 05/05/18 08:07 Chief Complaint (Nursing): Abnormal Skin Integrity History Per: Forms Designer Onset/Duration Of Symptoms: Days Current Symptoms Are (Timing): Still Present Severity: Moderate Past Medical History Reviewed: Historical Data, Nursing Documentation, Vital Signs Vital Signs: Last Vital Signs Temp 97.7 F 05/05/18 09:56 Pulse 60 05/05/18 09:56 Resp 18 05/05/18 09:56 BP 121/64 05/05/18 09:56 Pulse Ox 99 05/05/18 09:56 - Medical History PMH: Arthritis, HTN, Hypercholesterolemia Denies: Chronic Kidney Disease Surgical History: Cholecystectomy, Tonsillectomy - [facility] Procedures DILATION OF 2 COR ART WITH 2 DRUG-ELUT, PERC APPROACH (10/16/17) MEASURE OF CARDIAC SAMPL & PRESSURE, L HEART, PERC APPROACH (10/16/17) PLAIN RADIOGRAPHY OF LEFT HEART USING OTHER CONTRAST (10/16/17) PLAIN RADIOGRAPHY OF MULT COR ART USING OTH CONTRAST (10/16/17) Family History: States: No Known Family Hx - Social History Hx Alcohol Use: No Hx Substance Use: No - Immunization History Hx Tetanus Toxoid Vaccination: Yes Hx Influenza Vaccination: Yes Hx Pneumococcal Vaccination: Yes Review Of Systems Except As Marked, All Systems Reviewed And Found Negative. Constitutional: Negative for: Fever, Chills Cardiovascular: Positive for: Chest Pain (currently resolved) Respiratory: Negative for: Shortness of Breath Gastrointestinal: Negative for: Nausea, Vomiting Skin: Positive for: Rash Neurological: Negative for: Dizziness Physical Exam - Physical Exam Appears: Non-toxic Skin: Normal Color, Warm, Dry, Other (+ hives upper mid chest wall, blanching, no edema) Head: Atraumatic, Normacephalic Eye(s): bilateral: Normal Inspection Cardiovascular: Rhythm Regular Respiratory: Normal Breath Sounds, No Rales, No Rhonchi, No Wheezing Gastrointestinal/Abdominal: Normal Exam, Soft, No Tenderness, No Guarding, No Rebound Neurological/Psych: Oriented x3, Normal Speech ED Course And Treatment - Laboratory Results Result Diagrams: 05/05/18 08:45 05/05/18 08:45 ECG: Interpreted By Me ECG Rhythm: Sinus Bradycardia ECG Interpretation: Normal Rate From EC O2 Sat by Pulse Oximetry: 100 (RA) Pulse Ox Interpretation: Normal - Radiology CXR: Interpreted by Me CXR Interpretation: Yes: No Acute Disease Progress - Re-Evaluation Re-evaluation Note: 05/05/18 09:41 RASH IMPROVED, NO RECUR CP SINCE PRIOR EVAL. APPEARS COMFORTABLE NAD. HIVES RESOLVED. LABS, CXR, EKG WNL. PENDING CALLBACK DR MARIA 07/09/18 09:48 D/W DR MARIA AWARE OF ER FINDINGS, [facility] - Data Reviewed Data Reviewed: Lab, Diagnostic imaging, EKG, Old records Medical Decision Making Medical Decision Making: CP HO CAD, H PYLORI NOW RESOLVED. RO ACS; RECUR SKIN RASH, POSSIBLE RECUR HIVES. ALLERGY BENADRYL. STEROID, LABS, REASSESS Disposition Counseled Patient/Family Regarding: Studies Performed, Diagnosis, Need For Followup, Rx Given - Disposition Referrals: YOUR,PMD [Other] [facility] [Outside] [facility] [Outside] Disposition: HOME/ ROUTINE Disposition Time: 09:49 Condition: IMPROVED Prescriptions: predniSONE [Prednisone] 60 mg PO DAILY #12 tab Instructions: Chest Pain That Is Not Caused by the Heart (DC), Hives (DC) Forms: [employer] (Portuguese) Print Language: YORUBA - Clinical Impression Clinical Impression: Chest discomfort, Hives - Scribe Statement The provider has reviewed the documentation as recorded by the Elmer German Provider Attestation: All medical record entries made by the Elmer were at my direction and personally dictated by me. I have reviewed the chart and agree that the record accurately reflects my personal performance of the history, physical exam, medical decision making, and the department course for this patient. I have also personally directed, reviewed, and agree with the discharge instructions and disposition.
[2018-05-05] MEDS ORDERED: MethylPREDNISolone 40 mg Vial ONE (08:32)
[2018-05-05 09:08] LABS: BASO % 0.7 % (0.0-2.0); EOS # 0.1 K/uL (0.0-0.7); EOS % 2.3 % (0.0-4.0); HEMOGLOBIN 14.2 g/dL (12.0-18.0); LYMPH # 1.3 K/uL (1.0-4.3); LYMPH % 23.9 % (20.0-40.0); MEAN CELL VOLUME 96.5 fL (80.0-94.0); MEAN CORPUSCULAR HGB CONC 34.2 g/dL (33.0-37.0); MEAN PLATELET VOLUME 10.2 fL (7.2-11.7); MONO # 0.4 K/uL (0.0-0.8); MONO % 8.3 % (0.0-10.0); NEUT # 3.5 K/uL (1.8-7.0); NEUT % 64.8 % (50.0-75.0); RBC 4.3 Mil/uL (4.40-5.90); RED CELL DISTRIBUTION WIDTH 13.8 % (11.5-14.5); WHITE BLOOD COUNT 5.3 K/uL (4.8-10.8)
[2018-05-05 09:11] LABS: BLOOD UREA NITROGEN 24 mg/dL (9-20); GFR AFRICAN-AMERICAN > 60; GFR NON-AFRICAN AMERICAN > 60
--- NOTE | 2018-05-05 09:47 | RAD ---
HISTORY: COMPARISON: 12/24/2017. TECHNIQUE: Chest PA and lateral FINDINGS: LINES AND TUBES: None. LUNG AND PLEURA: The lungs are well inflated and clear. No pleural effusion or pneumothorax. HEART AND MEDIASTINUM: The heart is not enlarged. The hilar and mediastinal contours are within normal limits. SKELETAL STRUCTURES: The bony structures are within normal limits for the patient's age. VISUALIZED UPPER ABDOMEN: Normal. OTHER FINDINGS: None. IMPRESSION: No active pulmonary disease.
[2018-05-05 09:57] VITALS: BP 121/64; PULSE 60; RESP 18; TEMP 97.7
[2018-05-05 10:51] VITALS: O2SAT 100
--- NOTE | 2018-05-07 01:08 | CARD ---
APPROVED REPORT Date of service: 05/05/2018 EKG Measurement Heart [id number] <Conclusion> Sinus bradycardia with sinus arrhythmia Otherwise normal ECG
== END 2018-05-05 10:00 | disposition home or self-care (01) ==
LOC: C.ER 07:54
DX: R07.9 Chest pain, unspecified (principal); L50.9 Urticaria, unspecified; I25.10 Atherosclerotic heart disease of native coronary artery without angina pectoris; I10 Essential (primary) hypertension; E78.00 Pure hypercholesterolemia, unspecified; Z87.891 Personal history of nicotine dependence
CPT/HCPCS: 71046; 80048; 84484; 85025; 93005; 96374; 96375; 99284; C9113; J2920

== ENCOUNTER 2018-12-25 13:36 | Emergency (ER) | payer OTHER ==
[2018-12-25 13:41] VITALS: BMI 26.9
[2018-12-25] MEDS ORDERED: Iohexol 240 (50 ml) PO STA (15:00)
--- NOTE | 2018-12-25 15:04 | C.PDOC ---
History Of Present Illness 63 y/o male with a PMHx of HTN, IN last year, and CVA 10 years ago, presents complaining of right inguinal pain that started last night. Pain had sudden onset, associated with nausea, vomiting, and subjective fever and chills. He was able to reduce the hernia and pain improved. Today at 5:00am, the same pain recurred and was so severe it woke him. Patient was able to reduce it but is still having mild pain in the area. Patient states the hernia has been present for 1 year, but he was not a candidate for surgery due to cardiac hx. Currently patient denies any nausea, vomiting, fever, chills, chest pain, or SOB. Patient reports having daily stools, last BM was earlier today and was normal. Time Seen by Provider: 12/25/18 14:39 Chief Complaint (Nursing): Groin Pain History Per: Patient History/Exam Limitations: no limitations Onset/Duration Of Symptoms: Worse Since (last night, recurred 5:00am today) Current Symptoms Are (Timing): Still Present Location Of Pain/Discomfort: RLQ (and right groin) Quality Of Discomfort: Sharp, "Pain" Associated Symptoms: Other (Hernia). denies: Fever, Chills Past Medical History Reviewed: Historical Data, Nursing Documentation, Vital Signs Vital Signs: Last Vital Signs Temp 97.4 F L 12/25/18 13:41 Pulse 72 12/25/18 13:41 Resp 20 12/25/18 13:41 BP 134/72 12/25/18 13:41 Pulse Ox 98 12/25/18 13:41 - Medical History PMH: Arthritis, CVA (10 yrs ago), HTN, Hypercholesterolemia Denies: Chronic Kidney Disease Other PMH: Myocardial Infarction Surgical History: Cholecystectomy, Coronary Stent (x2), Tonsillectomy - [facility] Procedures DILATION OF 2 COR ART WITH 2 DRUG-ELUT, PERC APPROACH (10/16/17) MEASURE OF CARDIAC SAMPL & PRESSURE, L HEART, PERC APPROACH (10/16/17) PLAIN RADIOGRAPHY OF LEFT HEART USING OTHER CONTRAST (10/16/17) PLAIN RADIOGRAPHY OF MULT COR ART USING OTH CONTRAST (10/16/17) Family History: States: Unknown Family Hx - Social History Hx Alcohol Use: No Hx Substance Use: No - Immunization History Hx Tetanus Toxoid Vaccination: Yes Hx Influenza Vaccination: Yes Hx Pneumococcal Vaccination: Yes Review Of Systems Constitutional: Negative for: Fever, Sweats Cardiovascular: Negative for: Chest Pain Respiratory: Negative for: Shortness of Breath Gastrointestinal: Positive for: Abdominal Pain (right lower abdomen/groin). Negative for: Nausea, Vomiting Genitourinary: Positive for: Other (Right inguinal hernia) Musculoskeletal: Negative for: Back Pain Skin: Negative for: Rash Neurological: Negative for: Weakness, Numbness Physical Exam - Physical Exam Appears: Non-toxic, No Acute Distress, Other (Appears uncomfortable) Skin: Normal Color, Warm, Dry Head: Atraumatic, Normacephalic Eye(s): bilateral: Normal Inspection, PERRL, EOMI Neck: Normal ROM Chest: Symmetrical, No Tenderness Cardiovascular: Rhythm Regular, No Murmur, Other (Normal S1, S2) Respiratory: No Rales, No Rhonchi, No Wheezing, Other (Lungs CTA bilaterally) Gastrointestinal/Abdominal: Soft, No Distention, Hernia (Right inguinal hernia, reducible, mildly TTP) Back: Normal Inspection, No CVA Tenderness Extremity: Bilateral: Atraumatic, Normal Color And Temperature, Normal ROM Neurological/Psych: Oriented x3, Normal Speech ED Course And Treatment - Laboratory Results Result Diagrams: 12/25/18 15:24 12/25/18 15:24 O2 Sat by Pulse Oximetry: 98 (RA) Pulse Ox Interpretation: Normal - CT Scan/US CT Abd/Pelvis w/ PO Other Rad Studies (CT/US): Read By Radiologist, Radiology Report Reviewed CT/US Interpretation: Accession No. : [id number]. Patient Name / ID : LISS TROTTER / [id number]. Exam Date : 12/25/2018 17:31:39 ( Approved ). Study Comment : Sex / Age : M / 63Y. Creator : Shannon Garcia MD. Dictator : Shannon Garcia MD. Vp Integration : American Board Certified Orthotist : Shannon Garcia MD. Approver2 : Report Date : 12/25/2018 18:22:31. My Comment : . PROCEDURE: CT Abdomen and Pelvis without IV contrast. HISTORY: right inguinal hernia r/o incarceration. COMPARISON: Liver protocol CT performed 04/02/18. TECHNIQUE: Contiguous axial images of the abdomen and pelvis. Oral contrast was administered. No IV contrast given. Coronal and Sagittal reformats generated and reviewed. Radiation dose: Total exam DLP = 635.7 mGy-cm. This CT exam was performed using one or more of the following dose reduction techniques: Automated exposure control, adjustment of the mA and/or kV according to patient size, and/or use of iterative reconstruction technique. FINDINGS: There is limited evaluation of the solid organs without the administration of IV contrast. Examination limited by paucity of intra-abdominal and intrapelvic fat. LOWER THORAX: No visible consolidation, pleural effusion, or pneumothorax. Visualized portions of the heart appear within normal limits of s ize. LIVER: Hepatic calcifications, likely granulomas. GALLBLADDER AND BILE DUCTS: Cholecystectomy. PANCREAS: Unremarkable unenhanced appearance. ADRENALS: Unremarkable unenhanced appearance. KIDNEYS AND URETERS: No hydronephrosis or obstructing renal calculus. BLADDER: Thick-walled under distended urinary bladder. REPRODUCTIVE: Heterogeneous prostate gland appears enlarged. APPENDIX: No secondary signs of acute appendicitis. BOWEL: The stomach is nondistended. The bowel loops appear within normal limits of caliber without evidence of intestinal obstruction. Moderate to severe diffuse constipation. PERITONEUM: No significant free fluid. No definite free air. LYMPH NODES: No bulky lymphadenopathy identified. VASCULATURE: No aortic aneurysm. Dense atherosclerotic calcifications of the aorta and branches. BONES: Degenerative changes of the spine. OTHER FINDINGS: None. IMPRESSION: Right inguinal hernia containing fluid. Thick-walled under distended urinary bladder. Heterogeneous prostate gland appears enlarged. Recommend correlation with PSA. Moderate to severe diffuse constipation. Hepatic calcifications, likely granulomas. Additional findings as above. Progress Note: Labs ordered and reviewed. Will obtain CT Abdomen/Pelvis with PO contrast to rule out incarcerated hernia. Patient given 4 mg IV morphine for pain control. CT reviewed, shows fluid-containing inguinal hernia. No bowel obstruction. Spoke with medical surgical tech, reviewed CT report, advised patient be referred to Dr. Ramos for possible elective surgery. Disposition Counseled Patient/Family Regarding: Studies Performed, Diagnosis, Need For Followup, Rx Given - Disposition Referrals: Glenda Ramos MD [Staff Provider] - Disposition: HOME/ ROUTINE Disposition Time: 18:50 Condition: STABLE Additional Instructions: FOLLOW UP WITH GENERAL SURGEON WITHIN 1 WEEK USE MEDICATIONS DIRECTED RETURN TO EMERGENCY ROOM IF YOUR SYMPTOMS BECOME WORSE SEGUIR CON EL CIRUJANO GENERAL DENTRO DE 1 SEMANA UTILICE MEDICAMENTOS ALEXSANDER SE DIRIGE VUELVA A LA TOM DE EMERGENCIA SI OVIDIO SNTOMAS SE HACEN PEOR Prescriptions: Docusate [Colace] 100 mg PO DAILY #30 cap Naproxen 375 mg PO BID PRN #20 tablet PRN Reason: pain Instructions: Groin Hernia (DC), Constipation in Adults Forms: [employer] (Maltese) Print Language: SYRIAC - Clinical Impression Clinical Impression: Right inguinal hernia, Constipation - Scribe Statement The provider has reviewed the documentation as recorded by the [place] Provider Attestation: All medical record entries made by the Carteribmarleen were at my direction and personally dictated by me. I have reviewed the chart and agree that the record accurately reflects my personal performance of the history, physical exam, medical decision making, and the department course for this patient. I have also personally directed, reviewed, and agree with the discharge instructions and disposition.
[2018-12-25] MEDS ORDERED: Morphine 4 MG/ML VIAL ONE (15:12)
[2018-12-25] MEDS ORDERED: Iohexol 240 (50 ml) ONE (15:12)
[2018-12-25 15:28] LABS: VENOUS BLOOD GAS BASE EXCESS -0.3 mmol/L (0.0-2.0); VENOUS BLOOD GAS PCO2 38 mmHg (40-60); VENOUS BLOOD GAS PO2 58 mm/Hg (30-55); VENOUS BLOOD PH 7.41 (7.32-7.43)
[2018-12-25 15:31] LABS: BASO % 0.9 % (0.0-2.0); EOS # 0.1 K/uL (0.0-0.7); EOS % 1.1 % (0.0-4.0); HEMOGLOBIN 14.9 g/dL (12.0-18.0); LYMPH # 1.1 K/uL (1.0-4.3); LYMPH % 21.3 % (20.0-40.0); MEAN CELL VOLUME 98.3 fL (80.0-94.0); MEAN CORPUSCULAR HEMOGLOBIN 32.6 pg (27.0-31.0); MEAN CORPUSCULAR HGB CONC 33.1 g/dL (33.0-37.0); MEAN PLATELET VOLUME 9.9 fL (7.2-11.7); MONO # 0.4 K/uL (0.0-0.8); MONO % 8.3 % (0.0-10.0); NEUT # 3.4 K/uL (1.8-7.0); NEUT % 68.4 % (50.0-75.0); NRBC % 0.1 % (0.0-2.0); RBC 4.57 Mil/uL (4.40-5.90); RED CELL DISTRIBUTION WIDTH 13.6 % (11.5-14.5); WHITE BLOOD COUNT 4.9 K/uL (4.8-10.8)
[2018-12-25 15:47] LABS: ALB/GLOB RATIO 1.9 (1.0-2.1); ALBUMIN 4.5 g/dL (3.5-5.0); ALT/SGPT 29 U/L (21-72); AST/SGOT 29 U/L (17-59); BLOOD UREA NITROGEN 21 mg/dL (9-20); CALCIUM 8.8 mg/dl (8.6-10.4); GFR NON-AFRICAN AMERICAN > 60; LIPASE 75 U/L (23-300)
[2018-12-25 17:27] VITALS: RESP 16
--- NOTE | 2018-12-25 18:26 | CT ---
PROCEDURE: CT Abdomen and Pelvis without IV contrast. HISTORY: right inguinal hernia r/o incarceration COMPARISON: Liver protocol CT performed 04/02/18 TECHNIQUE: Contiguous axial images of the abdomen and pelvis. Oral contrast was administered. No IV contrast given. Coronal and Sagittal reformats generated and reviewed. Radiation dose: Total exam DLP = 635.7 mGy-cm. This CT exam was performed using one or more of the following dose reduction techniques: Automated exposure control, adjustment of the mA and/or kV according to patient size, and/or use of iterative reconstruction technique. FINDINGS: There is limited evaluation of the solid organs without the administration of IV contrast. Examination limited by paucity of intra-abdominal and intrapelvic fat. LOWER THORAX: No visible consolidation, pleural effusion, or pneumothorax. Visualized portions of the heart appear within normal limits of size. LIVER: Hepatic calcifications, likely granulomas. GALLBLADDER AND BILE DUCTS: Cholecystectomy. PANCREAS: Unremarkable unenhanced appearance. ADRENALS: Unremarkable unenhanced appearance. KIDNEYS AND URETERS: No hydronephrosis or obstructing renal calculus. BLADDER: Thick-walled under distended urinary bladder. REPRODUCTIVE: Heterogeneous prostate gland appears enlarged. APPENDIX: No secondary signs of acute appendicitis. BOWEL: The stomach is nondistended. The bowel loops appear within normal limits of caliber without evidence of intestinal obstruction. Moderate to severe diffuse constipation. PERITONEUM: No significant free fluid. No definite free air. LYMPH NODES: No bulky lymphadenopathy identified. VASCULATURE: No aortic aneurysm. Dense atherosclerotic calcifications of the aorta and branches. BONES: Degenerative changes of the spine. OTHER FINDINGS: None. IMPRESSION: Right inguinal hernia containing fluid. Thick-walled under distended urinary bladder. Heterogeneous prostate gland appears enlarged. Recommend correlation with PSA. Moderate to severe diffuse constipation. Hepatic calcifications, likely granulomas. Additional findings as above.
[2018-12-25 19:06] VITALS: BP 139/68; PULSE 58; TEMP 97.6; O2SAT 99
== END 2018-12-25 19:04 | disposition home or self-care (01) ==
LOC: C.ER 13:36
DX: K40.90 Unilateral inguinal hernia, without obstruction or gangrene, not specified as recurrent (principal); K59.00 Constipation, unspecified
CPT/HCPCS: 74176; 80053; 82803; 83690; 85025; 99284; Q9966